=== PATIENT | male | born 1980 | race Caucasian/White ===

== ENCOUNTER 2023-06-19 17:06 | Inpatient (IN) | payer OTHER, SELFPAY ==
[2023-06-19 18:03] VITALS: BMI 30.7
[2023-06-19 19:44] VITALS: BP 134/86; PULSE 76; RESP 18; TEMP 36.3; O2SAT 96
[2023-06-19] MEDS: QUEtiapine Fumarate 400 MG TABLET PO (22:24)
[2023-06-19] MEDS: Melatonin 3 MG TABLET 9 MG PO (22:24)
--- NOTE | 2023-06-19 23:57 | PC.ADMIT ---
Pt is a 43 year old male who was admitted to today at 17:15 due to complaints of heightened depression and +SI. Pt stated that he doesn?t have an ?official plan? but was hyper fixated in the past about jumping in front of a train but it ?seemed really scary.? Pt. now mentions interest in taking fentanyl claiming ?it works for people on accident, so it has to work on purpose.? Pt. reports poor sleep due to drinking large amounts of coffee and being homeless. Pt. reported experiencing auditory hallucinations a little bit and a history of visual hallucinations but hasn?t experienced those ?in a while.? He was compliant with the admission process and was oriented to the unit.
[2023-06-20 08:10] VITALS: BP 128/73; PULSE 65; TEMP 36.8; O2SAT 96
[2023-06-20] MEDS: Lithium Carbonate 300 MG TABLET PO (09:01)
--- NOTE | 2023-06-20 09:41 | HO.PSYADMNOT ---
HPI Date of Service: 06/20/23 Chief Complaint: Si, Psychosis Sources of Information: patient interviewed, chart reviewed and crisis/core team assessment reviewed HPI Subjective Notes: Stone Warning and Conditional Voluntary Narrative: Patient is a 43-year-old male with history bipolar disorder, chronic SI, hypertension, recently discharged from [facility], who presents with mixed manic episode in the face of intermittent medication non adherence and recently evicted from his alf. Patient is verbose, walking around the room while talking, speech is a little bit pressured but he is able to have a conversation. He reports that he has been feeling suicidal for the past year and that a year ago he made a decision he was going to commit suicide but has not found the right time or plan. However, having made this plan has relieved some of his anxiety because when anything challenging happens he will just say it does not matter... meaning that he will eventually be so why worry about it. Patient says that he periodically presents to emergency rooms or respite to buy time so that he can figure out how to commit suicide. Patient says that he has been intermittently not adherent with his medication and also that lithium dose was lowered since he developed of lithium-induced hand tremor; reports significant depression over the past months however he currently feels that he is having a hypomanic episode for the past several days, after discharge from [facility] last week having missed some doses of lithium. Says he has been sleeping very little. Denies alcohol or drug use; very rarely does he experience AVH. Is amenable to medication changes though pessimistic. Past Psychiatric History: Long history of psychiatric illness Recently discharged from [facility] Hospitalized for 9 months in [place] between 2018 to 2019 Medication trials: [place] (causes tremor), Seroquel, Lamictal, clonazepam, Depakote (caused waking) Medical Evaluation Reviewed: Hospitalist Nelda Pending [facility] Medical History (Updated 06/20/23 @ 17:50 by Magno Vallejo MD) Bipolar I disorder with mixed features Family History: Reports presence of family psychiatric illness Social History: Estranged from his family, parents Says his mom was too busy to help raise him Patient says he has a daughter somewhere but no contact Completed high school Worked for years as a carpenters Substance History: Denies any current or recent alcohol or drug use; he says maybe a decade ago he used to drink heavily Trauma History: Emotional childhood trauma Diagnostics Vital Signs (24Hr): Vital Signs - 24 hr 06/19/23 19:44 06/20/23 08:10 Temperature 97.4 F 98.2 F Pulse Rate 76 65 Respiratory Rate 18 Blood Pressure 134/86 128/73 Pulse Oximetry 96 96 Oxygen Delivery Method Room Air Room Air BMI result Body Mass Index 30.7 Labs 06/20/23 08:22 Meds/Allergies Allergies Allergies Allergy/AdvReac Type Severity Reaction Status Date / Time No Known Allergies Allergy Verified 06/19/23 18:03 Mental Status Exam Mental Status Exam Narrative: Pt is alert and oriented; behavior is cooperative, verbose, walking around the room all talking; patient is not in distress; dressed in casual attire with unkempt hair, malodorous; mood is described as it does not matter and affect constricted; eye contact appropriate; Speech verbose, mildly pressured; otherwise normal volume and prosody; some psychomotor agitation present; thought process is organized and goal directed but also circumstantial and can be distracted; Thought content is on a hopelessness to feel better, entertaining the idea of suicide tx; otherwise pertinent to relevant topics and without any delusional content, paranoid ideations or grandiosity; denies +SI/no HI. There is no evidence of perceptual disturbance and denies AVH Patients insight and judgment impaired Assessment & Plan Assessment & Plan (1) Bipolar I disorder with mixed features: Status: Acute Code(s): F31.9 - Bipolar disorder, unspecified Plan Patient is a 43-year-old male with history bipolar disorder, chronic SI, hypertension, recently discharged from [facility], who presents with mixed manic episode in the face of intermittent medication non adherence and recently evicted from his alf. Formulation: -patient is hypomanic and depressed; focused on suicide plan he has been unable to bring to fruition for a year. To some degree under-medicated, on lower dose of past prescribed lithium and Seroquel; asks for Seroquel to be increased back to 800 mg which he says is the only dose at ever helped him sleep. That said, other than preventing manic episodes, it is unclear if this regimen has treated his depression or pessimism. -seems likely there is a characterlogical component to patient's symptoms as well; he is estranged from all his family, feels his mother ignored him and recently kicked out of alf for not participating -patient reports history of multiple concussions says he is has a history of TBI though not diagnosed -Patient is pessimistic that any medication changes will help however agrees to start Vraylar or Latuda (reviewed risks/side effects and patient understands, ask questions and agrees to) Plan: CV Q 15 minute checks Increase lithium ER to 900 mg q.h.s.; previous home dose; patient has developed tremors at this dose in the past but agrees to increase Increase Seroquel to 800 mg q.h.s.; patient says he has been on this dose for years and lower doses do not treat insomnia Strongly consider adding other mood stabilizer such as Vraylar or Latuda; patient agrees Patient educated on: diagnosis, medication risk/benefits and therapeutic strategies Informed Consent: understands Reason for continued inpatient stay Substantial Risk for: rapid decompensation Statement Statement: I have reviewed the history and physical and performed a pertinent examination on my patient. No changes have occurred unless specified. If the History and Physical was not performed prior to admission, the Hospitalist's service will be consulted for completing the admission physical. Time Spent With Patient Time: Total time managing care of this patient today ____ minutes.
--- NOTE | 2023-06-20 11:16 | P.CONHOSP_ITS ---
History of Present Illness Data of Consult Service Date: 06/20/23 Primary Care Provider: Unknown Physician HPI Reason for consult: Admission H&P Pt is a 43-year-old male with a PMH significant for?HTN, GERD, and depression who is admitted to [facility] psychiat[facility] unit for increasing depression with vague SI and previous plan to jump in front of a train. Recently made homeless and not sleeping or taking psychiatric medicatioins. Medical consult for admission H&P. ?Pt states he has been experiencing daily headaches for many years, currently with a mild headache. Otherwise no acute medical complaints at this time. Denies chest pain/ pressure, palpitations. No nausea, vomiting, abdominal pain. Denies shortness of breath. Past history of smoking and alcohol use, though denies recent activity. Admits to occasional marijuana use. Labs reviewed, grossly unremarkable. Vital signs stable. Review of Systems Review of Systems: Mild headache Pt otherwise has no acute medical complaints at this time [facility] Social History Household Members: None Housing: Homeless Housing Other:: Pt. was recently evicted per patient from a [facility] half-way in [place]. Do you presently have visiting nurse or other home services: No Unable to assess alcohol history related to: Unknown Patient Tobacco Use Status: Current everyday Tobacco user Tobacco use type: Cigarette Cigarette Packs Per Day: 0 Cigarettes Per Day: 2 e-Cigarette/Vaping Use: Former Use Second Hand Smoke Exposure: No Substance Use Type: Marijuana Meds Allergies Allergy/AdvReac Type Severity Reaction Status Date / Time No Known Allergies Allergy Verified 06/19/23 18:03 Active Medications: Current Medications Acetaminophen (Acetaminophen 325 Mg Tablet) 650 mg PO Q6H PRN PRN Reason: Headache/Pain Mild Scale (1-3) Al Hydroxide/Mg Hydroxide (Magnesium Hydrox/Alum Hydrox 30 Ml Oral.Susp) 30 ml PO Q6H PRN PRN Reason: Heartburn/Nausea Hydroxyzine HCl (Hydroxyzine Hcl 25 Mg Tablet) 25 mg PO Q6H PRN PRN Reason: Anxiety [place] Carbonate ([place] Carbonate 300 Mg Tablet) 300 mg PO BID [facility] Last Admin: 06/20/23 09:01 Dose: 300 mg Magnesium Hydroxide (Milk Of Magnesia 30 Ml Oral.Susp) 30 ml PO DAILY PRN PRN Reason: Constipation Melatonin (Melatonin 3 Mg Tablet) 9 mg PO BEDTIME [facility] Last Admin: 06/19/23 22:24 Dose: 9 mg Quetiapine Fumarate (Quetiapine Fumarate 400 Mg Tablet) 400 mg PO BEDTIME [facility] Last Admin: 06/19/23 22:24 Dose: 400 mg Quetiapine Fumarate (Quetiapine Fumarate 100 Mg Tablet) 100 mg PO BID PRN PRN Reason: PSYCHOSIS Trazodone HCl (Trazodone Hcl 50 Mg Tablet) 50 mg PO BEDTIME MRX1 PRN PRN Reason: Insomnia Physical Exam Vital Signs and Narrative: Vital Signs: Last Vital Signs Temp 98.2 F 06/20/23 08:10 Pulse 65 06/20/23 08:10 Resp 18 06/19/23 19:44 BP 128/73 06/20/23 08:10 Pulse Ox 96 06/20/23 08:10 O2 Del Method Room Air 06/20/23 08:10 BMI result Body Mass Index 30.7 Constitutional: Alert, in no acute distress. Mental Status: Oriented to person, place and time. Eyes: Pupils are equal, round, and reactive to light. Ear, Nose, and Throat: Oropharynx clear, mucous membranes moist. Ears and nose without deformities. Trachea midline. Respiratory: Clear to auscultation bilaterally. No wheezing, rales, or rhonchi. Cardiovascular: S1, S2 regular. No murmurs, rubs, or gallops. Gastrointestinal: Abdomen soft, non-tender, non-distended. Normal bowel sounds. Neurologic: Cranial nerves II-XII are grossly intact bilaterally. No focal izabel rological deficits. Moves all extremities spontaneously. Skin: No rashes or lesions noted. Musculoskeletal: No cyanosis or clubbing. Extremities: No edema. Assessment and Plan (1) Medical clearance for psychiatric admission: Status: Acute Plan Pt is a 43-year-old male with a PMH significant for?HTN, GERD, and depression who is admitted to [facility] psychiatry unit for increasing depression with vague SI and previous plan to jump in front of a train. Recently made homeless and not sleeping or taking psychiatric medicatioins. Medical consult for admission H&P. Mood disorder Plan as per psychiatry Chronic headaches Patient states has been getting daily headaches for many years Naproxen 250mg TID prn, acetaminophen prn HTN Pt reports hx of HTN not currently on home meds BP currently normotensive No indication for antihypertensives at this time GERD Not currently on home meds, no epigastric/substernal complaints at this time Magnesium hydroxide/aluminum hydroxide prn Consider famotidine if symptoms develop/persist Thank you for allowing us to participate in the care of this patient. Signing off at this time. Please let us know if there are any acute complaints or que stions. Time Spent With Patient Time: Total time managing care of this patient today ____ minutes.
[2023-06-20] MEDS: LORazepam 1 MG TABLET PO ×2 (14:39→21:25)
[2023-06-20 14:47] LABS: Alanine Aminotransferase 104 U/L (0-40); Albumin Level 4.1 g/dL (3.5-5.0); Alkaline Phosphatase 80 U/L (39-117); Anion Gap 12 (12-20); Aspartate Amino Transferase 47 U/L (5-37); Bilirubin Total 0.4 mg/dL (0.0-1.0); Blood Urea Nitrogen 11 mg/dL (9-16); Calcium 9.8 mg/dL (8.4-10.2); Carbon Dioxide 22 mmol/L (22-29); Chloride 109 mmol/L (96-108); Cholesterol 205 mg/dL (<200); Estimated Glomerular Filt Rate > 60; Glucose Fasting 97 mg/dL (60-99); HDL Cholesterol 43 mg/dL (>40); LDL Cholesterol Calculated 139 mg/dL (<100); Potassium 4.3 mmol/L (3.3-5.1); Sodium 139 mmol/L (135-145); Total Protein 6.5 g/dL (6.5-8.0); Triglycerides 115 mg/dL (<150)
[2023-06-20 18:00] VITALS: BP 138/89; PULSE 98; RESP 18; TEMP 36.6; O2SAT 98
[2023-06-20] MEDS: Melatonin 3 MG TABLET 12 MG PO (21:25)
[2023-06-20] MEDS: QUEtiapine Fumarate 400 MG TABLET 800 MG PO (22:09)
[2023-06-21 09:11] VITALS: BP 121/67; PULSE 68; RESP 18; TEMP 37.2; O2SAT 93
[2023-06-21] MEDS: LORazepam 1 MG TABLET PO ×2 (11:10→21:59)
--- NOTE | 2023-06-21 19:41 | HO.PSYCHPN ---
Subjective Subjective Date of Service: 06/21/23 Reason For Visit: Si, Psychosis Interim History: 43-year-old male with history bipolar disorder, chronic SI, hypertension, recently discharged from [facility], who presents with mixed manic episode in the face of intermittent medication non adherence and recently evicted from his assisted. Pt reports he is still feeling suicidal ideation and still think she will kill himself if he was not in the hospital. Medication Compliance: Yes Side effects from medications: No Attending Groups: No Review of Systems Acute medical concerns: No Medical Review of Systems: unchanged Review of Systems Review of Systems Mild headache Pt otherwise has no acute medical complaints at this time Mental Status Exam Mental Status Exam Narrative: Pt is alert and oriented; behavior is cooperative, verbose, walking around the room all talking; patient is not in distress; dressed in casual attire with unkempt hair, malodorous; mood is described as it does not matter and affect constricted; eye contact appropriate; Speech verbose, mildly pressured; otherwise normal volume and prosody; some psychomotor agitation present; thought process is organized and goal directed but also circumstantial and can be distracted; Thought content is on a hopelessness to feel better, entertaining the idea of suicide tx; otherwise pertinent to relevant topics and without any delusional content, paranoid ideations or grandiosity; denies +SI/no HI. There is no evidence of perceptual disturbance and denies AVH Patients insight and judgment impaired Diagnostics Vital Signs (24Hr): Vital Signs - 24 hr 06/21/23 09:11 Temperature 98.9 F Pulse Rate 68 Respiratory Rate 18 Blood Pressure 121/67 Pulse Oximetry 93 Oxygen Delivery Method Room Air BMI result Body Mass Index 30.7 Labs 06/20/23 08:22 Labs: Laboratory Results - last 48 hr 06/20/23 08:22 Sodium 139 Potassium 4.3 Chloride 109 H Carbon Dioxide 22 Anion Gap 12 BUN 11 Creatinine 0.96 Estim Creat Clear Calc 117.0 Estimated GFR > 60 Fasting Glucose 97 Calcium 9.8 Total Bilirubin 0.4 AST 47 H ALT 104 H Alkaline Phosphatase 80 Total Protein 6.5 Albumin 4.1 Triglycerides 115 Cholesterol 205 H LDL Cholesterol, Calc 139 H HDL Cholesterol 43 Medications Medications Current Medications Acetaminophen (Acetaminophen 325 Mg Tablet) 650 mg PO Q6H PRN PRN Reason: Headache/Pain Mild Scale (1-3) Al Hydroxide/Mg Hydroxide (Magnesium Hydrox/Alum Hydrox 30 Ml Oral.Susp) 30 ml PO Q6H PRN PRN Reason: Heartburn/Nausea Hydroxyzine HCl (Hydroxyzine Hcl 25 Mg Tablet) 25 mg PO Q6H PRN PRN Reason: Anxiety [place] Carbonate ([place] Carbonate Er 450 Mg Tablet.Er) 900 mg PO BEDTIME [facility] Lorazepam (Lorazepam 1 Mg Tablet) 1 mg PO BID [facility] Last Admin: 06/21/23 11:10 Dose: 1 mg Magnesium Hydroxide (Milk Of Magnesia 30 Ml Oral.Susp) 30 ml PO DAILY PRN PRN Reason: Constipation Melatonin (Melatonin 3 Mg Tablet) 12 mg PO BEDTIME [facility] Last Admin: 06/20/23 21:25 Dose: 12 mg Naproxen (Naproxen 250 Mg Tablet) 250 mg PO TID PRN PRN Reason: Headache Quetiapine Fumarate (Quetiapine Fumarate 100 Mg Tablet) 100 mg PO BID PRN PRN Reason: PSYCHOSIS Quetiapine Fumarate (Quetiapine Fumarate 400 Mg Tablet) 800 mg PO BEDTIME [facility] Last Admin: 06/20/23 22:09 Dose: 800 mg Trazodone HCl (Trazodone Hcl 50 Mg Tablet) 50 mg PO BEDTIME MRX1 PRN PRN Reason: Insomnia Allergies Allergies Allergy/AdvReac Type Severity Reaction Status Date / Time No Known Allergies Allergy Verified 06/19/23 18:03 Assessment & Plan Assessment & Plan (1) Bipolar I disorder with mixed features: Status: Acute Code(s): F31.9 - Bipolar disorder, unspecified Plan Patient is a 43-year-old male with history bipolar disorder, chronic SI, hypertension, recently discharged from [facility], who presents with mixed manic episode in the face of intermittent medication non adherence and recently evicted from his assisted. Formulation: -patient is hypomanic and depressed; focused on suicide plan he has been unable to bring to fruition for a year. To some degree under-medicated, on lower dose of past prescribed lithium and Seroquel; asks for Seroquel to be increased back to 800 mg which he says is the only dose at ever helped him sleep. That said, other than preventing manic episodes, it is unclear if this regimen has treated his depression or pessimism. -seems likely there is a characterlogical component to patient's symptoms as well; he is estranged from all his family, feels his mother ignored him and recently kicked out of assisted for not participating -patient reports history of multiple concussions says he is has a history of TBI though not diagnosed -Patient is pessimistic that any medication changes will help however agrees to start Vraylar or Latuda (reviewed risks/side effects and patient understands, ask questions and agrees to) Plan: CV Q 15 minute checks Increase lithium ER to 900 mg q.h.s.; previous home dose; patient has developed tremors at this dose in the past but agrees to increase Increase Seroquel to 800 mg q.h.s.; patient says he has been on this dose for years and lower doses do not treat insomnia Strongly consider adding other mood stabilizer such as Vraylar or Latuda; patient agrees 06/21/23 continue treatmetn plan Patient educated on: diagnosis, medication risk/benefits and therapeutic strategies Informed Consent: further education needed Reason for continued inpatient stay Substantial Risk for: harm to self, inability to function and rapid decompensation Time Spent With Patient Time: Total time managing care of this patient today ____ minutes.
[2023-06-21] MEDS: Melatonin 3 MG TABLET 12 MG PO (21:58)
[2023-06-21] MEDS: QUEtiapine Fumarate 400 MG TABLET 800 MG PO (21:59)
[2023-06-21] MEDS: Lithium Carbonate ER 450 MG TABLET.ER 900 MG PO (21:59)
[2023-06-22 07:55] VITALS: BP 114/69; PULSE 73; RESP 18; TEMP 36; O2SAT 95
[2023-06-22] MEDS: LORazepam 1 MG TABLET PO ×2 (09:17→21:17)
--- NOTE | 2023-06-22 10:42 | P.PNPSI_ITS ---
Subjective Subjective Date of Service: 06/22/23 Reason For Visit: Si, Psychosis Interim History: 43-year-old male with history bipolar disorder, chronic SI, hypertension, recently discharged from [facility], who presents with mixed manic episode in the face of intermittent medication non adherence and recently evicted from his alf. Pt reports he is still feeling suicidal ideation and still think he will kill himself if he was not in the hospital. Pt irritable, paranoid. pacing at times. Medication Compliance: Yes Side effects from medications: No Attending Groups: No Review of Systems Acute medical concerns: No Medical Review of Systems: unchanged Review of Systems Review of Systems Mild headache Pt otherwise has no acute medical complaints at this time Mental Status Exam Mental Status Exam Narrative: Pt is alert and oriented; behavior is cooperative, verbose, walking around the room all talking; patient is not in distress; dressed in casual attire with unkempt hair, malodorous; mood is described as it does not matter and affect constricted; eye contact appropriate; Speech verbose, mildly pressured; otherwise normal volume and prosody; some psychomotor agitation present; thought process is organized and goal directed but also circumstantial and can be distracted; Thought content is on a hopelessness to feel better, entertaining the idea of suicide tx; otherwise pertinent to relevant topics and without any delusional content, paranoid ideations or grandiosity; denies +SI/no HI. There is no evidence of perceptual disturbance and denies AVH. Patients insight and judgment impaired Diagnostics Vital Signs (24Hr): Vital Signs - 24 hr 06/22/23 07:55 Temperature 96.8 F Pulse Rate 73 Respiratory Rate 18 Blood Pressure 114/69 Pulse Oximetry 95 Oxygen Delivery Method Room Air BMI result Body Mass Index 30.7 Labs 06/20/23 08:22 Labs: Laboratory Results - last 48 hr 06/20/23 08:22 Sodium 139 Potassium 4.3 Chloride 109 H Carbon Dioxide 22 Anion Gap 12 BUN 11 Creatinine 0.96 Estim Creat Clear Calc 117.0 Estimated GFR > 60 Fasting Glucose 97 Calcium 9.8 Total Bilirubin 0.4 AST 47 H ALT 104 H Alkaline Phosphatase 80 Total Protein 6.5 Albumin 4.1 Triglycerides 115 Cholesterol 205 H LDL Cholesterol, Calc 139 H HDL Cholesterol 43 Medications Medications Current Medications Acetaminophen (Acetaminophen 325 Mg Tablet) 650 mg PO Q6H PRN PRN Reason: Headache/Pain Mild Scale (1-3) Al Hydroxide/Mg Hydroxide (Magnesium Hydrox/Alum Hydrox 30 Ml Oral.Susp) 30 ml PO Q6H PRN PRN Reason: Heartburn/Nausea Hydroxyzine HCl (Hydroxyzine Hcl 25 Mg Tablet) 25 mg PO Q6H PRN PRN Reason: Anxiety [place] Carbonate ([place] Carbonate Er 450 Mg Tablet.Er) 900 mg PO BEDTIME [facility] Last Admin: 06/21/23 21:59 Dose: 900 mg Lorazepam (Lorazepam 1 Mg Tablet) 1 mg PO BID [facility] Last Admin: 06/22/23 09:17 Dose: 1 mg Magnesium Hydroxide (Milk Of Magnesia 30 Ml Oral.Susp) 30 ml PO DAILY PRN PRN Reason: Constipation Melatonin (Melatonin 3 Mg Tablet) 12 mg PO BEDTIME [facility] Last Admin: 06/21/23 21:58 Dose: 12 mg Naproxen (Naproxen 250 Mg Tablet) 250 mg PO TID PRN PRN Reason: Headache Quetiapine Fumarate (Quetiapine Fumarate 100 Mg Tablet) 100 mg PO BID PRN PRN Reason: PSYCHOSIS Quetiapine Fumarate (Quetiapine Fumarate 400 Mg Tablet) 800 mg PO BEDTIME [facility] Last Admin: 06/21/23 21:59 Dose: 800 mg Trazodone HCl (Trazodone Hcl 50 Mg Tablet) 50 mg PO BEDTIME MRX1 PRN PRN Reason: Insomnia Allergies Allergies Allergy/AdvReac Type Severity Reaction Status Date / Time No Known Allergies Allergy Verified 06/19/23 18:03 Assessment & Plan Assessment & Plan (1) Bipolar I disorder with mixed features: Status: Acute Code(s): F31.9 - Bipolar disorder, unspecified Plan Patient is a 43-year-old male with history bipolar disorder, chronic SI, hypertension, recently discharged from [facility], who presents with mixed manic episode in the face of intermittent medication non adherence and recently evicted from his alf. Formulation: -patient is hypomanic and depressed; focused on suicide plan he has been unable to bring to fruition for a year. To some degree under-medicated, on lower dose of past prescribed lithium and Seroquel; asks for Seroquel to be increased back to 800 mg which he says is the only dose at ever helped him sleep. That said, other than preventing manic episodes, it is unclear if this regimen has treated his depression or pessimism. -seems likely there is a characterlogical component to patient's symptoms as well; he is estranged from all his family, feels his mother ignored him and recently kicked out of alf for not participating -patient reports history of multiple concussions says he is has a history of TBI though not diagnosed -Patient is pessimistic that any medication changes will help however agrees to start Vraylar or Latuda (reviewed risks/side effects and patient understands, ask questions and agrees to) Plan: CV Q 15 minute checks Increase lithium ER to 900 mg q.h.s.; previous home dose; patient has developed tremors at this dose in the past but agrees to increase Increase Seroquel to 800 mg q.h.s.; patient says he has been on this dose for years and lower doses do not treat insomnia Strongly consider adding other mood stabilizer such as Vraylar or Latuda; patient agrees 06/21/23 continue treatment plan 06/22/23 continue treatment plan Patient educated on: medication risk/benefits and therapeutic strategies Informed Consent: further education needed Reason for continued inpatient stay Substantial Risk for: harm to self, inability to function and rapid decompensation Time Spent With Patient Time: Total time managing care of this patient today ____ minutes.
[2023-06-22 19:47] VITALS: BP 133/77; PULSE 92; TEMP 36.6
[2023-06-22] MEDS: Lithium Carbonate ER 450 MG TABLET.ER 900 MG PO (21:17)
[2023-06-22] MEDS: Melatonin 3 MG TABLET 12 MG PO (21:17)
[2023-06-22] MEDS: QUEtiapine Fumarate 400 MG TABLET 800 MG PO (21:52)
[2023-06-23 08:30] VITALS: BP 109/69; PULSE 71; RESP 18; TEMP 36.3; O2SAT 96
[2023-06-23] MEDS: LORazepam 1 MG TABLET PO ×2 (08:58→21:17)
--- NOTE | 2023-06-23 09:32 | HO.PSYCHPN ---
Subjective Subjective Date of Service: 06/23/23 Reason For Visit: Si, Psychosis Subjective Notes: Conditional Voluntary Interim History: Reviewed in team and . Pt presents guarded and brief during 1:1. He reports suicidal ideation with no plan. Pt stated, I'm waiting to see if the increase in lithium works . Medication Compliance: Yes Side effects from medications: No Review of Systems Constitutional: Reports as per HPI Eyes: Reports as per HPI Reports as per HPI Cardiovascular: Reports as per HPI Respiratory: Reports as per HPI Gastrointestinal: Reports as per HPI Genitourinary: Reports as per HPI Musculoskeletal: Reports as per HPI Skin/Breast: Reports as per HPI Reports as per HPI Psychiatric: Reports as per HPI Endocrine: Reports as per HPI Hematologic/Lymphatic: Reports as per HPI Allergic/Immunologic: Reports as per HPI Mental Status Exam Mental Status Exam Narrative: Pt is alert and oriented; behavior is guarded and calm; dressed in casual attire; mood is described as depressed ; eye contact appropriate; Speech is normal rate, volume and prosody and not pressured; no psychomotor agitation/retardation present; thought process is organized and goal directed; Thought content is on tx; otherwise pertinent to relevant topics and without any delusional content, paranoid ideations or grandiosity; denies HI. he reports suicidal ideation with no plan. There is no evidence of perceptual disturbance. Patients insight and judgment are poor. Diagnostics Vital Signs (24Hr): Vital Signs - 24 hr 06/22/23 19:47 Temperature 97.8 F Pulse Rate 92 Blood Pressure 133/77 BMI result Body Mass Index 30.7 Labs 06/20/23 08:22 Medications Medications Current Medications Acetaminophen (Acetaminophen 325 Mg Tablet) 650 mg PO Q6H PRN PRN Reason: Headache/Pain Mild Scale (1-3) Al Hydroxide/Mg Hydroxide (Magnesium Hydrox/Alum Hydrox 30 Ml Oral.Susp) 30 ml PO Q6H PRN PRN Reason: Heartburn/Nausea Hydroxyzine HCl (Hydroxyzine Hcl 25 Mg Tablet) 25 mg PO Q6H PRN PRN Reason: Anxiety [place] Carbonate ([place] Carbonate Er 450 Mg Tablet.Er) 900 mg PO BEDTIME [facility] Last Admin: 06/22/23 21:17 Dose: 900 mg Lorazepam (Lorazepam 1 Mg Tablet) 1 mg PO BID [facility] Last Admin: 06/23/23 08:58 Dose: 1 mg Magnesium Hydroxide (Milk Of Magnesia 30 Ml Oral.Susp) 30 ml PO DAILY PRN PRN Reason: Constipation Melatonin (Melatonin 3 Mg Tablet) 12 mg PO BEDTIME [facility] Last Admin: 06/22/23 21:17 Dose: 12 mg Naproxen (Naproxen 250 Mg Tablet) 250 mg PO TID PRN PRN Reason: Headache Quetiapine Fumarate (Quetiapine Fumarate 100 Mg Tablet) 100 mg PO BID PRN PRN Reason: PSYCHOSIS Quetiapine Fumarate (Quetiapine Fumarate 400 Mg Tablet) 800 mg PO BEDTIME [facility] Last Admin: 06/22/23 21:52 Dose: 800 mg Trazodone HCl (Trazodone Hcl 50 Mg Tablet) 50 mg PO BEDTIME MRX1 PRN PRN Reason: Insomnia Allergies Allergies Allergy/AdvReac Type Severity Reaction Status Date / Time No Known Allergies Allergy Verified 06/19/23 18:03 Assessment & Plan Assessment & Plan (1) Bipolar I disorder with mixed features: Status: Acute Code(s): F31.9 - Bipolar disorder, unspecified Plan Patient is a 43-year-old male with history bipolar disorder, chronic SI, hypertension, recently discharged from [facility], who presents with mixed manic episode in the face of intermittent medication non adherence and recently evicted from his nursing home. Formulation: -patient is hypomanic and depressed; focused on suicide plan he has been unable to bring to fruition for a year. To some degree under-medicated, on lower dose of past prescribed lithium and Seroquel; asks for Seroquel to be increased back to 800 mg which he says is the only dose at ever helped him sleep. That said, other than preventing manic episodes, it is unclear if this regimen has treated his depression or pessimism. -seems likely there is a characterlogical component to patient's symptoms as well; he is estranged from all his family, feels his mother ignored him and recently kicked out of nursing home for not participating -patient reports history of multiple concussions says he is has a history of TBI though not diagnosed -Patient is pessimistic that any medication changes will help however agrees to start Vraylar or Latuda (reviewed risks/side effects and patient understands, ask questions and agrees to) Plan: CV Q 15 minute checks Increase lithium ER to 900 mg q.h.s.; previous home dose; patient has developed tremors at this dose in the past but agrees to increase Increase Seroquel to 800 mg q.h.s.; patient says he has been on this dose for years and lower doses do not treat insomnia Strongly consider adding other mood stabilizer such as Vraylar or Latuda; patient agrees 06/21/23 continue treatmetn plan 06/23: start vraylar 1.5mg PO daily Patient educated on: diagnosis, medication risk/benefits and therapeutic strategies Informed Consent: understands and further education needed Reason for continued inpatient stay Substantial Risk for: med/psych decompensation Time Spent With Patient Time: Total time managing care of this patient today 30____ minutes.
[2023-06-23 18:00] VITALS: BP 136/76; PULSE 92; RESP 16; TEMP 36.1; O2SAT 96
[2023-06-23] MEDS: Lithium Carbonate ER 450 MG TABLET.ER 900 MG PO (21:17)
[2023-06-23] MEDS: Melatonin 3 MG TABLET 12 MG PO (21:17)
[2023-06-23] MEDS: QUEtiapine Fumarate 400 MG TABLET 800 MG PO (21:47)
[2023-06-24 08:00] VITALS: BP 112/63; PULSE 64; TEMP 36.2; O2SAT 93
[2023-06-24] MEDS: LORazepam 1 MG TABLET PO ×2 (09:08→21:22)
[2023-06-24] MEDS: Cariprazine HCl 1.5 MG CAPSULE PO (09:08)
[2023-06-24] MEDS: Omeprazole 40 MG CAPSULE.DR PO (15:37)
--- NOTE | 2023-06-24 16:34 | HO.PSYCHPN ---
Subjective Subjective Date of Service: 06/24/23 Reason For Visit: Si, Psychosis Interim History: Pt seen, discussed with team Plan of care reviewed Isolative Team reports pt asked to leave his skilled nursing, he has dropped services, refused follow up. Today asks for Prilosec for GERD. Given 40 mg today with 20 bid to begin 06/25. Compliant with regime, refusing to engage in out patien services. Medication Compliance: Yes Side effects from medications: No Attending Groups: No Review of Systems Acute medical concerns: No Medical Review of Systems: unchanged Mental Status Exam Mental Status Exam Patient Appearance: Disheveled Patient Orientation: Person, Place, Time and Situation Level of Consciousness: Alert Patient Behavior: Guarded, Resistive to Care and Distractible Mood Description: Hostile Affect Description: Flat Patient Cognition Impaired: No Ability to Follow Directions: Fair Speech Pattern: Spontaneous Speech Memory Description: Episodic Impaired Hallucinations: None Delusions: Paranoid Ideation Thought Process: Distracted Thought Content: positive for Circumstantial, positive for Suicidal Ideation (denies) and positive for Homicidal Ideation (denies) Depressive Symptoms: Increased Irritability and Thoughts of /Suicide (denies) Judgement: Good Diagnostics Vital Signs (24Hr): Vital Signs - 24 hr 06/23/23 18:00 06/24/23 08:00 Temperature 96.9 F 97.2 F Pulse Rate 92 64 Respiratory Rate 16 Blood Pressure 136/76 112/63 Pulse Oximetry 96 93 Oxygen Delivery Method Room Air Room Air BMI result Body Mass Index 30.7 Labs 06/20/23 08:22 Medications Medications Current Medications Acetaminophen (Acetaminophen 325 Mg Tablet) 650 mg PO Q6H PRN PRN Reason: Headache/Pain Mild Scale (1-3) Al Hydroxide/Mg Hydroxide (Magnesium Hydrox/Alum Hydrox 30 Ml Oral.Susp) 30 ml PO Q6H PRN PRN Reason: Heartburn/Nausea Cariprazine (Cariprazine Hcl 1.5 Mg Capsule) 1.5 mg PO DAILY [facility] Last Admin: 06/24/23 09:08 Dose: 1.5 mg Hydroxyzine HCl (Hydroxyzine Hcl 25 Mg Tablet) 25 mg PO Q6H PRN PRN Reason: Anxiety [place] Carbonate ([place] Carbonate Er 450 Mg Tablet.Er) 900 mg PO BEDTIME [facility] Last Admin: 06/23/23 21:17 Dose: 900 mg Lorazepam (Lorazepam 1 Mg Tablet) 1 mg PO BID [facility] Last Admin: 06/24/23 09:08 Dose: 1 mg Magnesium Hydroxide (Milk Of Magnesia 30 Ml Oral.Susp) 30 ml PO DAILY PRN PRN Reason: Constipation Melatonin (Melatonin 3 Mg Tablet) 12 mg PO BEDTIME [facility] Last Admin: 06/23/23 21:17 Dose: 12 mg Naproxen (Naproxen 250 Mg Tablet) 250 mg PO TID PRN PRN Reason: Headache Omeprazole (Omeprazole 20 Mg Capsule.Dr) 20 mg PO BID [facility] Quetiapine Fumarate (Quetiapine Fumarate 100 Mg Tablet) 100 mg PO BID PRN PRN Reason: PSYCHOSIS Quetiapine Fumarate (Quetiapine Fumarate 400 Mg Tablet) 800 mg PO BEDTIME [facility] Last Admin: 06/23/23 21:47 Dose: 800 mg Trazodone HCl (Trazodone Hcl 50 Mg Tablet) 50 mg PO BEDTIME MRX1 PRN PRN Reason: Insomnia Allergies Allergies Allergy/AdvReac Type Severity Reaction Status Date / Time No Known Allergies Allergy Verified 06/19/23 18:03 Assessment & Plan Assessment & Plan (1) Bipolar I disorder with mixed features: Status: Acute Code(s): F31.9 - Bipolar disorder, unspecified Plan Patient is a 43-year-old male with history bipolar disorder, chronic SI, hypertension, recently discharged from [facility], who presents with mixed manic episode in the face of intermittent medication non adherence and recently evicted from his skilled nursing. Formulation: -patient is hypomanic and depressed; focused on suicide plan he has been unable to bring to fruition for a year. To some degree under-medicated, on lower dose of past prescribed lithium and Seroquel; asks for Seroquel to be increased back to 800 mg which he says is the only dose at ever helped him sleep. That said, other than preventing manic episodes, it is unclear if this regimen has treated his depression or pessimism. -seems likely there is a characterlogical component to patient's symptoms as well; he is estranged from all his family, feels his mother ignored him and recently kicked out of skilled nursing for not participating -patient reports history of multiple concussions says he is has a history of TBI though not diagnosed -Patient is pessimistic that any medication changes will help however agrees to start Vraylar or Latuda (reviewed risks/side effects and patient understands, ask questions and agrees to) Plan: CV Q 15 minute checks Increase lithium ER to 900 mg q.h.s.; previous home dose; patient has developed tremors at this dose in the past but agrees to increase Increase Seroquel to 800 mg q.h.s.; patient says he has been on this dose for years and lower doses do not treat insomnia Strongly consider adding other mood stabilizer such as Vraylar or Latuda; patient agrees 06/21/23 continue treatmetn plan 06/23: start vraylar 1.5mg PO daily 06/24: continue current regime and plan Prilosec 20 mg bid Continue to attempt to engage pt in a treatment plan/aftercare Patient educated on: therapeutic strategies Informed Consent: further education needed Reason for continued inpatient stay Substantial Risk for: rapid decompensation Time Spent With Patient Time: Total time managing care of this patient today ____ minutes.
[2023-06-24 18:00] VITALS: BP 133/80; PULSE 114; RESP 16; TEMP 36; O2SAT 98
[2023-06-24] MEDS: Melatonin 3 MG TABLET 12 MG PO (21:22)
[2023-06-24] MEDS: Omeprazole 20 MG CAPSULE.DR PO (21:23)
[2023-06-24] MEDS: Lithium Carbonate ER 450 MG TABLET.ER 900 MG PO (21:23)
[2023-06-24] MEDS: QUEtiapine Fumarate 400 MG TABLET 800 MG PO (21:51)
[2023-06-25] MEDS: Omeprazole 20 MG CAPSULE.DR PO ×2 (08:01→21:37)
[2023-06-25] MEDS: Cariprazine HCl 1.5 MG CAPSULE PO (08:01)
[2023-06-25] MEDS: LORazepam 1 MG TABLET PO ×2 (08:01→21:37)
[2023-06-25 08:35] VITALS: BP 112/72; PULSE 98; RESP 16; TEMP 36.2; O2SAT 96
[2023-06-25 09:09] LABS: Lithium 0.62 mmol/L (0.60-1.20)
--- NOTE | 2023-06-25 17:00 | HO.PSYCHPN ---
Subjective Subjective Date of Service: 06/25/23 Reason For Visit: Si, Psychosis Interim History: Pt seen, discussed with team. Pt had declined all referral offers Accepting of medications. Pt can return to [facility] care t, however [facility] will not be an option. He was evicted in April. Team reports increase in sx when housing is threatened Will plan to discharge 06/26 to a alf as pt is refusing of referrals. Encouraged pt to reconsider services offered for out pt support. Medication Compliance: Yes Side effects from medications: No Attending Groups: No Review of Systems Acute medical concerns: No Medical Review of Systems: unchanged Mental Status Exam Mental Status Exam Patient Appearance: Disheveled Patient Orientation: Person, Place, Time and Situation Level of Consciousness: Alert Patient Behavior: Guarded, Resistive to Care and Distractible Mood Description: Hostile Affect Description: Flat Patient Cognition Impaired: No Ability to Follow Directions: Fair Speech Pattern: Spontaneous Speech Memory Description: Episodic Impaired Hallucinations: None Delusions: Paranoid Ideation Thought Process: Distracted Thought Content: positive for Circumstantial, positive for Suicidal Ideation (denies) and positive for Homicidal Ideation (denies) Depressive Symptoms: Increased Irritability and Thoughts of /Suicide (denies) Judgement: Good Diagnostics Vital Signs (24Hr): Vital Signs - 24 hr 06/24/23 18:00 06/25/23 08:35 Temperature 96.8 F 97.1 F Pulse Rate 114 H 98 Respiratory Rate 16 16 Blood Pressure 133/80 112/72 Pulse Oximetry 98 96 Oxygen Delivery Method Room Air Room Air BMI result Body Mass Index 30.7 Labs 06/20/23 08:22 Labs: Laboratory Results - last 48 hr 06/25/23 08:04 [place] 0.62 Medications Medications Current Medications Acetaminophen (Acetaminophen 325 Mg Tablet) 650 mg PO Q6H PRN PRN Reason: Headache/Pain Mild Scale (1-3) Al Hydroxide/Mg Hydroxide (Magnesium Hydrox/Alum Hydrox 30 Ml Oral.Susp) 30 ml PO Q6H PRN PRN Reason: Heartburn/Nausea Cariprazine (Cariprazine Hcl 1.5 Mg Capsule) 1.5 mg PO DAILY [facility] Last Admin: 06/25/23 08:01 Dose: 1.5 mg Hydroxyzine HCl (Hydroxyzine Hcl 25 Mg Tablet) 25 mg PO Q6H PRN PRN Reason: Anxiety [place] Carbonate ([place] Carbonate Er 450 Mg Tablet.Er) 900 mg PO BEDTIME [facility] Last Admin: 06/24/23 21:23 Dose: 900 mg Lorazepam (Lorazepam 1 Mg Tablet) 1 mg PO BID [facility] Last Admin: 06/25/23 08:01 Dose: 1 mg Magnesium Hydroxide (Milk Of Magnesia 30 Ml Oral.Susp) 30 ml PO DAILY PRN PRN Reason: Constipation Melatonin (Melatonin 3 Mg Tablet) 12 mg PO BEDTIME [facility] Last Admin: 06/24/23 21:22 Dose: 12 mg Naproxen (Naproxen 250 Mg Tablet) 250 mg PO TID PRN PRN Reason: Headache Omeprazole (Omeprazole 20 Mg Capsule.Dr) 20 mg PO BID [facility] Last Admin: 06/25/23 08:01 Dose: 20 mg Quetiapine Fumarate (Quetiapine Fumarate 100 Mg Tablet) 100 mg PO BID PRN PRN Reason: PSYCHOSIS Quetiapine Fumarate (Quetiapine Fumarate 400 Mg Tablet) 800 mg PO BEDTIME [facility] Last Admin: 06/24/23 21:51 Dose: 800 mg Trazodone HCl (Trazodone Hcl 50 Mg Tablet) 50 mg PO BEDTIME MRX1 PRN PRN Reason: Insomnia Allergies Allergies Allergy/AdvReac Type Severity Reaction Status Date / Time No Known Allergies Allergy Verified 06/19/23 18:03 Assessment & Plan Assessment & Plan (1) Bipolar I disorder with mixed features: Status: Acute Code(s): F31.9 - Bipolar disorder, unspecified Plan Patient is a 43-year-old male with history bipolar disorder, chronic SI, hypertension, recently discharged from [facility], who presents with mixed manic episode in the face of intermittent medication non adherence and recently evicted from his skilled nursing. Formulation: -patient is hypomanic and depressed; focused on suicide plan he has been unable to bring to fruition for a year. To some degree under-medicated, on lower dose of past prescribed lithium and Seroquel; asks for Seroquel to be increased back to 800 mg which he says is the only dose at ever helped him sleep. That said, other than preventing manic episodes, it is unclear if this regimen has treated his depression or pessimism. -seems likely there is a characterlogical component to patient's symptoms as well; he is estranged from all his family, feels his mother ignored him and recently kicked out of skilled nursing for not participating -patient reports history of multiple concussions says he is has a history of TBI though not diagnosed -Patient is pessimistic that any medication changes will help however agrees to start Vraylar or Latuda (reviewed risks/side effects and patient understands, ask questions and agrees to) Plan: CV Q 15 minute checks Increase lithium ER to 900 mg q.h.s.; previous home dose; patient has developed tremors at this dose in the past but agrees to increase Increase Seroquel to 800 mg q.h.s.; patient says he has been on this dose for years and lower doses do not treat insomnia Strongly consider adding other mood stabilizer such as Vraylar or Latuda; patient agrees 06/21/23 continue treatmetn plan 06/23: start vraylar 1.5mg PO daily 06/25/23 continue current regime, discharge planning, encourage pt to accept community supports. Patient educated on: therapeutic strategies Informed Consent: understands Reason for continued inpatient stay Substantial Risk for: rapid decompensation Time Spent With Patient Time: Total time managing care of this patient today ____ minutes.
[2023-06-25 18:00] VITALS: BP 140/94; PULSE 101; TEMP 36.2; O2SAT 95
[2023-06-25] MEDS: Lithium Carbonate ER 450 MG TABLET.ER 900 MG PO (21:37)
[2023-06-25] MEDS: Melatonin 3 MG TABLET 12 MG PO (21:37)
[2023-06-25] MEDS: QUEtiapine Fumarate 400 MG TABLET 800 MG PO (21:37)
[2023-06-26] MEDS: Cariprazine HCl 1.5 MG CAPSULE PO (08:46)
[2023-06-26] MEDS: Omeprazole 20 MG CAPSULE.DR PO (08:46)
[2023-06-26 09:48] VITALS: BP 129/74; PULSE 95; RESP 16; TEMP 36.6; O2SAT 97
--- NOTE | 2023-06-26 17:55 | PM.PSYDC ---
DS: Providers Provider Date of Service: 06/26/23 Date of admission: 06/19/23 17:06 Date of discharge: 06/26/23 Primary care physician: Unknown Physician Admitting clinician: Magno Vallejo Attending physician on admission: Magno Vallejo Consults: 06/19/23 18:30 Consult to Hospitalist Routine Comment: Consulting Provider: Hospitalist Reason For Exam: direct admission from [facility] Attending physician on discharge: Claudio Fitch Discharging clinician: Diane García DS: Diagnosis Discharge Diagnosis (1) Bipolar I disorder with mixed features: Status: Acute DS: Medications Discharge Medications Home Medications: Previous Rx's Medication Instructions Recorded cariprazine 1.5 mg capsule 1.5 mg PO DAILY #0 caps 06/26/23 (Vraylar) lithium carbonate 450 mg 900 mg (2 x 450 mg) PO BEDTIME #0 06/26/23 tablet,extended release tabs melatonin 3 mg tablet 12 mg (4 x 3 mg) PO BEDTIME #0 tabs 06/26/23 omeprazole 20 mg capsule,delayed 20 mg PO BID #0 caps 06/26/23 release quetiapine 400 mg tablet 800 mg (2 x 400 mg) PO BEDTIME #0 06/26/23 tabs Mental Status Exam Mental Status Exam Patient Appearance: Disheveled Patient Orientation: Person, Place, Time and Situation Level of Consciousness: Alert Patient Behavior: Guarded, Resistive to Care and Distractible Mood Description: Hostile Affect Description: Flat Patient Cognition Impaired: No Ability to Follow Directions: Fair Speech Pattern: Spontaneous Speech Memory Description: Episodic Impaired Hallucinations: None Delusions: Paranoid Ideation Thought Process: Distracted Thought Content: positive for Circumstantial, positive for Suicidal Ideation (denies) and positive for Homicidal Ideation (denies) Depressive Symptoms: Increased Irritability and Thoughts of /Suicide (denies) Judgement: Good Data Data Completed and Pending Completed studies during hospitalization [Text1]: 06/20/23 06/25/23 08:22 08:04 Sodium 139 Potassium 4.3 Chloride 109 H Carbon Dioxide 22 Anion Gap 12 BUN 11 Creatinine 0.96 Estim Creat Clear Calc 117.0 Estimated GFR > 60 Fasting Glucose 97 Calcium 9.8 Total Bilirubin 0.4 AST 47 H ALT 104 H Alkaline Phosphatase 80 Total Protein 6.5 Albumin 4.1 Triglycerides 115 Cholesterol 205 H LDL Cholesterol, Calc 139 H HDL Cholesterol 43 [place] 0.62 DS: Summary Hospital Course Hospital Course: Admission to adult psychiatry for exacerbation of bipolar disorder. He was stabilized, accepted meds while in hospital, howerver, pt, while on the unit, refused all treatment interventions, including referrals for out patient care, [facility] case management and out patient prescriptions. He also declined referrals to local shelters. He expressed anger that the team was not able to provide the housing option he wanted prior to discharge. Time spent discussing smoking cessation with patient: 3 to 10 minutes Status at Discharge Functional status at discharge: independent ambulation Overall status at discharge: patient is back to baseline Time Spent with Patient Time attestation: Total time managing care of this patient today ____ minutes. Time spent: Greater than 30 minutes Discharge Plan Discharge Anticipated Discharge Date/Time: 06/26/23 12:11 Patient Disposition: Xfer Other Discharge Diagnosis: Bipolar Disorder Type 1, with mixed features Referrals: [facility] [Other] (Walk in if needed ) Discharge Medications: New Vraylar 1.5 mg Capsule 1.5 mg PO DAILY Qty: 0 0RF melatonin 3 mg Tablet 12 mg PO BEDTIME Qty: 0 0RF lithium carbonate 450 mg Tablet Extended Release 900 mg PO BEDTIME Qty: 0 0RF omeprazole 20 mg Capsule,Delayed Release(Dr/Ec) 20 mg PO BID Qty: 0 0RF quetiapine 400 mg Tablet 800 mg PO BEDTIME Qty: 0 0RF Discharge Orders: Discharge Order (Routine); Ordered 06/26/23 Ordered By: Diane García Diet: Advance to usual diet Activity on Discharge: As tolerated Stand Alone Forms: Patient Portal Discharge page, Community Support Care Plan Goals: Mood and Behavioral Stabilization Health Concerns: Mood and Behavioral Stabilization Plan of Treatment: [facility] has refused all services, referrals and prescriptions. We encourage him to reconsider this choice Crisis Numbers [phone], [phone] Call and or return if needed Assessment: [facility] has refused all services, referrals and prescriptions. We have encouraged him to reconsider this choice. He has taken medicine while in hospital. [place] level is 0.62 on 06/25/23. There have been no overt side effects of medicines. [facility] has met with pt while on the unit. He has refused their offer of assistance in the community. He has refused a referral to a fci, refused prescriptions and refused to have out patient services scheduled to continue treatment. The above list of medications is reflective of what he was receiving in hospital. He reports depressive symptoms without psychosis, SI, HI. He is struggling with not having the housing options he wants vs what is currently available for access. Discharge Date/Time: 06/26/23 11:38
== END 2023-06-26 11:38 | disposition other institution (70) | DRG 885 ==
PROVIDERS: Psychiatry & Neurology Psychiatry; Admitting Provider Psychiatry & Neurology Psychiatry; Visit Provider Clinical Nurse Specialist Psychiatric/Mental Health, Adult
DX: F31.60 Bipolar disorder, current episode mixed, unspecified (principal); R45.851 Suicidal ideations; K21.9 Gastro-esophageal reflux disease without esophagitis; R51.9 Headache, unspecified; I10 Essential (primary) hypertension; F17.210 Nicotine dependence, cigarettes, uncomplicated; Z71.6 Tobacco abuse counseling; Z79.899 Other long term (current) drug therapy
CPT/HCPCS: 36415; 80053; 80061; 80178

== ENCOUNTER → 2023-06-19 17:06 | Outpatient (BNV) | payer OTHER, SELFPAY | PROVIDERS: Admitting Provider Psychiatry & Neurology Psychiatry; Visit Provider Student in an Organized Health Care Education/Training Program | DX: Z02.2 Encounter for examination for admission to residential institution (principal) | CPT/HCPCS: 99429 ==

== ENCOUNTER → 2023-06-19 17:06 | Outpatient (BNV) | payer OTHER, SELFPAY | PROVIDERS: Admitting Provider Psychiatry & Neurology Psychiatry; Visit Provider Psychiatry & Neurology Psychiatry | DX: F31.63 Bipolar disorder, current episode mixed, severe, without psychotic features (principal) | CPT/HCPCS: 99232 ==

== ENCOUNTER → 2023-06-19 17:06 | Outpatient (BNV) | payer OTHER, SELFPAY | PROVIDERS: Admitting Provider Psychiatry & Neurology Psychiatry; Visit Provider Psychiatry & Neurology Psychiatry | DX: F31.63 Bipolar disorder, current episode mixed, severe, without psychotic features (principal) | CPT/HCPCS: 90792; 99231; 99239 ==

== ENCOUNTER 2023-06-26 23:54 | Emergency (ER) | payer OTHER, SELFPAY ==
[2023-06-26 23:57] VITALS: BP 146/94; PULSE 116; RESP 18; TEMP 36.4; O2SAT 96; BMI 35.9
--- NOTE | 2023-06-27 00:17 | PC.NURSE ---
Patient self presented to ED for suicidal and homicidal ideation, patient was discharged from [facility] on 06/26/23, med rec completed/pending provider's approval, care consult ordered/pending evaluation, behavior non concerning, compliant with changeover process, will continue to monitor.
[2023-06-27 00:44] LABS: MANUAL DIFF FLAG NO
[2023-06-27 00:46] LABS: Basophils Absolute Auto 0.1 X10*3/uL (0.0-0.2); Basophils Percent Auto 0.8 % (0-2); Eosinophils Absolute Auto 0.1 X10*3/uL (0.0-0.4); Eosinophils Percent Auto 0.8 % (0-4); Hematocrit 41.6 % (42.0-52.0); Hemoglobin 14.6 g/dl (14.0-18.0); Imm Gran Abs Auto 0.05 X10*3/uL (0.00-0.03); Imm Gran Pct Auto 0.4 % (0.0-0.4); Lymphocytes Absolute Auto 3.1 X10*3/uL (1.2-4.9); Mean Corpuscular HGB Conc 35.1 g/dl (31.0-36.0); Mean Corpuscular Hemoglobin 30.5 pg (27.0-33.0); Mean Platelet Volume 8.7 fL (9.4-12.4); Monocytes Absolute Auto 0.8 X10*3/uL (0.1-1.2); Neutrophils Absolute Auto 7.2 x10*3/uL (2.0-8.3); Platelet Count 313 X10*3/uL (160-400); Red Blood Count 4.78 X10*6/uL (4.60-5.80); Red Cell Distribution Width 13.3 % (11.0-16.0); White Blood Count 11.3 X10*3/uL (4.8-10.8)
--- NOTE | 2023-06-27 00:51 | ED_ITS ---
HPI - General Adult General Chief complaint: Psychiatric Symptoms Stated complaint: Crisis Time Seen by Provider: 06/27/23 00:07 Source: patient, RN notes reviewed and old records reviewed Mode of arrival: ambulatory Limitations: language barrier History of Present Illness HPI narrative: 43-year-old male with past medical history significant for bipolar 1 with mixed features presents for evaluation of I need help. Patient was admitted 06/20/2023 to 06/26/2023, discharged yesterday for bipolar disorder ultimately the time of his discharge he declined all of his prescriptions, outpatient referrals and help with housing at the care home. Patient returns stating that he is suicidal and I just want to I just do not know how. He reports that prior to leaving he fell a little better because the social science instructor made me feel like maybe there was a point to living, but I do not think that is true anymore. He complains of some mild chronic back pain but no other somatic complaints Related Data Previous Rx's Medication Instructions Recorded cariprazine 1.5 mg capsule 1.5 mg PO DAILY #0 caps 06/26/23 (Vraylar) lithium carbonate 450 mg 900 mg (2 x 450 mg) PO BEDTIME #0 06/26/23 tablet,extended release tabs melatonin 3 mg tablet 12 mg (4 x 3 mg) PO BEDTIME #0 tabs 06/26/23 omeprazole 20 mg capsule,delayed 20 mg PO BID #0 caps 06/26/23 release quetiapine 400 mg tablet 800 mg (2 x 400 mg) PO BEDTIME #0 06/26/23 tabs Allergies Allergy/AdvReac Type Severity Reaction Status Date / Time No Known Allergies Allergy Verified 06/19/23 18:03 Review of Systems 2 Constitutional: Constitutional: Denies chills, Denies fever(s) and Reports headache(s) Eyes: Eyes: Denies blurry vision ENT: Reports headache(s) Cardiovascular: Cardiovascular: Denies chest pain and Denies dyspnea Respiratory: Respiratory: Denies cough and Denies dyspnea Gastrointestinal: Gastrointestinal: Denies abdominal pain, Denies nausea and Denies vomiting Musculoskeletal: Musculoskeletal: Reports back pain Neurologic: Reports headache(s) Psychiatric: Psychiatric: Reports depression and Reports suicidal ideation [facility] Past Medical History Medical History (Updated 06/27/23 @ 00:58 by Sebastian Irizarry) Bipolar I disorder with mixed features Social History Social History Household Members: None Housing: Homeless Housing Other:: Pt. was recently evicted per patient from a [facility] retirement in [place]. Do you presently have visiting nurse or other home services: No Unable to assess alcohol history related to: Unknown Patient Tobacco Use Status: Current everyday Tobacco user Tobacco use type: Cigarette Cigarette Packs Per Day: 0 Cigarettes Per Day: 2 e-Cigarette/Vaping Use: Former Use Second Hand Smoke Exposure: No Substance Use Type: Marijuana service: No Sexual orientation: Straight/Heterosexual Physical Exam ED Vital Signs: Vital Signs - 24 hr 06/26/23 23:57 Temperature 97.6 F Pulse Rate 116 H Respiratory Rate 18 Blood Pressure 146/94 H Pulse Oximetry 96 Oxygen Delivery Method Room Air BMI result Body Mass Index 35.9 Const General: healthy appearing, comfortable, no acute distress, alert and awake Nutritional Appearance: well nourished Orientation/consciousness: patient oriented x3 HENMT Head: Yes normocephalic and Yes atraumatic Eyes Eyelids: Yes eyelids normal Conjunctivae: conjunctivae normal Sclerae: sclerae normal Corneas: corneas normal Pupils: Equal, round and reactive pupils present EOM: EOMs intact bilaterally Neck Neck: Yes full ROM Resp Effort & Inspection: normal respiratory effort, able to speak in complete sentences and not labored GI Inspection: No distended Palpation (GI): Soft to palpation, not firm, nontender, no guarding and not rigid Skin General skin exam: elasticity normal Neuro General: patient oriented x3 Cranial nerves: Yes Equal, round and reactive pupils present and Yes Bilaterally intact EOM present Cognition (Neuro): normal cognition Extrem Other: Moving all extremities well without any obvious deformities Medical Decision Making Medical Decision Making MDM Narrative: 43-year-old male presents for evaluation of passive suicidal ideation. He was discharged from inpatient yesterday. He will be referred to the care team Differential Diagnosis Differential Diagnoses: The differential diagnosis associated with the presentation includes bipolar disorder Depression Suicidal ideation Medication noncompliance Lab Data 06/27/23 00:39 06/27/23 00:39 Labs: Lab Results 06/27/23 Range/Units 00:39 WBC 11.3 H (4.8-10.8) X10*3/uL RBC 4.78 (4.60-5.80) X10*6/uL Hgb 14.6 (14.0-18.0) g/dl Hct 41.6 L (42.0-52.0) % MCV 87.0 (80.0-98.0) fL MCH 30.5 (27.0-33.0) pg MCHC 35.1 (31.0-36.0) g/dl RDW 13.3 (11.0-16.0) % Plt Count 313 (160-400) X10*3/uL MPV 8.7 L (9.4-12.4) fL Immature Gran % (Auto) 0.4 (0.0-0.4) % Neut % (Auto) 64.0 (45-73) % Lymph % (Auto) 27.0 (20-40) % Douglas % (Auto) 7.0 (2-11) % Eos % (Auto) 0.8 (0-4) % Baso % (Auto) 0.8 (0-2) % Lymph # (Auto) 3.1 (1.2-4.9) X10*3/uL Douglas # (Auto) 0.8 (0.1-1.2) X10*3/uL Eos # (Auto) 0.1 (0.0-0.4) X10*3/uL Baso # (Auto) 0.1 (0.0-0.2) X10*3/uL Abs Immat Gran (auto) 0.05 H (0.00-0.03) X10*3/uL Absolute Neuts (auto) 7.2 (2.0-8.3) x10*3/uL Absolute Nucleated RBC 0.000 (0.0-0.012) X10*3/uL Nucleated RBC % (auto) 0.0 (0.0-0.2) /100WBC Discharge Plan Discharge Clinical Impression: Bipolar I disorder with mixed features, Suicidal ideation Prescriptions: No Action Vraylar 1.5 mg Capsule 1.5 mg PO DAILY Qty: 0 0RF melatonin 3 mg Tablet 12 mg PO BEDTIME Qty: 0 0RF lithium carbonate 450 mg Tablet Extended Release 900 mg PO BEDTIME Qty: 0 0RF omeprazole 20 mg Capsule,Delayed Release(Dr/Ec) 20 mg PO BID Qty: 0 0RF quetiapine 400 mg Tablet 800 mg PO BEDTIME Qty: 0 0RF Interventions: [place]-Suicide Risk Severity Scale Last Done: 06/27/23 00:20
[2023-06-27 00:57] LABS: Lithium 0.32 mmol/L (0.60-1.20)
[2023-06-27 01:00] LABS: COVID-19 Test Negative (Negative); IDNOW Serial# 6674DD1D
[2023-06-27 01:03] LABS: Alanine Aminotransferase 84 U/L (0-40); Albumin Level 4.6 g/dL (3.5-5.0); Alkaline Phosphatase 80 U/L (39-117); Anion Gap 16 (12-20); Aspartate Amino Transferase 34 U/L (5-37); Bilirubin Total 0.4 mg/dL (0.0-1.0); Blood Urea Nitrogen 12 mg/dL (9-16); Calcium 10.4 mg/dL (8.4-10.2); Carbon Dioxide 19 mmol/L (22-29); Chloride 106 mmol/L (96-108); Creatinine Clr Calc Pharmacy 115.5; Estimated Glomerular Filt Rate > 60; Ethanol < 10 mg/dL; Glucose Random 124 mg/dL (60-115); Potassium 3.7 mmol/L (3.3-5.1); Sodium 137 mmol/L (135-145); Total Protein 7.4 g/dL (6.5-8.0)
[2023-06-27 02:39] LABS: Appearance Urine Clear; Color Urine Yellow; Glucose Urine UA Negative (Negative); Leukocyte Esterase Urine Negative (Negative); Nitrite Urine Negative (Negative); PH 5.5 (5.0-9.0); Urine Blood Negative (Negative); Urine Ketones Negative (Negative); Urine Protein Negative (Neg-Trace)
[2023-06-27 02:47] LABS: Amphetamine Screen Urine Not Detected (Not Detect); Barbiturates, Urine Not Detected (Not Detect); Benzodiazepines Screen Urine Not Detected (Not Detect); Cannabinoid Screen Urine POSITIVE (Not Detect); Cocaine Screen Urine Not Detected (Not Detect); Fentanyl, urine Not Detected (Not Detect); Opiate Screen Urine Not Detected (Not Detect); Phencyclidine Screen Urine Not Detected (Not Detect)
--- NOTE | 2023-06-27 03:58 | PC.NURSE ---
Patient is currently in bed appears sleeping, no distress observed/reported, engaged well with care team, disposition is Respite Bed Search, med rec completed/approved, VSS, behavior non concerning, will continue to monitor.
[2023-06-27] MEDS: Omeprazole 20 MG CAPSULE.DR PO (08:31)
[2023-06-27] MEDS: Cariprazine HCl 1.5 MG CAPSULE PO (08:32)
--- NOTE | 2023-06-27 10:08 | MHC.CARE ---
patient in review with [facility] for [facility] LOC
--- NOTE | 2023-06-27 12:01 | MHC.CARE ---
patient declined from [facility] due to declining referrals offered, not participating. Lashanda ricks [facility] reports that he was there for a month. They will not consider himself a time.
--- NOTE | 2023-06-27 14:52 | MHC.CARE ---
Patient has been accepted to [facility] for 4pm. Patient is aware of this.
== END 2023-06-27 15:33 | disposition other institution (70) ==
PROVIDERS: Emergency Provider Internal Medicine
DX: F31.9 Bipolar disorder, unspecified (principal); R45.851 Suicidal ideations; G89.29 Other chronic pain; R51.9 Headache, unspecified; F17.210 Nicotine dependence, cigarettes, uncomplicated; F12.90 Cannabis use, unspecified, uncomplicated; Z79.899 Other long term (current) drug therapy; Z11.52 Encounter for screening for COVID-19
CPT/HCPCS: 36415; 80053; 80178; 80307; 81003; 85025; 87635; 99284; S9485

== ENCOUNTER 2024-07-29 18:47 | Inpatient (IN) | payer OTHER, SELFPAY ==
--- NOTE | 2024-07-29 19:13 | PC.NURSE ---
Pt arrived at 10
[2024-07-29 19:14] VITALS: BP 137/85; PULSE 93; RESP 18; TEMP 36.7; O2SAT 97
--- NOTE | 2024-07-29 19:15 | PC.NURSE ---
Pt arrived via EMT's at 1905 from [facility] to the unit on a CV. Pts VSS, pt is calm and cooperative. Pt enrique for safety and says he will seek out staff if that changes.
[2024-07-29] MEDS: QUEtiapine Fumarate 400 MG TABLET 800 MG PO (23:00)
[2024-07-29] MEDS: Lithium Carbonate 300 MG CAPSULE 600 MG PO (23:00)
[2024-07-29] MEDS: Lurasidone HCl 40 MG TABLET PO (23:00)
[2024-07-29 23:27] VITALS: BMI 38.3
--- NOTE | 2024-07-30 01:07 | PC.ADMIT ---
Pt is a 44 yo male admitted to unit via interhospital transfer [place] [facility]. Pt arrive on unit at 1905 on 07/29/2024. Legal status is CV. Pt medical issues are GERD, HTN, hyperlipidemia and obesity as well as enviromental allergies. Pt reports smoking 5 cigarettes a day for 20 years, not interested in quitting. Pt also refuses NRT and flu vaccine. Pt denies substance or alcohol use. States that he uses marijuana infrequently. Pt reports HI but not with anyone here . Precipitant to admission is having increasing thoughts of taking his own life d/t increasing depression. Pt denies having any family or close contacts. Pt states that he is homeless. According to crisis eval, pt plan is to walk into traffic with intent to kill self, reports apathy about whether he lives or dies. No outpatient providers and inconsistency taking his medications. Stated I am tired of being sad and depressed all the time. Pt presents as disheveled, sad, poor eye contact at times and dressed in hospital johnnies. Provider java application engineer EL was notified on admission and med rec done, orders obtained. Pt placed on 15 minute safety checks. Reports feeling safe in hospital.
[2024-07-30] MEDS: Omeprazole 20 MG CAPSULE.DR PO (06:25)
[2024-07-30 08:00] VITALS: BP 116/58; PULSE 78; TEMP 37.4; O2SAT 99
[2024-07-30 08:59] VITALS: BP 116/58; PULSE 78
[2024-07-30] MEDS: Metoprolol Succinate ER 25 MG TAB.ER.24H PO (08:59)
[2024-07-30] MEDS: Lithium Carbonate 300 MG CAPSULE 600 MG PO ×2 (09:00→21:20)
[2024-07-30] MEDS: Loratadine 10 MG TABLET PO (09:00)
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
--- NOTE | 2024-07-30 10:21 | P.CONHOSP_ITS ---
History of Present Illness Data of Consult Service Date: 07/30/24 Requesting physician: Rodrigue Edwards Primary Care Provider: None Physician HPI Reason for consult: medical consult Patient is a 44-year-old male with a past medical history significant for HTN, HLD, obesity and GERD, admitted to adult Psychiatry for mood disorder and homicidal ideation ( no one here ). He has no medical concerns today including chest pain, shortness of breath, numbness, tingling, or abdominal pain. Review of Systems 2 Constitutional: Constitutional: Denies chills, Denies fatigue, Denies fever(s) and Denies headache(s) Eyes: Eyes: Denies change in vision ENT: Denies headache(s), Denies nasal congestion, Denies nasal obstruction, Denies post nasal drip and Denies sore throat Cardiovascular: Cardiovascular: Denies chest pain, Denies rapid heart rate, Denies leg edema, Denies lightheadedness and Denies dyspnea Respiratory: Respiratory: Denies chest congestion, Denies cough, Denies dyspnea and Denies wheezing Gastrointestinal: Gastrointestinal: Denies constipation, Denies diarrhea, Denies nausea and Denies vomiting Genitourinary: Genitourinary: Denies dysuria and Denies urinary urgency Musculoskeletal: Musculoskeletal: Denies arthralgias and Denies muscle cramps Integumentary/Breasts: Skin/Breast: Denies rash Neurologic: Denies confusion and Denies headache(s) Psychiatric: Psychiatric: Reports as per HPI and Denies confusion Endocrine: Endocrine: Denies fatigue Hematologic/Lymphatic: Hematologic/Lymphatic: Denies easy bleeding and Denies easy bruising Allergic/Immunologic: Allergic/Immunologic: Denies wheezing [facility] Medical History (Updated 07/30/24 @ 10:33 by Qiana Gutierrez PA-C) Bipolar I disorder with mixed features Functional capacity: independent ambulation Social History Household Members: None Housing: Homeless Housing Other:: Pt. was recently evicted per patient from a [facility] custodial in [place]. Do you presently have visiting nurse or other home services: No Unable to assess alcohol history related to: Unknown Patient Tobacco Use Status: Current everyday Tobacco user Tobacco use type: Cigarette Cigarette Packs Per Day: 0 Cigarettes Per Day: 5 Years Smoked: 20 Smoked in Last 30 Days: Yes e-Cigarette/Vaping Use: Former Use Patient Interested in Nicotine Replacement: No Patient Given Instructions on How to Stop Smoking: No (not interested) Second Hand Smoke Exposure: No Use of substances other than those prescribed or required for medical reasons: No Substance Use Type: Marijuana Currently Displaying Signs/Symptoms of Drug Intoxication Withdrawal: No Any prior treatment program specific to substance use: No Have you been hit, kicked, punched, or otherwise hurt by someone within the past year? If so, by whom?: No Advance Directives: No Advance Directives Information Provided: No Do you have a plan to hurt others: No Plan Recently lost weight without trying: No How much weight loss: Not applicable Eating poorly because of decreased appetite: No Nutrition screen score: 0 Nutrition Risks: No Nutritional Risk service: No Sexual orientation: Straight/Heterosexual Meds Allergies Allergy/AdvReac Type Severity Reaction Status Date / Time No Known Allergies Allergy Verified 06/19/23 18:03 Active Medications: Current Medications Acetaminophen (Acetaminophen 325 Mg Tablet) 650 mg PO Q6H PRN PRN Reason: Headache/Pain Mild Scale (1-3) Al Hydroxide/Mg Hydroxide (Magnesium Hydrox/Alum Hydrox 30 Ml Oral.Susp) 30 ml PO Q6H PRN PRN Reason: Heartburn/Nausea Hydroxyzine HCl (Hydroxyzine Hcl 25 Mg Tablet) 25 mg PO Q6H PRN PRN Reason: Anxiety Edmonson Carbonate (Edmonson Carbonate 300 Mg Capsule) 600 mg PO BID [facility] Last Admin: 07/30/24 09:00 Dose: 600 mg Loratadine (Loratadine 10 Mg Tablet) 10 mg PO DAILY [facility] Last Admin: 07/30/24 09:00 Dose: 10 mg Lurasidone HCl (Lurasidone Hcl 40 Mg Tablet) 40 mg PO BEDTIME [facility] Last Admin: 07/29/24 23:00 Dose: 40 mg Magnesium Hydroxide (Milk Of Magnesia 30 Ml Oral.Susp) 30 ml PO DAILY PRN PRN Reason: Constipation Melatonin (Melatonin 3 Mg Tablet) 9 mg PO BEDTIME [facility] Last Admin: 07/30/24 01:35 Dose: Not Given Metoprolol Succinate (Metoprolol Succinate Er 25 Mg Tab.Er.24h) 25 mg PO DAILY [facility]; Protocol Last Admin: 07/30/24 08:59 Dose: 25 mg Nicotine (Nicotine 21 Mg Patch.Td24) 21 mg TRANSDERMA DAILY PRN PRN Reason: smoking cessation Nicotine Polacrilex (Nicotine Polacrilex 2 Mg Gum) 4 mg BUCCAL Q2H PRN PRN Reason: Nicotine Cravings Olanzapine (Olanzapine 5 Mg Tablet) 5 mg PO TID PRN PRN Reason: agitation Omeprazole (Omeprazole 20 Mg Capsule.Dr) 20 mg PO DAILY@0630 [facility] Last Admin: 07/30/24 06:25 Dose: 20 mg Quetiapine Fumarate (Quetiapine Fumarate 400 Mg Tablet) 800 mg PO BEDTIME [facility] Last Admin: 07/29/24 23:00 Dose: 800 mg Trazodone HCl (Trazodone Hcl 50 Mg Tablet) 50 mg PO BEDTIME MRX1 PRN PRN Reason: Insomnia Home Medications ?Medication ?Instructions ?Recorded ?Confirmed ?Last Taken ?Type lithium carbonate 600 mg capsule 600 mg PO BID 07/29/24 07/29/24 07/29/24 11:00 History loratadine 10 mg tablet 10 mg PO DAILY 07/29/24 07/29/24 Unknown History lurasidone 40 mg tablet 40 mg PO BEDTIME 07/29/24 07/29/24 07/27/24 History metoprolol succinate 25 mg 25 mg PO DAILY 07/29/24 07/29/24 07/29/24 11:00 History tablet,extended release 24 hr pantoprazole 20 mg tablet,delayed 20 mg PO BID 07/29/24 07/29/24 07/29/24 11:00 History release Physical Exam 2 Vital Signs and Narrative: Vital Signs: Last Vital Signs Temp 99.3 F 07/30/24 08:00 Pulse 78 07/30/24 08:59 Resp 18 07/29/24 19:14 BP 116/58 L 07/30/24 08:59 Pulse Ox 99 07/30/24 08:00 O2 Del Method Room Air 07/30/24 08:00 BMI result Body Mass Index 38.3 General: AOx3, no acute distress Resp: CTA bilaterally CVS: S1, S2, RRR GI: +BS, NT, no distention Skin: Warm, dry Neuro: Cranial nerves II-XII grossly intact bilaterally. Motor grossly intact bilaterally. 5/5 strength bilateral upper and lower extremities. normal gait. Extremities: No edema Psych: Appropriate affect Const: General: No confusion Orientation/consciousness: No confusion Neuro: General: No confusion Results Labs 07/30/24 09:16 Assessment and Plan (1) Medical clearance for psychiatric admission: Status: Acute Plan Patient is a 44-year-old male with a past medical history significant for HTN, HLD, obesity and GERD, admitted to adult Psychiatry for mood disorder and homicidal ideation ( no one here ). No medical concerns today. mood disorder - plan per psych HTN -- good control - continue metoprolol HLD - no meds obesity - encourage healthy diet and frequent walking on the unit GERD - continue omeprazole Thank you for allowing me to participate in the pt's care. Signing off for now. Please contact the medical team if any questions or concerns.
[2024-07-30 10:37] LABS: Alanine Aminotransferase 81 U/L (0-40); Albumin Level 3.9 g/dL (3.5-5.0); Alkaline Phosphatase 59 U/L (39-117); Anion Gap 11 (12-20); Aspartate Amino Transferase 38 U/L (5-37); Bilirubin Total 0.4 mg/dL (0.0-1.0); Blood Urea Nitrogen 13 mg/dL (9-16); Calcium 9.8 mg/dL (8.4-10.2); Carbon Dioxide 25 mmol/L (22-29); Chloride 107 mmol/L (96-108); Cholesterol 192 mg/dL (<200); Creatinine Clr Calc Pharmacy 147.5; Estimated Glomerular Filt Rate > 60; Glucose Fasting 102 mg/dL (60-99); HDL Cholesterol 34 mg/dL (>40); LDL Cholesterol Calculated 126 mg/dL (<100); Sodium 139 mmol/L (135-145); Total Protein 6.2 g/dL (6.5-8.0); Triglycerides 160 mg/dL (<150)
[2024-07-30 10:38] LABS: Estimated Average Glucose 108 mg/dL; Hemoglobin A1C 126.6987 umol/L; Hemoglobin A1c % 5.4 % (<6.0); Total Hemoglobin (HGBA1C) 3605.3206 umol/L
[2024-07-30 10:54] LABS: TSH reflex Free T4 0.16 uIU/mL (0.32-4.0)
[2024-07-30 11:31] LABS: Free T4 (Free Thyroxine) 1.01 ng/dL (0.71-1.85)
[2024-07-30 20:00] VITALS: BP 136/87; PULSE 81; RESP 16; TEMP 36.6; O2SAT 96
[2024-07-30] MEDS: Lurasidone HCl 40 MG TABLET PO (21:20)
[2024-07-30] MEDS: QUEtiapine Fumarate 400 MG TABLET 800 MG PO (21:21)
[2024-07-30] MEDS: Melatonin 3 MG TABLET 12 MG PO (21:21)
[2024-07-30] MEDS: Acetaminophen 325 MG TABLET 650 MG PO (21:29)
[2024-07-31] MEDS: Loratadine 10 MG TABLET PO (08:52)
[2024-07-31] MEDS: Omeprazole 20 MG CAPSULE.DR PO (08:52)
[2024-07-31 09:50] VITALS: BP 123/59; PULSE 86; RESP 18; TEMP 36.8; O2SAT 97
[2024-07-31 09:53] VITALS: BP 123/59; PULSE 86
[2024-07-31] MEDS: Metoprolol Succinate ER 25 MG TAB.ER.24H PO (09:53)
[2024-07-31] MEDS: Lithium Carbonate 300 MG CAPSULE 600 MG PO ×2 (09:54→21:58)
[2024-07-31 19:51] VITALS: BP 115/80; PULSE 106; RESP 16; TEMP 36.7; O2SAT 96
--- NOTE | 2024-07-31 20:13 | HO.PSYCHPN ---
Subjective Subjective Date of Service: 07/31/24 Reason For Visit: unspecified bipolar disorder Interim History: feeling depressed. discuss adding wellbutrin to regimen. r/b discussed, pt agrees. per staff, not attending groups. passive SI. slept 8 hours. taking meds. Mental Status Exam Mental Status Exam Narrative: adequately dressed and groomed, cooperative, somewhat slow and hang-dog. mild PMR. no PMA. speech flattened prosody, nml amount, mildly slowed, decr loudness. thoughts linear and logical. affect blunted. mood depressed. no SI/HI/AVH expressed. Diagnostics Vital Signs (24Hr): Vital Signs - 24 hr 07/31/24 09:50 07/31/24 09:53 Temperature 98.2 F Pulse Rate 86 86 Respiratory Rate 18 Blood Pressure 123/59 L 123/59 L Pulse Oximetry 97 Oxygen Delivery Method Room Air BMI result Body Mass Index 38.3 Labs 07/30/24 09:16 Labs: Laboratory Results - last 48 hr 07/30/24 09:16 Sodium 139 Potassium 4.0 Chloride 107 Carbon Dioxide 25 Anion Gap 11 L BUN 13 Creatinine 0.89 Estim Creat Clear Calc 147.5 Estimated GFR > 60 Fasting Glucose 102 H Estimat Average Glucose 108 Hemoglobin A1c % 5.4 Calcium 9.8 Total Bilirubin 0.4 AST 38 H ALT 81 H Alkaline Phosphatase 59 Total Protein 6.2 L Albumin 3.9 Triglycerides 160 H Cholesterol 192 LDL Cholesterol, Calc 126 H HDL Cholesterol 34 L TSH 0.16 L Free T4 1.01 Medications Medications Current Medications Acetaminophen (Acetaminophen 325 Mg Tablet) 650 mg PO Q6H PRN PRN Reason: Headache/Pain Mild Scale (1-3) Last Admin: 07/30/24 21:29 Dose: 650 mg Al Hydroxide/Mg Hydroxide (Magnesium Hydrox/Alum Hydrox 30 Ml Oral.Susp) 30 ml PO Q6H PRN PRN Reason: Heartburn/Nausea Bupropion HCl (Bupropion Hcl Xl 150 Mg Tab.Er.24h) 150 mg PO DAILY [facility] Hydroxyzine HCl (Hydroxyzine Hcl 25 Mg Tablet) 25 mg PO Q6H PRN PRN Reason: Anxiety [place] Carbonate ([place] Carbonate 300 Mg Capsule) 600 mg PO BID [facility] Last Admin: 07/31/24 09:54 Dose: 600 mg Loratadine (Loratadine 10 Mg Tablet) 10 mg PO DAILY [facility] Last Admin: 07/31/24 08:52 Dose: 10 mg Lurasidone HCl (Lurasidone Hcl 40 Mg Tablet) 40 mg PO BEDTIME [facility] Last Admin: 07/30/24 21:20 Dose: 40 mg Magnesium Hydroxide (Milk Of Magnesia 30 Ml Oral.Susp) 30 ml PO DAILY PRN PRN Reason: Constipation Melatonin (Melatonin 3 Mg Tablet) 12 mg PO BEDTIME [facility] Last Admin: 07/30/24 21:21 Dose: 12 mg Metoprolol Succinate (Metoprolol Succinate Er 25 Mg Tab.Er.24h) 25 mg PO DAILY [facility]; Protocol Last Admin: 07/31/24 09:53 Dose: 25 mg Nicotine Polacrilex (Nicotine Polacrilex 2 Mg Gum) 4 mg BUCCAL Q2H PRN PRN Reason: Nicotine Cravings Olanzapine (Olanzapine 5 Mg Tablet) 5 mg PO TID PRN PRN Reason: agitation Omeprazole (Omeprazole 20 Mg Capsule.Dr) 20 mg PO DAILY@0630 [facility] Last Admin: 07/31/24 08:52 Dose: 20 mg Quetiapine Fumarate (Quetiapine Fumarate 400 Mg Tablet) 800 mg PO BEDTIME [facility] Last Admin: 07/30/24 21:21 Dose: 800 mg Trazodone HCl (Trazodone Hcl 50 Mg Tablet) 50 mg PO BEDTIME MRX1 PRN PRN Reason: Insomnia Allergies Allergies Allergy/AdvReac Type Severity Reaction Status Date / Time No Known Allergies Allergy Verified 06/19/23 18:03 Assessment & Plan Assessment & Plan (1) Unspecified mood [affective] disorder: Status: Acute Code(s): F39 - Unspecified mood [affective] disorder Plan 07/30: restart/continue outpt meds. T/C adding wellbutrin. 07/31: depressed. add wellbutrin 150 daily. Reason for continued inpatient stay Substantial Risk for: harm to self and inability to function Time Spent With Patient Time: Total time managing care of this patient today ____ minutes.
[2024-07-31] MEDS: Lurasidone HCl 40 MG TABLET PO (21:58)
[2024-07-31] MEDS: QUEtiapine Fumarate 400 MG TABLET 800 MG PO (21:58)
[2024-07-31] MEDS: Melatonin 3 MG TABLET 12 MG PO (21:58)
[2024-08-01 09:00] VITALS: BP 118/72; PULSE 76; RESP 18; TEMP 37; O2SAT 95
[2024-08-01] MEDS: Loratadine 10 MG TABLET PO (09:17)
[2024-08-01] MEDS: Lithium Carbonate 300 MG CAPSULE 600 MG PO ×2 (09:17→22:33)
[2024-08-01] MEDS: Omeprazole 20 MG CAPSULE.DR PO (09:18)
[2024-08-01] MEDS: buPROPion HCl XL 150 MG TAB.ER.24H PO (09:18)
[2024-08-01] MEDS: Metoprolol Succinate ER 25 MG TAB.ER.24H PO (09:21)
--- NOTE | 2024-08-01 17:34 | HO.PSYCHPN ---
Subjective Subjective Date of Service: 08/01/24 Reason For Visit: unspecified bipolar disorder Interim History: reading. no issues presently. started wellbutrin this morning. may have something to do with feeling he could focus to read today. per staff, vague, guarded. +SI. no plan or intent. pacing the kennedy with headphones. Mental Status Exam Mental Status Exam Narrative: adequately dressed and groomed, cooperative, somewhat slow. less hang-dog. mild PMR. no PMA. speech flattened prosody, nml amount, mildly slowed, nml loudness. thoughts linear and logical. affect blunted. mood depressed. no SI/HI/AVH expressed. Diagnostics Vital Signs (24Hr): Vital Signs - 24 hr 07/31/24 19:51 08/01/24 09:00 Temperature 98.0 F 98.6 F Pulse Rate 106 H 76 Respiratory Rate 16 18 Blood Pressure 115/80 118/72 Pulse Oximetry 96 95 Oxygen Delivery Method Room Air Room Air BMI result Body Mass Index 38.3 Labs 07/30/24 09:16 Medications Medications Current Medications Acetaminophen (Acetaminophen 325 Mg Tablet) 650 mg PO Q6H PRN PRN Reason: Headache/Pain Mild Scale (1-3) Last Admin: 07/30/24 21:29 Dose: 650 mg Al Hydroxide/Mg Hydroxide (Magnesium Hydrox/Alum Hydrox 30 Ml Oral.Susp) 30 ml PO Q6H PRN PRN Reason: Heartburn/Nausea Bupropion HCl (Bupropion Hcl Xl 150 Mg Tab.Er.24h) 150 mg PO DAILY [facility] Last Admin: 08/01/24 09:18 Dose: 150 mg Hydroxyzine HCl (Hydroxyzine Hcl 25 Mg Tablet) 25 mg PO Q6H PRN PRN Reason: Anxiety [place] Carbonate ([place] Carbonate 300 Mg Capsule) 600 mg PO BID [facility] Last Admin: 08/01/24 09:17 Dose: 600 mg Loratadine (Loratadine 10 Mg Tablet) 10 mg PO DAILY [facility] Last Admin: 08/01/24 09:17 Dose: 10 mg Lurasidone HCl (Lurasidone Hcl 40 Mg Tablet) 40 mg PO BEDTIME [facility] Last Admin: 07/31/24 21:58 Dose: 40 mg Magnesium Hydroxide (Milk Of Magnesia 30 Ml Oral.Susp) 30 ml PO DAILY PRN PRN Reason: Constipation Melatonin (Melatonin 3 Mg Tablet) 12 mg PO BEDTIME [facility] Last Admin: 07/31/24 21:58 Dose: 12 mg Metoprolol Succinate (Metoprolol Succinate Er 25 Mg Tab.Er.24h) 25 mg PO DAILY [facility]; Protocol Last Admin: 08/01/24 09:21 Dose: 25 mg Nicotine Polacrilex (Nicotine Polacrilex 2 Mg Gum) 4 mg BUCCAL Q2H PRN PRN Reason: Nicotine Cravings Olanzapine (Olanzapine 5 Mg Tablet) 5 mg PO TID PRN PRN Reason: agitation Omeprazole (Omeprazole 20 Mg Capsule.Dr) 20 mg PO DAILY@0630 [facility] Last Admin: 08/01/24 09:18 Dose: 20 mg Quetiapine Fumarate (Quetiapine Fumarate 400 Mg Tablet) 800 mg PO BEDTIME [facility] Last Admin: 07/31/24 21:58 Dose: 800 mg Trazodone HCl (Trazodone Hcl 50 Mg Tablet) 50 mg PO BEDTIME MRX1 PRN PRN Reason: Insomnia Allergies Allergies Allergy/AdvReac Type Severity Reaction Status Date / Time No Known Allergies Allergy Verified 06/19/23 18:03 Assessment & Plan Assessment & Plan (1) Unspecified mood [affective] disorder: Status: Acute Code(s): F39 - Unspecified mood [affective] disorder Plan 07/30: restart/continue outpt meds. T/C adding wellbutrin. 07/31: depressed. add wellbutrin 150 daily. 08/01: started wellbutrin, reading today, which is new. continue current mgmt. still depressed. Reason for continued inpatient stay Substantial Risk for: harm to self, inability to function and rapid decompensation Time Spent With Patient Time: Total time managing care of this patient today ____ minutes.
[2024-08-01 20:00] VITALS: BP 128/77; PULSE 90; RESP 17; TEMP 37.1; O2SAT 94
[2024-08-01] MEDS: QUEtiapine Fumarate 400 MG TABLET 800 MG PO (22:27)
[2024-08-01] MEDS: Lurasidone HCl 40 MG TABLET PO (22:27)
[2024-08-01] MEDS: Melatonin 3 MG TABLET 12 MG PO (22:27)
--- NOTE | 2024-08-02 06:16 | PC.NURSE ---
prilosec-requested not to be woken up for AM prilosec.
[2024-08-02 08:00] VITALS: BP 106/60; PULSE 73; RESP 18
[2024-08-02] MEDS: Lithium Carbonate 300 MG CAPSULE 600 MG PO ×2 (08:19→21:04)
[2024-08-02] MEDS: buPROPion HCl XL 150 MG TAB.ER.24H PO (08:19)
[2024-08-02] MEDS: Loratadine 10 MG TABLET PO (08:19)
[2024-08-02] MEDS: Omeprazole 20 MG CAPSULE.DR PO (08:19)
[2024-08-02] MEDS: Metoprolol Succinate ER 25 MG TAB.ER.24H PO (08:19)
--- NOTE | 2024-08-02 15:37 | P.PNPSI_ITS ---
Subjective Subjective Date of Service: 08/02/24 Reason For Visit: unspecified bipolar disorder Interim History: cracks a smile saying he got to watch cartoons last night. says he's been watching the simpsons since the 1980s. agreeable to increase wellbutrin on . no complaints or requests currently. per staff, isolative. +SI, no intent or plan expressed. + meds. safe on unit. slept 7 hours. underlying irritability. Mental Status Exam Mental Status Exam Narrative: adequately dressed and groomed, cooperative, somewhat slow. mild PMR. no PMA. speech flattened prosody, nml amount, mildly slowed, nml loudness. thoughts linear and logical. affect flexible. mood not assessed. no SI/HI/AVH expressed. Diagnostics Vital Signs (24Hr): Vital Signs - 24 hr 08/01/24 20:00 08/02/24 08:00 Temperature 98.7 F Pulse Rate 90 73 Respiratory Rate 17 18 Blood Pressure 128/77 106/60 Pulse Oximetry 94 Oxygen Delivery Method Room Air BMI result Body Mass Index 38.3 Labs 07/30/24 09:16 Medications Medications Current Medications Acetaminophen (Acetaminophen 325 Mg Tablet) 650 mg PO Q6H PRN PRN Reason: Headache/Pain Mild Scale (1-3) Last Admin: 07/30/24 21:29 Dose: 650 mg Al Hydroxide/Mg Hydroxide (Magnesium Hydrox/Alum Hydrox 30 Ml Oral.Susp) 30 ml PO Q6H PRN PRN Reason: Heartburn/Nausea Bupropion HCl (Bupropion Hcl Xl 150 Mg Tab.Er.24h) 150 mg PO DAILY [facility] Stop: 08/03/24 09:01 Last Admin: 08/02/24 08:19 Dose: 150 mg Bupropion HCl (Bupropion Hcl Xl 300 Mg Tab.Er.24h) 300 mg PO DAILY [facility] Hydroxyzine HCl (Hydroxyzine Hcl 25 Mg Tablet) 25 mg PO Q6H PRN PRN Reason: Anxiety [place] Carbonate ([place] Carbonate 300 Mg Capsule) 600 mg PO BID [facility] Last Admin: 08/02/24 08:19 Dose: 600 mg Loratadine (Loratadine 10 Mg Tablet) 10 mg PO DAILY [facility] Last Admin: 08/02/24 08:19 Dose: 10 mg Lurasidone HCl (Lurasidone Hcl 40 Mg Tablet) 40 mg PO BEDTIME [facility] Last Admin: 08/01/24 22:27 Dose: 40 mg Magnesium Hydroxide (Milk Of Magnesia 30 Ml Oral.Susp) 30 ml PO DAILY PRN PRN Reason: Constipation Melatonin (Melatonin 3 Mg Tablet) 12 mg PO BEDTIME [facility] Last Admin: 08/01/24 22:27 Dose: 12 mg Metoprolol Succinate (Metoprolol Succinate Er 25 Mg Tab.Er.24h) 25 mg PO DAILY [facility]; Protocol Last Admin: 08/02/24 08:19 Dose: 25 mg Nicotine Polacrilex (Nicotine Polacrilex 2 Mg Gum) 4 mg BUCCAL Q2H PRN PRN Reason: Nicotine Cravings Olanzapine (Olanzapine 5 Mg Tablet) 5 mg PO TID PRN PRN Reason: agitation Omeprazole (Omeprazole 20 Mg Capsule.Dr) 20 mg PO DAILY@0630 [facility] Last Admin: 08/02/24 08:19 Dose: 20 mg Quetiapine Fumarate (Quetiapine Fumarate 400 Mg Tablet) 800 mg PO BEDTIME [facility] Last Admin: 08/01/24 22:27 Dose: 800 mg Trazodone HCl (Trazodone Hcl 50 Mg Tablet) 50 mg PO BEDTIME MRX1 PRN PRN Reason: Insomnia Allergies Allergies Allergy/AdvReac Type Severity Reaction Status Date / Time No Known Allergies Allergy Verified 06/19/23 18:03 Assessment & Plan Assessment & Plan (1) Unspecified mood [affective] disorder: Status: Acute Code(s): F39 - Unspecified mood [affective] disorder Plan 07/30: restart/continue outpt meds. T/C adding wellbutrin. 07/31: depressed. add wellbutrin 150 daily. 08/01: started wellbutrin, reading today, which is new. continue current mgmt. still depressed. 08/02: smiles today talking about cartoons, the simpsons. increase wellbutrin Weds. Reason for continued inpatient stay Substantial Risk for: harm to self, inability to function and rapid decompensation Time Spent With Patient Time: Total time managing care of this patient today _25___ minutes.
[2024-08-02 19:52] VITALS: BP 141/89; PULSE 96; RESP 18; TEMP 36.3; O2SAT 96
[2024-08-02] MEDS: Melatonin 3 MG TABLET 12 MG PO (21:04)
[2024-08-02] MEDS: QUEtiapine Fumarate 400 MG TABLET 800 MG PO (21:04)
[2024-08-02] MEDS: Lurasidone HCl 40 MG TABLET PO (21:05)
[2024-08-03 07:49] VITALS: RESP 18
[2024-08-03 09:07] VITALS: BP 124/74; PULSE 77; RESP 18; TEMP 36.9; O2SAT 96
[2024-08-03] MEDS: Loratadine 10 MG TABLET PO (09:09)
[2024-08-03] MEDS: buPROPion HCl XL 150 MG TAB.ER.24H PO (09:09)
[2024-08-03] MEDS: Omeprazole 20 MG CAPSULE.DR PO (09:09)
[2024-08-03] MEDS: Metoprolol Succinate ER 25 MG TAB.ER.24H PO (09:09)
[2024-08-03] MEDS: Lithium Carbonate 300 MG CAPSULE 600 MG PO ×2 (09:09→21:24)
--- NOTE | 2024-08-03 10:28 | HO.PSYCHPN ---
Subjective Subjective Date of Service: 08/03/24 Reason For Visit: unspecified bipolar disorder Subjective Notes: Conditional Voluntary Interim History: Keeping to self. Guarded. Pt reports he always feels depressed ; but would not go into detail. He reports suicidal and homicidal ideation; pt stated, I'm not telling you who I want to hurt . difficult to engage. denies AH/VH. Per nursing slept 8 hours. Medication Compliance: Yes Side effects from medications: No Attending Groups: No Review of Systems Constitutional: Reports as per HPI Eyes: Reports as per HPI Reports as per HPI Cardiovascular: Reports as per HPI Respiratory: Reports as per HPI Gastrointestinal: Reports as per HPI Genitourinary: Reports as per HPI Musculoskeletal: Reports as per HPI Skin/Breast: Reports as per HPI Reports as per HPI Psychiatric: Reports as per HPI Endocrine: Reports as per HPI Hematologic/Lymphatic: Reports as per HPI Allergic/Immunologic: Reports as per HPI Mental Status Exam Mental Status Exam Narrative: Pt is alert and oriented; behavior is guarded; dressed in casual attire; mood is described as depressed ; eye contact appropriate; Speech is normal rate, volume and not pressured; thought process is organized; difficult to engage; denies AH/VH. He reports suicidal and homicidal ideation but will not disclose details. Diagnostics Vital Signs (24Hr): Vital Signs - 24 hr 08/02/24 19:52 08/03/24 07:49 08/03/24 09:07 Temperature 97.4 F 98.4 F Pulse Rate 96 77 Respiratory Rate 18 18 18 Blood Pressure 141/89 H 124/74 Pulse Oximetry 96 96 Oxygen Delivery Method Room Air Room Air BMI result Body Mass Index 38.3 Labs 07/30/24 09:16 Medications Medications Current Medications Acetaminophen (Acetaminophen 325 Mg Tablet) 650 mg PO Q6H PRN PRN Reason: Headache/Pain Mild Scale (1-3) Last Admin: 07/30/24 21:29 Dose: 650 mg Al Hydroxide/Mg Hydroxide (Magnesium Hydrox/Alum Hydrox 30 Ml Oral.Susp) 30 ml PO Q6H PRN PRN Reason: Heartburn/Nausea Bupropion HCl (Bupropion Hcl Xl 300 Mg Tab.Er.24h) 300 mg PO DAILY [facility] Hydroxyzine HCl (Hydroxyzine Hcl 25 Mg Tablet) 25 mg PO Q6H PRN PRN Reason: Anxiety [place] Carbonate ([place] Carbonate 300 Mg Capsule) 600 mg PO BID [facility] Last Admin: 08/03/24 09:09 Dose: 600 mg Loratadine (Loratadine 10 Mg Tablet) 10 mg PO DAILY [facility] Last Admin: 08/03/24 09:09 Dose: 10 mg Lurasidone HCl (Lurasidone Hcl 40 Mg Tablet) 40 mg PO BEDTIME [facility] Last Admin: 08/02/24 21:05 Dose: 40 mg Magnesium Hydroxide (Milk Of Magnesia 30 Ml Oral.Susp) 30 ml PO DAILY PRN PRN Reason: Constipation Melatonin (Melatonin 3 Mg Tablet) 12 mg PO BEDTIME [facility] Last Admin: 08/02/24 21:04 Dose: 12 mg Metoprolol Succinate (Metoprolol Succinate Er 25 Mg Tab.Er.24h) 25 mg PO DAILY [facility]; Protocol Last Admin: 08/03/24 09:09 Dose: 25 mg Nicotine Polacrilex (Nicotine Polacrilex 2 Mg Gum) 4 mg BUCCAL Q2H PRN PRN Reason: Nicotine Cravings Olanzapine (Olanzapine 5 Mg Tablet) 5 mg PO TID PRN PRN Reason: agitation Omeprazole (Omeprazole 20 Mg Capsule.Dr) 20 mg PO DAILY@0630 [facility] Last Admin: 08/03/24 09:09 Dose: 20 mg Quetiapine Fumarate (Quetiapine Fumarate 400 Mg Tablet) 800 mg PO BEDTIME [facility] Last Admin: 08/02/24 21:04 Dose: 800 mg Trazodone HCl (Trazodone Hcl 50 Mg Tablet) 50 mg PO BEDTIME MRX1 PRN PRN Reason: Insomnia Allergies Allergies Allergy/AdvReac Type Severity Reaction Status Date / Time No Known Allergies Allergy Verified 06/19/23 18:03 Assessment & Plan Assessment & Plan (1) Unspecified mood [affective] disorder: Status: Acute Code(s): F39 - Unspecified mood [affective] disorder Plan 07/30: restart/continue outpt meds. T/C adding wellbutrin. 07/31: depressed. add wellbutrin 150 daily. 08/01: started wellbutrin, reading today, which is new. continue current mgmt. still depressed. 08/02: smiles today talking about cartoons, the simpsons. increase wellbutrin Weds. 08/03: Keeping to self. Guarded. Pt reports he always feels depressed ; but would not go into detail. He reports suicidal and homicidal ideation; pt stated, I'm not telling you who I want to hurt . difficult to engage. denies AH/VH. Per nursing slept 8 hours. Continue current tx plan. Patient educated on: diagnosis and medication risk/benefits Reason for continued inpatient stay Substantial Risk for: harm to self, harm to others and med/psych decompensation Time Spent With Patient Time: Total time managing care of this patient today _20___ minutes.
[2024-08-03] MEDS: Acetaminophen 325 MG TABLET 650 MG PO (19:40)
[2024-08-03 20:00] VITALS: BP 119/79; PULSE 78; RESP 16; TEMP 36.7; O2SAT 96
[2024-08-03] MEDS: Melatonin 3 MG TABLET 12 MG PO (21:24)
[2024-08-03] MEDS: Lurasidone HCl 40 MG TABLET PO (21:25)
[2024-08-03] MEDS: QUEtiapine Fumarate 400 MG TABLET 800 MG PO (21:25)
[2024-08-04 08:00] VITALS: BP 129/71; PULSE 67; RESP 18; TEMP 37.1; O2SAT 96
[2024-08-04] MEDS: buPROPion HCl XL 300 MG TAB.ER.24H PO (09:46)
[2024-08-04] MEDS: Lithium Carbonate 300 MG CAPSULE 600 MG PO ×2 (09:46→21:18)
[2024-08-04] MEDS: Loratadine 10 MG TABLET PO (09:46)
[2024-08-04] MEDS: Omeprazole 20 MG CAPSULE.DR PO (09:46)
[2024-08-04 09:47] VITALS: BP 129/71; PULSE 67
[2024-08-04] MEDS: Metoprolol Succinate ER 25 MG TAB.ER.24H PO (09:47)
--- NOTE | 2024-08-04 14:45 | P.PNPSI_ITS ---
Subjective Subjective Date of Service: 08/04/24 Reason For Visit: unspecified bipolar disorder Subjective Notes: Conditional Voluntary Interim History: Guarded. Not attending groups. Pt reports feeling depressed ; pt stated, my mind is going places it shouldn't . He reports suicidal ideation; pt stated, the thoughts come and go. They come when I'm not busy . Continues to report homicidal ideation but will not give any information; pt stated, I know you guys are mandated reporters so I'm not saying anything . difficult to engage. denies AH/VH. Medication Compliance: Yes Side effects from medications: No Attending Groups: No Review of Systems Constitutional: Reports as per HPI Eyes: Reports as per HPI Reports as per HPI Cardiovascular: Reports as per HPI Respiratory: Reports as per HPI Gastrointestinal: Reports as per HPI Genitourinary: Reports as per HPI Musculoskeletal: Reports as per HPI Skin/Breast: Reports as per HPI Reports as per HPI Psychiatric: Reports as per HPI Endocrine: Reports as per HPI Hematologic/Lymphatic: Reports as per HPI Allergic/Immunologic: Reports as per HPI Mental Status Exam Mental Status Exam Narrative: Pt is alert and oriented; behavior is guarded; dressed in casual attire; mood is described as depressed ; eye contact appropriate; Speech is normal rate, volume and not pressured; thought process is organized; difficult to engage; denies AH/VH. He reports suicidal and homicidal ideation but will not disclose details. Diagnostics Vital Signs (24Hr): Vital Signs - 24 hr 08/03/24 20:00 08/04/24 08:00 08/04/24 09:47 Temperature 98.1 F 98.8 F Pulse Rate 78 67 67 Respiratory Rate 16 18 Blood Pressure 119/79 129/71 129/71 Pulse Oximetry 96 96 Oxygen Delivery Method Room Air Room Air BMI result Body Mass Index 38.3 Labs 07/30/24 09:16 Medications Medications Current Medications Acetaminophen (Acetaminophen 325 Mg Tablet) 650 mg PO Q6H PRN PRN Reason: Headache/Pain Mild Scale (1-3) Last Admin: 08/03/24 19:40 Dose: 650 mg Al Hydroxide/Mg Hydroxide (Magnesium Hydrox/Alum Hydrox 30 Ml Oral.Susp) 30 ml PO Q6H PRN PRN Reason: Heartburn/Nausea Bupropion HCl (Bupropion Hcl Xl 300 Mg Tab.Er.24h) 300 mg PO DAILY [facility] Last Admin: 08/04/24 09:46 Dose: 300 mg Hydroxyzine HCl (Hydroxyzine Hcl 25 Mg Tablet) 25 mg PO Q6H PRN PRN Reason: Anxiety [place] Carbonate ([place] Carbonate 300 Mg Capsule) 600 mg PO BID [facility] Last Admin: 08/04/24 09:46 Dose: 600 mg Loratadine (Loratadine 10 Mg Tablet) 10 mg PO DAILY [facility] Last Admin: 08/04/24 09:46 Dose: 10 mg Lurasidone HCl (Lurasidone Hcl 40 Mg Tablet) 40 mg PO BEDTIME [facility] Last Admin: 08/03/24 21:25 Dose: 40 mg Magnesium Hydroxide (Milk Of Magnesia 30 Ml Oral.Susp) 30 ml PO DAILY PRN PRN Reason: Constipation Melatonin (Melatonin 3 Mg Tablet) 12 mg PO BEDTIME [facility] Last Admin: 08/03/24 21:24 Dose: 12 mg Metoprolol Succinate (Metoprolol Succinate Er 25 Mg Tab.Er.24h) 25 mg PO DAILY [facility]; Protocol Last Admin: 08/04/24 09:47 Dose: 25 mg Nicotine Polacrilex (Nicotine Polacrilex 2 Mg Gum) 4 mg BUCCAL Q2H PRN PRN Reason: Nicotine Cravings Olanzapine (Olanzapine 5 Mg Tablet) 5 mg PO TID PRN PRN Reason: agitation Omeprazole (Omeprazole 20 Mg Capsule.Dr) 20 mg PO DAILY@0630 [facility] Last Admin: 08/04/24 09:46 Dose: 20 mg Quetiapine Fumarate (Quetiapine Fumarate 400 Mg Tablet) 800 mg PO BEDTIME [facility] Last Admin: 08/03/24 21:25 Dose: 800 mg Trazodone HCl (Trazodone Hcl 50 Mg Tablet) 50 mg PO BEDTIME MRX1 PRN PRN Reason: Insomnia Allergies Allergies Allergy/AdvReac Type Severity Reaction Status Date / Time No Known Allergies Allergy Verified 06/19/23 18:03 Assessment & Plan Assessment & Plan (1) Unspecified mood [affective] disorder: Status: Acute Code(s): F39 - Unspecified mood [affective] disorder Plan 07/30: restart/continue outpt meds. T/C adding wellbutrin. 07/31: depressed. add wellbutrin 150 daily. 08/01: started wellbutrin, reading today, which is new. continue current mgmt. still depressed. 08/02: smiles today talking about cartoons, the simpsons. increase wellbutrin Weds. 08/03: Keeping to self. Guarded. Pt reports he always feels depressed ; but would not go into detail. He reports suicidal and homicidal ideation; pt stated, I'm not telling you who I want to hurt . difficult to engage. denies AH/VH. Per nursing slept 8 hours. Continue current tx plan. 08/04: continue current tx plan. difficult to engage. very guarded. +SI/HI Patient educated on: medication risk/benefits Reason for continued inpatient stay Substantial Risk for: med/psych decompensation Time Spent With Patient Time: Total time managing care of this patient today _20___ minutes.
[2024-08-04 20:00] VITALS: BP 147/88; PULSE 79; RESP 16; TEMP 37; O2SAT 96
[2024-08-04] MEDS: QUEtiapine Fumarate 400 MG TABLET 800 MG PO (21:18)
[2024-08-04] MEDS: Lurasidone HCl 40 MG TABLET PO (21:19)
[2024-08-04] MEDS: Melatonin 3 MG TABLET 12 MG PO (21:19)
[2024-08-05 07:00] VITALS: BMI 38.4
--- NOTE | 2024-08-05 08:03 | P.PNPSI_ITS ---
Subjective Subjective Date of Service: 08/05/24 Reason For Visit: unspecified bipolar disorder Subjective Notes: Conditional Voluntary Interim History: Guarded. difficult to engage. Sleeping most of morning. When asked how he is feeling today; pt stated, I'm not feeling anything . denies any issues at this time. Medication Compliance: Yes Attending Groups: No Review of Systems Constitutional: Reports as per HPI Eyes: Reports as per HPI Reports as per HPI Cardiovascular: Reports as per HPI Respiratory: Reports as per HPI Gastrointestinal: Reports as per HPI Genitourinary: Reports as per HPI Musculoskeletal: Reports as per HPI Skin/Breast: Reports as per HPI Reports as per HPI Psychiatric: Reports as per HPI Endocrine: Reports as per HPI Hematologic/Lymphatic: Reports as per HPI Allergic/Immunologic: Reports as per HPI Mental Status Exam Mental Status Exam Narrative: Pt is alert and oriented; behavior is guarded; dressed in casual attire; eye contact appropriate; Speech is normal rate, volume and not pressured; thought process is organized; difficult to engage. Diagnostics Vital Signs (24Hr): Vital Signs - 24 hr 08/04/24 09:47 08/04/24 20:00 Temperature 98.6 F Pulse Rate 67 79 Respiratory Rate 16 Blood Pressure 129/71 147/88 H Pulse Oximetry 96 Oxygen Delivery Method Room Air BMI result Body Mass Index 38.3 Labs 07/30/24 09:16 Medications Medications Current Medications Acetaminophen (Acetaminophen 325 Mg Tablet) 650 mg PO Q6H PRN PRN Reason: Headache/Pain Mild Scale (1-3) Last Admin: 08/03/24 19:40 Dose: 650 mg Al Hydroxide/Mg Hydroxide (Magnesium Hydrox/Alum Hydrox 30 Ml Oral.Susp) 30 ml PO Q6H PRN PRN Reason: Heartburn/Nausea Bupropion HCl (Bupropion Hcl Xl 300 Mg Tab.Er.24h) 300 mg PO DAILY [facility] Last Admin: 08/04/24 09:46 Dose: 300 mg Hydroxyzine HCl (Hydroxyzine Hcl 25 Mg Tablet) 25 mg PO Q6H PRN PRN Reason: Anxiety [place] Carbonate ([place] Carbonate 300 Mg Capsule) 600 mg PO BID [facility] Last Admin: 08/04/24 21:18 Dose: 600 mg Loratadine (Loratadine 10 Mg Tablet) 10 mg PO DAILY [facility] Last Admin: 08/04/24 09:46 Dose: 10 mg Lurasidone HCl (Lurasidone Hcl 40 Mg Tablet) 40 mg PO BEDTIME [facility] Last Admin: 08/04/24 21:19 Dose: 40 mg Magnesium Hydroxide (Milk Of Magnesia 30 Ml Oral.Susp) 30 ml PO DAILY PRN PRN Reason: Constipation Melatonin (Melatonin 3 Mg Tablet) 12 mg PO BEDTIME [facility] Last Admin: 08/04/24 21:19 Dose: 12 mg Metoprolol Succinate (Metoprolol Succinate Er 25 Mg Tab.Er.24h) 25 mg PO DAILY [facility]; Protocol Last Admin: 08/04/24 09:47 Dose: 25 mg Nicotine Polacrilex (Nicotine Polacrilex 2 Mg Gum) 4 mg BUCCAL Q2H PRN PRN Reason: Nicotine Cravings Olanzapine (Olanzapine 5 Mg Tablet) 5 mg PO TID PRN PRN Reason: agitation Omeprazole (Omeprazole 20 Mg Capsule.Dr) 20 mg PO DAILY@0630 [facility] Last Admin: 08/04/24 09:46 Dose: 20 mg Quetiapine Fumarate (Quetiapine Fumarate 400 Mg Tablet) 800 mg PO BEDTIME [facility] Last Admin: 08/04/24 21:18 Dose: 800 mg Trazodone HCl (Trazodone Hcl 50 Mg Tablet) 50 mg PO BEDTIME MRX1 PRN PRN Reason: Insomnia Allergies Allergies Allergy/AdvReac Type Severity Reaction Status Date / Time No Known Allergies Allergy Verified 06/19/23 18:03 Assessment & Plan Assessment & Plan (1) Unspecified mood [affective] disorder: Status: Acute Code(s): F39 - Unspecified mood [affective] disorder Plan 07/30: restart/continue outpt meds. T/C adding wellbutrin. 07/31: depressed. add wellbutrin 150 daily. 08/01: started wellbutrin, reading today, which is new. continue current mgmt. still depressed. 08/02: smiles today talking about cartoons, the simpsons. increase wellbutrin Weds. 08/03: Keeping to self. Guarded. Pt reports he always feels depressed ; but would not go into detail. He reports suicidal and homicidal ideation; pt stated, I'm not telling you who I want to hurt . difficult to engage. denies AH/VH. Per nursing slept 8 hours. Continue current tx plan. 08/04: continue current tx plan. difficult to engage. very guarded. +SI/HI 08/05: continue current tx plan. continues guarded. Reason for continued inpatient stay Substantial Risk for: harm to self, harm to others and med/psych decompensation Time Spent With Patient Time: Total time managing care of this patient today _10___ minutes.
[2024-08-05 08:34] VITALS: BP 108/55; PULSE 71; RESP 16; TEMP 37.4; O2SAT 94
[2024-08-05] MEDS: Loratadine 10 MG TABLET PO (08:36)
[2024-08-05] MEDS: Metoprolol Succinate ER 25 MG TAB.ER.24H PO (08:36)
[2024-08-05] MEDS: Lithium Carbonate 300 MG CAPSULE 600 MG PO ×2 (08:36→20:36)
[2024-08-05] MEDS: buPROPion HCl XL 300 MG TAB.ER.24H PO (08:37)
[2024-08-05] MEDS: Omeprazole 20 MG CAPSULE.DR PO (08:37)
[2024-08-05] MEDS: Acetaminophen 325 MG TABLET 650 MG PO (19:14)
[2024-08-05 20:00] VITALS: BP 122/84; PULSE 78; RESP 18; TEMP 36.8; O2SAT 97
[2024-08-05] MEDS: Lurasidone HCl 40 MG TABLET PO (20:36)
[2024-08-05] MEDS: Melatonin 3 MG TABLET 12 MG PO (20:36)
[2024-08-05] MEDS: QUEtiapine Fumarate 400 MG TABLET 800 MG PO (20:36)
[2024-08-06 09:32] VITALS: BP 124/84
[2024-08-06] MEDS: buPROPion HCl XL 300 MG TAB.ER.24H PO (09:32)
[2024-08-06] MEDS: Metoprolol Succinate ER 25 MG TAB.ER.24H PO (09:32)
[2024-08-06] MEDS: Omeprazole 20 MG CAPSULE.DR PO (09:32)
[2024-08-06] MEDS: Lithium Carbonate 300 MG CAPSULE 600 MG PO ×2 (09:32→21:12)
[2024-08-06] MEDS: Loratadine 10 MG TABLET PO (09:33)
--- NOTE | 2024-08-06 11:48 | P.PNPSI_ITS ---
Subjective Subjective Date of Service: 08/06/24 Reason For Visit: unspecified bipolar disorder Subjective Notes: Conditional Voluntary Interim History: The patient has been flat depressed hopeless helpless seem motivational has been cooperative with treatment. A few months ago he had had ECT at [facility] with unclear benefit. Appeared to have responded initially to unilateral and had confusion with bilateral treatment. The patient has been started on Latuda and lithium. He has had [facility] in the past Mental Status Exam Mental Status Exam Narrative: Mental Status Exam Narrative: Appearance: Patient casually dressed somewhat disheveled sad looking Behavior: Cooperative good eye contact psychomotor: Within normal limits Speech: Normal volume and prosody Thought proccess logical goal-directed Thought content: Patient hopeless helpless a motivational thoughts he would be better off Mood: Described as depressed Affect: Constricted SI: Denies in this setting HI:denies VH/AH:none Delusions: Insight/judgment: Memory/cog: Diagnostics Vital Signs (24Hr): Vital Signs - 24 hr 08/05/24 20:00 08/06/24 09:32 Temperature 98.3 F Pulse Rate 78 Respiratory Rate 18 Blood Pressure 122/84 124/84 Pulse Oximetry 97 Oxygen Delivery Method Room Air BMI result Body Mass Index 38.4 Labs 07/30/24 09:16 Medications Medications Current Medications Acetaminophen (Acetaminophen 325 Mg Tablet) 650 mg PO Q6H PRN PRN Reason: Headache/Pain Mild Scale (1-3) Last Admin: 08/05/24 19:14 Dose: 650 mg Al Hydroxide/Mg Hydroxide (Magnesium Hydrox/Alum Hydrox 30 Ml Oral.Susp) 30 ml PO Q6H PRN PRN Reason: Heartburn/Nausea Bupropion HCl (Bupropion Hcl Xl 300 Mg Tab.Er.24h) 300 mg PO DAILY [facility] Last Admin: 08/06/24 09:32 Dose: 300 mg Hydroxyzine HCl (Hydroxyzine Hcl 25 Mg Tablet) 25 mg PO Q6H PRN PRN Reason: Anxiety [place] Carbonate ([place] Carbonate 300 Mg Capsule) 600 mg PO BID [facility] Last Admin: 08/06/24 09:32 Dose: 600 mg Loratadine (Loratadine 10 Mg Tablet) 10 mg PO DAILY [facility] Last Admin: 08/06/24 09:33 Dose: 10 mg Lurasidone HCl (Lurasidone Hcl 40 Mg Tablet) 40 mg PO BEDTIME [facility] Last Admin: 08/05/24 20:36 Dose: 40 mg Magnesium Hydroxide (Milk Of Magnesia 30 Ml Oral.Susp) 30 ml PO DAILY PRN PRN Reason: Constipation Melatonin (Melatonin 3 Mg Tablet) 12 mg PO BEDTIME [facility] Last Admin: 08/05/24 20:36 Dose: 12 mg Metoprolol Succinate (Metoprolol Succinate Er 25 Mg Tab.Er.24h) 25 mg PO DAILY [facility]; Protocol Last Admin: 08/06/24 09:32 Dose: 25 mg Nicotine Polacrilex (Nicotine Polacrilex 2 Mg Gum) 4 mg BUCCAL Q2H PRN PRN Reason: Nicotine Cravings Olanzapine (Olanzapine 5 Mg Tablet) 5 mg PO TID PRN PRN Reason: agitation Omeprazole (Omeprazole 20 Mg Capsule.Dr) 20 mg PO DAILY@0630 [facility] Last Admin: 08/06/24 09:32 Dose: 20 mg Quetiapine Fumarate (Quetiapine Fumarate 400 Mg Tablet) 800 mg PO BEDTIME [facility] Last Admin: 08/05/24 20:36 Dose: 800 mg Trazodone HCl (Trazodone Hcl 50 Mg Tablet) 50 mg PO BEDTIME MRX1 PRN PRN Reason: Insomnia Allergies Allergies Allergy/AdvReac Type Severity Reaction Status Date / Time No Known Allergies Allergy Verified 06/19/23 18:03 Assessment & Plan Assessment & Plan (1) Unspecified mood [affective] disorder: Status: Acute Code(s): F39 - Unspecified mood [affective] disorder Plan 07/30: restart/continue outpt meds. T/C adding wellbutrin. 07/31: depressed. add wellbutrin 150 daily. 08/01: started wellbutrin, reading today, which is new. continue current mgmt. still depressed. 08/02: smiles today talking about cartoons, the simpsons. increase wellbutrin Weds. 08/03: Keeping to self. Guarded. Pt reports he always feels depressed ; but would not go into detail. He reports suicidal and homicidal ideation; pt stated, I'm not telling you who I want to hurt . difficult to engage. denies AH/VH. Per nursing slept 8 hours. Continue current tx plan. 08/04: continue current tx plan. difficult to engage. very guarded. +SI/HI 08/05: continue current tx plan. continues guarded. 08/06/2024 Increase Latuda 60 mg consider Vraylar consider ECT try and get discharge summary from [facility]. Patient has been part of [facility] in the past. Patient will discuss with social work. Patient limited support system hopeless helpless a motivational remains risk of self-harm Patient educated on: diagnosis, medication risk/benefits and ECT Informed Consent: further education needed Reason for continued inpatient stay Substantial Risk for: harm to self and rapid decompensation Time Spent With Patient Time: Total time managing care of this patient today ____ minutes.
[2024-08-06] MEDS: Lurasidone HCl 20 MG TABLET 60 MG PO (13:49)
[2024-08-06 20:00] VITALS: BP 135/79; PULSE 81; RESP 18; TEMP 36.6; O2SAT 96
[2024-08-06] MEDS: QUEtiapine Fumarate 400 MG TABLET 800 MG PO (21:15)
[2024-08-06] MEDS: Melatonin 3 MG TABLET 12 MG PO (21:15)
--- NOTE | 2024-08-07 09:00 | P.PNPSI_ITS ---
Subjective Subjective Date of Service: 08/07/24 Reason For Visit: unspecified bipolar disorder Subjective Notes: Conditional Voluntary Interim History: Keeping to self, pacing unit hallway. guarded. reports feeling depressed not anxious ; pt stated, I don't want to talk about it. I just go to bed wishing I wouldn't wake up . medication compliant. Medication Compliance: Yes Side effects from medications: No Attending Groups: No Review of Systems Constitutional: Reports as per HPI Eyes: Reports as per HPI Reports as per HPI Cardiovascular: Reports as per HPI Respiratory: Reports as per HPI Gastrointestinal: Reports as per HPI Genitourinary: Reports as per HPI Musculoskeletal: Reports as per HPI Skin/Breast: Reports as per HPI Reports as per HPI Psychiatric: Reports as per HPI Endocrine: Reports as per HPI Hematologic/Lymphatic: Reports as per HPI Allergic/Immunologic: Reports as per HPI Mental Status Exam Mental Status Exam Patient Appearance: Appropriate Patient Orientation: Person, Place, Time and Situation Level of Consciousness: Awake and Alert Patient Behavior: Guarded and Good Eye Contact Mood Description: Depressed Affect Description: Blunted Ability to Follow Directions: Good Speech Pattern: Clear Memory Description: Intact Hallucinations: None Delusions: Not Present Thought Process: Intact Thought Content: positive for Intact Diagnostics Vital Signs (24Hr): Vital Signs - 24 hr 08/06/24 09:32 08/06/24 20:00 Temperature 97.9 F Pulse Rate 81 Respiratory Rate 18 Blood Pressure 124/84 135/79 Pulse Oximetry 96 Oxygen Delivery Method Room Air BMI result Body Mass Index 38.4 Labs 07/30/24 09:16 Medications Medications Current Medications Acetaminophen (Acetaminophen 325 Mg Tablet) 650 mg PO Q6H PRN PRN Reason: Headache/Pain Mild Scale (1-3) Last Admin: 08/05/24 19:14 Dose: 650 mg Al Hydroxide/Mg Hydroxide (Magnesium Hydrox/Alum Hydrox 30 Ml Oral.Susp) 30 ml PO Q6H PRN PRN Reason: Heartburn/Nausea Bupropion HCl (Bupropion Hcl Xl 300 Mg Tab.Er.24h) 300 mg PO DAILY [facility] Last Admin: 08/06/24 09:32 Dose: 300 mg Hydroxyzine HCl (Hydroxyzine Hcl 25 Mg Tablet) 25 mg PO Q6H PRN PRN Reason: Anxiety [place] Carbonate ([place] Carbonate 300 Mg Capsule) 600 mg PO BID [facility] Last Admin: 08/06/24 21:12 Dose: 600 mg Loratadine (Loratadine 10 Mg Tablet) 10 mg PO DAILY [facility] Last Admin: 08/06/24 09:33 Dose: 10 mg Lurasidone HCl (Lurasidone Hcl 20 Mg Tablet) 60 mg PO DAILY@1230 [facility] Last Admin: 08/06/24 13:49 Dose: 60 mg Magnesium Hydroxide (Milk Of Magnesia 30 Ml Oral.Susp) 30 ml PO DAILY PRN PRN Reason: Constipation Melatonin (Melatonin 3 Mg Tablet) 12 mg PO BEDTIME [facility] Last Admin: 08/06/24 21:15 Dose: 12 mg Metoprolol Succinate (Metoprolol Succinate Er 25 Mg Tab.Er.24h) 25 mg PO DAILY [facility]; Protocol Last Admin: 08/06/24 09:32 Dose: 25 mg Nicotine Polacrilex (Nicotine Polacrilex 2 Mg Gum) 4 mg BUCCAL Q2H PRN PRN Reason: Nicotine Cravings Olanzapine (Olanzapine 5 Mg Tablet) 5 mg PO TID PRN PRN Reason: agitation Omeprazole (Omeprazole 20 Mg Capsule.Dr) 20 mg PO DAILY@0630 [facility] Last Admin: 08/06/24 09:32 Dose: 20 mg Quetiapine Fumarate (Quetiapine Fumarate 400 Mg Tablet) 800 mg PO BEDTIME [facility] Last Admin: 08/06/24 21:15 Dose: 800 mg Trazodone HCl (Trazodone Hcl 50 Mg Tablet) 50 mg PO BEDTIME MRX1 PRN PRN Reason: Insomnia Allergies Allergies Allergy/AdvReac Type Severity Reaction Status Date / Time No Known Allergies Allergy Verified 06/19/23 18:03 Assessment & Plan Assessment & Plan (1) Unspecified mood [affective] disorder: Status: Acute Code(s): F39 - Unspecified mood [affective] disorder Plan 07/30: restart/continue outpt meds. T/C adding wellbutrin. 07/31: depressed. add wellbutrin 150 daily. 08/01: started wellbutrin, reading today, which is new. continue current mgmt. still depressed. 08/02: smiles today talking about cartoons, the simpsons. increase wellbutrin Weds. 08/03: Keeping to self. Guarded. Pt reports he always feels depressed ; but would not go into detail. He reports suicidal and homicidal ideation; pt stated, I'm not telling you who I want to hurt . difficult to engage. denies AH/VH. Per nursing slept 8 hours. Continue current tx plan. 08/04: continue current tx plan. difficult to engage. very guarded. +SI/HI 08/05: continue current tx plan. continues guarded. 08/06/2024 Increase Latuda 60 mg consider Vraylar consider ECT try and get discharge summary from [facility]. Patient has been part of [facility] in the past. Patient will discuss with social work. Patient limited support system hopeless helpless a motivational remains risk of self-harm 08/07: continue tx plan. Patient educated on: medication risk/benefits Reason for continued inpatient stay Substantial Risk for: harm to self, harm to others and med/psych decompensation Time Spent With Patient Time: Total time managing care of this patient today _20___ minutes.
[2024-08-07] MEDS: buPROPion HCl XL 300 MG TAB.ER.24H PO (09:02)
[2024-08-07] MEDS: Omeprazole 20 MG CAPSULE.DR PO (09:02)
[2024-08-07] MEDS: Lithium Carbonate 300 MG CAPSULE 600 MG PO ×2 (09:02→20:45)
[2024-08-07] MEDS: Loratadine 10 MG TABLET PO (09:03)
[2024-08-07 09:16] VITALS: BP 118/66; PULSE 69
[2024-08-07] MEDS: Metoprolol Succinate ER 25 MG TAB.ER.24H PO (09:16)
[2024-08-07] MEDS: Lurasidone HCl 20 MG TABLET 60 MG PO (12:37)
[2024-08-07] MEDS: Acetaminophen 325 MG TABLET 650 MG PO (13:43)
[2024-08-07 20:00] VITALS: BP 128/84; PULSE 80; RESP 18; TEMP 36.9; O2SAT 96
[2024-08-07] MEDS: QUEtiapine Fumarate 400 MG TABLET 800 MG PO (20:43)
[2024-08-07] MEDS: Melatonin 3 MG TABLET 12 MG PO (20:44)
[2024-08-08 07:50] VITALS: BP 121/61; PULSE 73; RESP 14; TEMP 37.9; O2SAT 95
[2024-08-08] MEDS: Omeprazole 20 MG CAPSULE.DR PO (08:40)
[2024-08-08] MEDS: Lithium Carbonate 300 MG CAPSULE 600 MG PO ×2 (08:40→21:22)
[2024-08-08 08:41] VITALS: BP 113/64; PULSE 68
[2024-08-08] MEDS: buPROPion HCl XL 300 MG TAB.ER.24H PO (08:41)
[2024-08-08] MEDS: Metoprolol Succinate ER 25 MG TAB.ER.24H PO (08:41)
[2024-08-08] MEDS: Loratadine 10 MG TABLET PO (08:41)
[2024-08-08 08:54] LABS: Lithium 0.52 mmol/L (0.60-1.20)
[2024-08-08 09:01] LABS: Alanine Aminotransferase 93 U/L (0-40); Albumin Level 3.9 g/dL (3.5-5.0); Alkaline Phosphatase 62 U/L (39-117); Aspartate Amino Transferase 43 U/L (5-37); Bilirubin Direct 0.1 mg/dL (0.0-0.5); Bilirubin Total 0.3 mg/dL (0.0-1.0); Total Protein 6.1 g/dL (6.5-8.0)
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
[2024-08-08] MEDS: Acetaminophen 325 MG TABLET 650 MG PO (13:08)
[2024-08-08] MEDS: Lurasidone HCl 20 MG TABLET 60 MG PO (13:26)
[2024-08-08] MEDS: QUEtiapine Fumarate 400 MG TABLET 800 MG PO (21:23)
[2024-08-08] MEDS: Melatonin 3 MG TABLET 12 MG PO (21:23)
[2024-08-09 04:03] LABS: HBc Num1 0.11 S/CO (0.00-0.79); HBsAGNum1 1.57 S/CO (0.00-0.99); Hepatitis A Antibody IgM 0.27 Index (0-0.79); Hepatitis B Core Antibody Nonreactive (Nonreactive); ~HepC Num1 0.12 S/CO (0.00-0.79); ~Hepatitis A Antibody IgM Nonreactive (Nonreactive); ~Hepatitis B Surface Antibody NONREACTIVE (Nonreactive); ~Hepatitis C Antibody Nonreactive (Nonreactive)
[2024-08-09 05:28] LABS: HBsAGNum2 Nonreactive; HBsAGNum3 Nonreactive; Hepatitis B Surface Antigen NEGATIVE (Negative)
[2024-08-09 08:00] VITALS: BP 109/61; PULSE 75; TEMP 37.3; O2SAT 95
[2024-08-09 08:58] VITALS: BP 109/61; PULSE 75
[2024-08-09] MEDS: Omeprazole 20 MG CAPSULE.DR PO (08:58)
[2024-08-09] MEDS: Metoprolol Succinate ER 25 MG TAB.ER.24H PO (08:58)
[2024-08-09] MEDS: Loratadine 10 MG TABLET PO (08:59)
[2024-08-09] MEDS: Lithium Carbonate 300 MG CAPSULE 600 MG PO ×2 (08:59→21:24)
[2024-08-09] MEDS: buPROPion HCl XL 300 MG TAB.ER.24H PO (08:59)
[2024-08-09] MEDS: Lurasidone HCl 20 MG TABLET 60 MG PO (12:50)
--- NOTE | 2024-08-09 16:36 | P.PNPSI_ITS ---
Subjective Subjective Date of Service: 08/09/24 Reason For Visit: unspecified bipolar disorder Interim History: expressing some MNA. agrees to decrease wellbutrin and see if it makes a difference. otherwise feeling improved. discuss stuart discharge plan. depression 7 now instead of an 8. staying busy, fewer negative thoughts. sleeping 4-5 hours. per staff, depression. +SI. +meds. more engaging with improved affect. intermittent SI, no intent or plan while here. Mental Status Exam Mental Status Exam Narrative: adequately dressed and groomed, cooperative, somewhat slow. mild PMR. no PMA. speech flattened prosody, nml amount, mildly slowed, nml loudness. thoughts linear and logical. affect flexible. improved mood. no SI/HI/AVH expressed. Diagnostics Vital Signs (24Hr): Vital Signs - 24 hr 08/09/24 08:00 08/09/24 08:58 Temperature 99.1 F Pulse Rate 75 75 Blood Pressure 109/61 109/61 Pulse Oximetry 95 Oxygen Delivery Method Room Air BMI result Body Mass Index 38.4 Labs 07/30/24 09:16 Labs: Laboratory Results - last 48 hr 08/08/24 08:35 Total Bilirubin 0.3 Direct Bilirubin 0.1 AST 43 H ALT 93 H Alkaline Phosphatase 62 Total Protein 6.1 L Albumin 3.9 [place] 0.52 L Hepatitis A IgM Ab Nonreactive Hep Bs Antigen Not Reportable Hep Bs Antigen (2) NEGATIVE Hep Bs Antibody NONREACTIVE Hep B Core Total Ab Nonreactive Hepatitis C Ab (EIA) Nonreactive Medications Medications Current Medications Acetaminophen (Acetaminophen 325 Mg Tablet) 650 mg PO Q6H PRN PRN Reason: Headache/Pain Mild Scale (1-3) Last Admin: 08/08/24 13:08 Dose: 650 mg Al Hydroxide/Mg Hydroxide (Magnesium Hydrox/Alum Hydrox 30 Ml Oral.Susp) 30 ml PO Q6H PRN PRN Reason: Heartburn/Nausea Bupropion HCl (Bupropion Hcl Xl 150 Mg Tab.Er.24h) 150 mg PO DAILY [facility] Hydroxyzine HCl (Hydroxyzine Hcl 25 Mg Tablet) 25 mg PO Q6H PRN PRN Reason: Anxiety [place] Carbonate ([place] Carbonate 300 Mg Capsule) 600 mg PO BID [facility] Last Admin: 08/09/24 08:59 Dose: 600 mg Loratadine (Loratadine 10 Mg Tablet) 10 mg PO DAILY [facility] Last Admin: 08/09/24 08:59 Dose: 10 mg Lurasidone HCl (Lurasidone Hcl 20 Mg Tablet) 60 mg PO DAILY@1230 [facility] Last Admin: 08/09/24 12:50 Dose: 60 mg Magnesium Hydroxide (Milk Of Magnesia 30 Ml Oral.Susp) 30 ml PO DAILY PRN PRN Reason: Constipation Melatonin (Melatonin 3 Mg Tablet) 12 mg PO BEDTIME [facility] Last Admin: 08/08/24 21:23 Dose: 12 mg Metoprolol Succinate (Metoprolol Succinate Er 25 Mg Tab.Er.24h) 25 mg PO DAILY [facility]; Protocol Last Admin: 08/09/24 08:58 Dose: 25 mg Nicotine Polacrilex (Nicotine Polacrilex 2 Mg Gum) 4 mg BUCCAL Q2H PRN PRN Reason: Nicotine Cravings Olanzapine (Olanzapine 5 Mg Tablet) 5 mg PO TID PRN PRN Reason: agitation Omeprazole (Omeprazole 20 Mg Capsule.Dr) 20 mg PO DAILY@0630 [facility] Last Admin: 08/09/24 08:58 Dose: 20 mg Quetiapine Fumarate (Quetiapine Fumarate 400 Mg Tablet) 800 mg PO BEDTIME [facility] Last Admin: 08/08/24 21:23 Dose: 800 mg Trazodone HCl (Trazodone Hcl 50 Mg Tablet) 50 mg PO BEDTIME MRX1 PRN PRN Reason: Insomnia Allergies Allergies Allergy/AdvReac Type Severity Reaction Status Date / Time No Known Allergies Allergy Verified 06/19/23 18:03 Assessment & Plan Assessment & Plan (1) Unspecified mood [affective] disorder: Status: Acute Code(s): F39 - Unspecified mood [affective] disorder Plan 07/30: restart/continue outpt meds. T/C adding wellbutrin. 07/31: depressed. add wellbutrin 150 daily. 08/01: started wellbutrin, reading today, which is new. continue current mgmt. still depressed. 08/02: smiles today talking about cartoons, the simpsons. increase wellbutrin Weds. 08/03: Keeping to self. Guarded. Pt reports he always feels depressed ; but would not go into detail. He reports suicidal and homicidal ideation; pt stated, I'm not telling you who I want to hurt . difficult to engage. denies AH/VH. Per nursing slept 8 hours. Continue current tx plan. 08/04: continue current tx plan. difficult to engage. very guarded. +SI/HI 08/05: continue current tx plan. continues guarded. 08/06/2024 Increase Latuda 60 mg consider Vraylar consider ECT try and get discharge summary from [facility]. Patient has been part of [facility] in the past. Patient will discuss with social work. Patient limited support system hopeless helpless a motivational remains risk of self-harm 08/07: continue tx plan. 08/08: continue current tx plan. 08/09: decrease wellbutrin back to 150 mg daily due to uptick in insomnia. planning for discharge. depression improved from an 8 to a 7. fewer negative thoughts. Reason for continued inpatient stay Substantial Risk for: harm to self and inability to function Time Spent With Patient Time: Total time managing care of this patient today __25__ minutes.
[2024-08-09 19:45] VITALS: BP 133/92; PULSE 75; TEMP 36.8; O2SAT 95
[2024-08-09] MEDS: Melatonin 3 MG TABLET 12 MG PO (21:24)
[2024-08-09] MEDS: QUEtiapine Fumarate 400 MG TABLET 800 MG PO (21:24)
[2024-08-10 09:30] VITALS: BP 125/83; PULSE 70; RESP 14
[2024-08-10] MEDS: Omeprazole 20 MG CAPSULE.DR PO (09:32)
[2024-08-10] MEDS: Metoprolol Succinate ER 25 MG TAB.ER.24H PO (09:32)
[2024-08-10] MEDS: Loratadine 10 MG TABLET PO (09:32)
[2024-08-10] MEDS: buPROPion HCl XL 150 MG TAB.ER.24H PO (09:33)
[2024-08-10] MEDS: Lithium Carbonate 300 MG CAPSULE 600 MG PO ×2 (09:33→21:33)
[2024-08-10] MEDS: Lurasidone HCl 20 MG TABLET 60 MG PO (13:11)
--- NOTE | 2024-08-10 18:13 | P.PNPSI_ITS ---
Subjective Subjective Date of Service: 08/10/24 Reason For Visit: unspecified bipolar disorder Interim History: even as a kid i didn't have any goals. reading in sensory room. no change in presentation. per staff, withdrawn. taking meds. irritable. c/o poor sleep. dep 7, no anx. +SI, safe on unit. slept 8 hours. Mental Status Exam Mental Status Exam Narrative: adequately dressed and groomed, cooperative, somewhat slow. mild PMR. no PMA. speech flattened prosody, nml amount, mildly slowed, nml loudness. thoughts linear and logical. affect flexible. improved mood. no SI/HI/AVH expressed. Diagnostics Vital Signs (24Hr): Vital Signs - 24 hr 08/09/24 19:45 08/10/24 09:30 Temperature 98.3 F Pulse Rate 75 70 Respiratory Rate 14 Blood Pressure 133/92 H 125/83 Pulse Oximetry 95 Oxygen Delivery Method Room Air BMI result Body Mass Index 38.4 Labs 07/30/24 09:16 Labs: Laboratory Results - last 48 hr 08/08/24 08:35 Total Bilirubin 0.3 Direct Bilirubin 0.1 AST 43 H ALT 93 H Alkaline Phosphatase 62 Total Protein 6.1 L Albumin 3.9 Hepatitis A IgM Ab Nonreactive Hep Bs Antigen Not Reportable Hep Bs Antigen (2) NEGATIVE Hep Bs Antibody NONREACTIVE Hep B Core Total Ab Nonreactive Hepatitis C Ab (EIA) Nonreactive Medications Medications Current Medications Acetaminophen (Acetaminophen 325 Mg Tablet) 650 mg PO Q6H PRN PRN Reason: Headache/Pain Mild Scale (1-3) Last Admin: 08/08/24 13:08 Dose: 650 mg Al Hydroxide/Mg Hydroxide (Magnesium Hydrox/Alum Hydrox 30 Ml Oral.Susp) 30 ml PO Q6H PRN PRN Reason: Heartburn/Nausea Bupropion HCl (Bupropion Hcl Xl 150 Mg Tab.Er.24h) 150 mg PO DAILY [facility] Last Admin: 08/10/24 09:33 Dose: 150 mg Hydroxyzine HCl (Hydroxyzine Hcl 25 Mg Tablet) 25 mg PO Q6H PRN PRN Reason: Anxiety [place] Carbonate ([place] Carbonate 300 Mg Capsule) 600 mg PO BID [facility] Last Admin: 08/10/24 09:33 Dose: 600 mg Loratadine (Loratadine 10 Mg Tablet) 10 mg PO DAILY [facility] Last Admin: 08/10/24 09:32 Dose: 10 mg Lurasidone HCl (Lurasidone Hcl 20 Mg Tablet) 60 mg PO DAILY@1230 [facility] Last Admin: 08/10/24 13:11 Dose: 60 mg Magnesium Hydroxide (Milk Of Magnesia 30 Ml Oral.Susp) 30 ml PO DAILY PRN PRN Reason: Constipation Melatonin (Melatonin 3 Mg Tablet) 12 mg PO BEDTIME [facility] Last Admin: 08/09/24 21:24 Dose: 12 mg Metoprolol Succinate (Metoprolol Succinate Er 25 Mg Tab.Er.24h) 25 mg PO DAILY [facility]; Protocol Last Admin: 08/10/24 09:32 Dose: 25 mg Nicotine Polacrilex (Nicotine Polacrilex 2 Mg Gum) 4 mg BUCCAL Q2H PRN PRN Reason: Nicotine Cravings Olanzapine (Olanzapine 5 Mg Tablet) 5 mg PO TID PRN PRN Reason: agitation Omeprazole (Omeprazole 20 Mg Capsule.Dr) 20 mg PO DAILY@0630 [facility] Last Admin: 08/10/24 09:32 Dose: 20 mg Quetiapine Fumarate (Quetiapine Fumarate 400 Mg Tablet) 800 mg PO BEDTIME [facility] Last Admin: 08/09/24 21:24 Dose: 800 mg Trazodone HCl (Trazodone Hcl 50 Mg Tablet) 50 mg PO BEDTIME MRX1 PRN PRN Reason: Insomnia Allergies Allergies Allergy/AdvReac Type Severity Reaction Status Date / Time No Known Allergies Allergy Verified 06/19/23 18:03 Assessment & Plan Assessment & Plan (1) Unspecified mood [affective] disorder: Status: Acute Code(s): F39 - Unspecified mood [affective] disorder Plan 07/30: restart/continue outpt meds. T/C adding wellbutrin. 07/31: depressed. add wellbutrin 150 daily. 08/01: started wellbutrin, reading today, which is new. continue current mgmt. still depressed. 08/02: smiles today talking about cartoons, the simpsons. increase wellbutrin Weds. 08/03: Keeping to self. Guarded. Pt reports he always feels depressed ; but would not go into detail. He reports suicidal and homicidal ideation; pt stated, I'm not telling you who I want to hurt . difficult to engage. denies AH/VH. Per nursing slept 8 hours. Continue current tx plan. 11/27: continue current tx plan. difficult to engage. very guarded. +SI/HI 08/05: continue current tx plan. continues guarded. 08/06/2024 Increase Latuda 60 mg consider Vraylar consider ECT try and get discharge summary from [facility]. Patient has been part of DM in the past. Patient will discuss with social work. Patient limited support system hopeless helpless a motivational remains risk of self-harm 08/07: continue tx plan. 08/08: continue current tx plan. 08/09: decrease wellbutrin back to 150 mg daily due to uptick in insomnia. planning for discharge. depression improved from an 8 to a 7. fewer negative thoughts. 08/10: c/o poor sleep. continue current mgmt. make final decision re wellbutrin dosing tomorrow, prepare for DC. Reason for continued inpatient stay Substantial Risk for: inability to function and rapid decompensation Time Spent With Patient Time: Total time managing care of this patient today _25___ minutes.
[2024-08-10 20:00] VITALS: BP 133/90; PULSE 78; RESP 16; TEMP 37.3; O2SAT 96
[2024-08-10] MEDS: Melatonin 3 MG TABLET 12 MG PO (21:32)
[2024-08-10] MEDS: QUEtiapine Fumarate 400 MG TABLET 800 MG PO (21:34)
[2024-08-11 10:01] VITALS: BP 123/88; PULSE 78; RESP 16; TEMP 36.4; O2SAT 95
[2024-08-11] MEDS: Omeprazole 20 MG CAPSULE.DR PO (10:03)
[2024-08-11] MEDS: Loratadine 10 MG TABLET PO (10:04)
[2024-08-11] MEDS: Lithium Carbonate 300 MG CAPSULE 600 MG PO ×2 (10:04→20:57)
[2024-08-11] MEDS: buPROPion HCl XL 150 MG TAB.ER.24H PO (10:04)
[2024-08-11] MEDS: Metoprolol Succinate ER 25 MG TAB.ER.24H PO (10:04)
[2024-08-11] MEDS: Acetaminophen 325 MG TABLET 650 MG PO (13:28)
[2024-08-11] MEDS: Lurasidone HCl 20 MG TABLET 60 MG PO (13:28)
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
[2024-08-11 20:00] VITALS: BP 144/79; PULSE 76; RESP 17; TEMP 36.6; O2SAT 94
[2024-08-11] MEDS: Melatonin 3 MG TABLET 12 MG PO (20:56)
[2024-08-11] MEDS: QUEtiapine Fumarate 400 MG TABLET 800 MG PO (20:57)
[2024-08-12 09:58] VITALS: BP 131/85; PULSE 81; RESP 18; TEMP 36.8; O2SAT 95
[2024-08-12] MEDS: Loratadine 10 MG TABLET PO (10:07)
[2024-08-12] MEDS: Omeprazole 20 MG CAPSULE.DR PO (10:07)
[2024-08-12] MEDS: buPROPion HCl XL 150 MG TAB.ER.24H PO (10:07)
[2024-08-12] MEDS: Lithium Carbonate 300 MG CAPSULE 600 MG PO (10:07)
[2024-08-12] MEDS: Metoprolol Succinate ER 25 MG TAB.ER.24H PO (10:08)
== END 2024-08-12 11:10 | disposition home or self-care (01) | DRG 885 ==
PROVIDERS: Psychiatry & Neurology Psychiatry; Admitting Provider Psychiatry & Neurology Psychiatry; Visit Provider Psychiatry & Neurology Psychiatry
DX: F39 Unspecified mood [affective] disorder (principal); R45.851 Suicidal ideations; E66.9 Obesity, unspecified; I10 Essential (primary) hypertension; E78.5 Hyperlipidemia, unspecified; K21.9 Gastro-esophageal reflux disease without esophagitis; F17.210 Nicotine dependence, cigarettes, uncomplicated; Z71.6 Tobacco abuse counseling; Z79.899 Other long term (current) drug therapy
CPT/HCPCS: 36415; 80053; 80061; 80076; 80178; 83036; 84439; 84443; 86704; 86706; 86709; 86803; 87340

== ENCOUNTER → 2024-07-29 18:47 | Outpatient (BNV) | payer OTHER, SELFPAY | PROVIDERS: Admitting Provider Psychiatry & Neurology Psychiatry; Visit Provider Psychiatry & Neurology Psychiatry | DX: F39 Unspecified mood [affective] disorder (principal) | CPT/HCPCS: 90792; 99231; 99232; 99239 ==

== ENCOUNTER → 2024-07-29 18:47 | Outpatient (BNV) | payer OTHER, SELFPAY | PROVIDERS: Admitting Provider Psychiatry & Neurology Psychiatry; Visit Provider Physician Assistant | DX: Z02.2 Encounter for examination for admission to residential institution (principal) | CPT/HCPCS: 99429 ==

== ENCOUNTER → 2024-07-29 18:47 | Outpatient (BNV) | payer OTHER, SELFPAY | PROVIDERS: Admitting Provider Psychiatry & Neurology Psychiatry; Visit Provider Psychiatry & Neurology Psychiatry | DX: F39 Unspecified mood [affective] disorder (principal) | CPT/HCPCS: 99232 ==

== ENCOUNTER 2025-01-07 16:36 | Outpatient (BNV) | payer OTHER, SELFPAY | END 2025-01-09 10:07 | PROVIDERS: Admitting Provider Psychiatry & Neurology Psychiatry; Visit Provider Internal Medicine | DX: R94.31 Abnormal electrocardiogram [ECG] [EKG] (principal); Z13.6 Encounter for screening for cardiovascular disorders | CPT/HCPCS: 93010 ==

== ENCOUNTER 2025-01-07 16:36 | Inpatient (IN) | payer OTHER, SELFPAY ==
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
[2025-01-07 17:31] VITALS: BP 124/78; PULSE 87; RESP 16; TEMP 36.6; O2SAT 94; BMI 38.2
[2025-01-07 20:00] VITALS: BP 131/78; PULSE 92; RESP 16; TEMP 36.8; O2SAT 95
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
[2025-01-07] MEDS: QUEtiapine Fumarate 400 MG TABLET 800 MG PO (20:43)
[2025-01-07] MEDS: Lithium Carbonate 300 MG CAPSULE 600 MG PO (20:43)
[2025-01-07] MEDS: Famotidine 20 MG TABLET PO (20:43)
[2025-01-07] MEDS: Glycopyrrolate 1 MG TABLET PO (21:38)
[2025-01-08] MEDS: Pantoprazole Sodium 20 MG TABLET.DR PO ×2 (06:57→17:16)
[2025-01-08] MEDS: Loratadine 10 MG TABLET PO (08:33)
[2025-01-08] MEDS: Glycopyrrolate 1 MG TABLET PO (08:33)
[2025-01-08] MEDS: Famotidine 20 MG TABLET PO ×2 (08:33→21:10)
[2025-01-08 08:35] VITALS: BP 138/86; PULSE 83; TEMP 36.9; O2SAT 95
[2025-01-08 08:37] VITALS: BP 138/86; PULSE 83
[2025-01-08] MEDS: Metoprolol Succinate ER 25 MG TAB.ER.24H PO (08:37)
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
[2025-01-08] MEDS: carBAMazepine 100 MG TAB.CHEW 50 MG PO ×2 (12:44→21:10)
[2025-01-08 13:23] LABS: Appearance Urine Clear; Color Urine Yellow; Glucose Urine UA Negative (Negative); Leukocyte Esterase Urine Negative (Negative); Nitrite Urine Negative (Negative); PH 7.5 (5.0-9.0); Specific Gravity - Urine 1.015 (1.005-1.025); Urine Blood Negative (Negative); Urine Ketones Negative (Negative); Urine Protein Negative (Neg-Trace)
[2025-01-08 20:00] VITALS: BP 126/78; PULSE 96; RESP 18; TEMP 36.9; O2SAT 97
[2025-01-08] MEDS: QUEtiapine Fumarate 400 MG TABLET 800 MG PO (21:09)
[2025-01-08] MEDS: Melatonin 3 MG TABLET 9 MG PO (21:10)
[2025-01-08] MEDS: fluvoxaMINE Maleate 50 MG TABLET 100 MG PO (21:10)
--- NOTE | 2025-01-09 | ECG_ITS ---
Test Reason : DrAlexander Ordered Blood Pressure : */* mmHG Vent. Rate : 71 BPM Atrial Rate : 71 BPM P-R Int : 158 ms QRS Dur : 112 ms QT Int : 392 ms P-R-T Axes : 48 72 68 degrees QTcB Int : 425 ms Normal sinus rhythm Normal ECG No previous ECGs available Referred By: Rodrigue Edwards Electronically Signed By: TIAN NICHOLS
[2025-01-09 09:40] VITALS: BP 106/64; PULSE 77; RESP 18; TEMP 36.9; O2SAT 97
[2025-01-09 09:43] VITALS: BP 106/64; PULSE 77
[2025-01-09] MEDS: Loratadine 10 MG TABLET PO (09:43)
[2025-01-09] MEDS: carBAMazepine 100 MG TAB.CHEW 50 MG PO ×2 (09:43→20:53)
[2025-01-09] MEDS: Pantoprazole Sodium 20 MG TABLET.DR PO ×2 (09:43→16:13)
[2025-01-09] MEDS: Famotidine 20 MG TABLET PO ×2 (09:43→20:53)
[2025-01-09] MEDS: Metoprolol Succinate ER 50 MG TAB.ER.24H PO (09:43)
--- NOTE | 2025-01-09 10:48 | ECG_ITS ---
Test Reason : Ordered Blood Pressure : */* mmHG Vent. Rate : 73 BPM Atrial Rate : 73 BPM P-R Int : 176 ms QRS Dur : 82 ms QT Int : 404 ms P-R-T Axes : 33 5 116 degrees QTcB Int : 445 ms Normal sinus rhythm Minimal voltage criteria for LVH, may be normal variant ( R in aVL ) ST & T wave abnormality, consider lateral ischemia Abnormal ECG When compared with ECG of 09-Jan-2025 10:07, QRS duration has decreased Nonspecific T wave abnormality now evident in Inferior leads T wave inversion now evident in Lateral leads Referred By: Rodrigue Edwards Electronically Signed By: TIAN NICHOLS
--- NOTE | 2025-01-09 15:59 | P.PNPSI_ITS ---
Subjective Subjective Date of Service: 01/09/25 Reason For Visit: F32.9 Unspecified depressive d/o Interim History: poorly engaged. reports trials of prozac, zoloft, celexa, paxil, vraylar, lurasidone, clozaril, seroquel, pristiq, effexor, wellbutrin, buspar, and remeron. would like ECT as he has had some success with it in the past. mood tired, i guess. per staff, slept 8 hours. +SI, no plan. blunted, withdrawn. not attending groups. slept well. Mental Status Exam Mental Status Exam Narrative: adequately dressed and groomed, cooperative, somewhat slow. mild PMR. no PMA. speech flattened prosody, nml amount, mildly slowed, nml loudness. thoughts linear and logical. affect flexible. mood tired, i guess. no SI/HI/AVH expressed. staff reporting pt expresses SI. Diagnostics Vital Signs (24Hr): Vital Signs - 24 hr 01/08/25 20:00 01/09/25 09:40 01/09/25 09:43 Temperature 98.5 F 98.5 F Pulse Rate 96 77 77 Respiratory Rate 18 18 Blood Pressure 126/78 106/64 106/64 Pulse Oximetry 97 97 Oxygen Delivery Method Room Air Room Air BMI result Body Mass Index 38.2 Labs Labs: Laboratory Results - last 48 hr 01/08/25 12:25 Urine Color Yellow Urine Appearance Clear Urine pH 7.5 Ur Specific Amelia 1.015 Urine Protein Negative Urine Glucose (UA) Negative Urine Ketones Negative Urine Blood Negative Urine Nitrite Negative Ur Leukocyte Esterase Negative Medications Medications Current Medications Acetaminophen (Acetaminophen 325 Mg Tablet) 650 mg PO Q6H PRN PRN Reason: Headache/Pain, Scale 1-10 Al Hydroxide/Mg Hydroxide (Magnesium Hydrox/Alum Hydrox 30 Ml Oral.Susp) 30 ml PO Q6H PRN PRN Reason: Heartburn/Nausea Carbamazepine (Carbamazepine 100 Mg Tab.Chew) 50 mg PO BID [facility] Last Admin: 01/09/25 09:43 Dose: 50 mg Famotidine (Famotidine 20 Mg Tablet) 20 mg PO BID [facility] Stop: 02/04/25 20:59 Last Admin: 01/09/25 09:43 Dose: 20 mg Fluvoxamine Maleate (Fluvoxamine Maleate 50 Mg Tablet) 100 mg PO BEDTIME [facility] Last Admin: 01/08/25 21:10 Dose: 100 mg Hydroxyzine HCl (Hydroxyzine Hcl 50 Mg Tablet) 50 mg PO 6XD PRN PRN Reason: mod to severe anxiety Ibuprofen (Ibuprofen 400 Mg Tablet) 400 mg PO Q6H PRN PRN Reason: Headache Loratadine (Loratadine 10 Mg Tablet) 10 mg PO DAILY [facility] Last Admin: 01/09/25 09:43 Dose: 10 mg Magnesium Hydroxide (Milk Of Magnesia 30 Ml Oral.Susp) 30 ml PO DAILY PRN PRN Reason: Constipation Melatonin (Melatonin 3 Mg Tablet) 9 mg PO BEDTIME [facility] Last Admin: 01/08/25 21:10 Dose: 9 mg Metoprolol Succinate (Metoprolol Succinate Er 50 Mg Tab.Er.24h) 50 mg PO DAILY [facility]; Protocol Last Admin: 01/09/25 09:43 Dose: 50 mg Nicotine Polacrilex (Nicotine Polacrilex 2 Mg Gum) 4 mg BUCCAL Q2H PRN PRN Reason: Nicotine Cravings Pantoprazole Sodium (Pantoprazole Sodium 20 Mg Tablet.Dr) 20 mg PO BID@0630,1630 [facility] Last Admin: 01/09/25 09:43 Dose: 20 mg Polyethylene Glycol (Polyethylene Glycol 3350 17 Gm Powd.Pack) 17 gm PO DAILY PRN PRN Reason: Constipation Quetiapine Fumarate (Quetiapine Fumarate 400 Mg Tablet) 800 mg PO BEDTIME [facility] Last Admin: 01/08/25 21:09 Dose: 800 mg Trazodone HCl (Trazodone Hcl 50 Mg Tablet) 50 mg PO BEDTIME MRX1 PRN PRN Reason: Insomnia Allergies Allergies Allergy/AdvReac Type Severity Reaction Status Date / Time No Known Allergies Allergy Verified 06/19/23 18:03 Assessment & Plan Assessment & Plan (1) Unspecified mood [affective] disorder: Status: Acute Code(s): F39 - Unspecified mood [affective] disorder Plan 01/08: DC clozapine and asenapine as not indicated. continue seroquel for sleep. taper and D/C tegretol. continue luvox. ECT clearance. 01/09: EKG WNL. awaiting hospitalist consult. DC tegretol after tomorrow morning. otherwise continue current mgmt. Reason for continued inpatient stay Substantial Risk for: harm to self and inability to function Time Spent With Patient Time: Total time managing care of this patient today ____ minutes.
[2025-01-09 19:55] VITALS: BP 129/78; PULSE 84; RESP 16; TEMP 36.4; O2SAT 96
[2025-01-09] MEDS: Acetaminophen 325 MG TABLET 650 MG PO (20:30)
[2025-01-09] MEDS: Melatonin 3 MG TABLET 9 MG PO (20:53)
[2025-01-09] MEDS: fluvoxaMINE Maleate 50 MG TABLET 100 MG PO (20:53)
[2025-01-09] MEDS: QUEtiapine Fumarate 400 MG TABLET 800 MG PO (20:54)
--- NOTE | 2025-01-09 22:05 | PM.EVENT ---
Event Note Date of Service: 01/09/25 Event Note: attempted to see pt for ECT risk stratification consult. he declined consult at this time. he states that he is sleepy and does not want to talk. he is aware of the reasoning for the consult. Time Spent With Patient Time: Total time managing care of this patient today ____ minutes.
[2025-01-10 07:33] VITALS: BP 124/74; PULSE 71; RESP 16; TEMP 37.1; O2SAT 98
[2025-01-10 08:39] VITALS: BP 124/74; PULSE 71
[2025-01-10] MEDS: Metoprolol Succinate ER 50 MG TAB.ER.24H PO (08:39)
[2025-01-10] MEDS: Famotidine 20 MG TABLET PO ×2 (08:40→21:14)
[2025-01-10] MEDS: carBAMazepine 100 MG TAB.CHEW 50 MG PO (08:40)
[2025-01-10] MEDS: Loratadine 10 MG TABLET PO (08:40)
[2025-01-10] MEDS: Pantoprazole Sodium 20 MG TABLET.DR PO ×2 (08:40→16:07)
--- NOTE | 2025-01-10 12:38 | HO.PSYCHPN ---
Subjective Subjective Date of Service: 01/10/25 Reason For Visit: F32.9 Unspecified depressive d/o Interim History: in bed, somnolent. said he didn't sleep particularly well last night, which is not infrequent. decision is made to leave meds alone for now. awaiting medical risk strat eval for ECT. per staff, +dep, +meds. pacing. isolative. no plan or intent despite SI. reading. slept 7 hours. Mental Status Exam Mental Status Exam Narrative: adequately dressed and groomed, cooperative, somewhat slow. mild PMR. no PMA. speech flattened prosody, nml amount, mildly slowed, nml loudness. thoughts linear and logical. affect constricted. mood tired. no SI/HI/AVH expressed. Diagnostics Vital Signs (24Hr): Vital Signs - 24 hr 01/09/25 19:55 01/10/25 07:33 01/10/25 08:39 Temperature 97.5 F 98.8 F Pulse Rate 84 71 71 Respiratory Rate 16 16 Blood Pressure 129/78 124/74 124/74 Pulse Oximetry 96 98 Oxygen Delivery Method Room Air Room Air BMI result Body Mass Index 38.2 Labs Labs: Laboratory Results - last 48 hr 01/08/25 12:25 Urine Color Yellow Urine Appearance Clear Urine pH 7.5 Ur Specific [place] 1.015 Urine Protein Negative Urine Glucose (UA) Negative Urine Ketones Negative Urine Blood Negative Urine Nitrite Negative Ur Leukocyte Esterase Negative Medications Medications Current Medications Acetaminophen (Acetaminophen 325 Mg Tablet) 650 mg PO Q6H PRN PRN Reason: Headache/Pain, Scale 1-10 Last Admin: 01/09/25 20:30 Dose: 650 mg Al Hydroxide/Mg Hydroxide (Magnesium Hydrox/Alum Hydrox 30 Ml Oral.Susp) 30 ml PO Q6H PRN PRN Reason: Heartburn/Nausea Famotidine (Famotidine 20 Mg Tablet) 20 mg PO BID [facility] Stop: 02/04/25 20:59 Last Admin: 01/10/25 08:40 Dose: 20 mg Fluvoxamine Maleate (Fluvoxamine Maleate 50 Mg Tablet) 100 mg PO BEDTIME [facility] Last Admin: 01/09/25 20:53 Dose: 100 mg Hydroxyzine HCl (Hydroxyzine Hcl 50 Mg Tablet) 50 mg PO 6XD PRN PRN Reason: mod to severe anxiety Ibuprofen (Ibuprofen 400 Mg Tablet) 400 mg PO Q6H PRN PRN Reason: Headache Loratadine (Loratadine 10 Mg Tablet) 10 mg PO DAILY [facility] Last Admin: 01/10/25 08:40 Dose: 10 mg Magnesium Hydroxide (Milk Of Magnesia 30 Ml Oral.Susp) 30 ml PO DAILY PRN PRN Reason: Constipation Melatonin (Melatonin 3 Mg Tablet) 9 mg PO BEDTIME [facility] Last Admin: 01/09/25 20:53 Dose: 9 mg Metoprolol Succinate (Metoprolol Succinate Er 50 Mg Tab.Er.24h) 50 mg PO DAILY [facility]; Protocol Last Admin: 01/10/25 08:39 Dose: 50 mg Nicotine Polacrilex (Nicotine Polacrilex 2 Mg Gum) 4 mg BUCCAL Q2H PRN PRN Reason: Nicotine Cravings Pantoprazole Sodium (Pantoprazole Sodium 20 Mg Tablet.Dr) 20 mg PO BID@0630,1630 [facility] Last Admin: 01/10/25 08:40 Dose: 20 mg Polyethylene Glycol (Polyethylene Glycol 3350 17 Gm Powd.Pack) 17 gm PO DAILY PRN PRN Reason: Constipation Quetiapine Fumarate (Quetiapine Fumarate 400 Mg Tablet) 800 mg PO BEDTIME [facility] Last Admin: 01/09/25 20:54 Dose: 800 mg Trazodone HCl (Trazodone Hcl 50 Mg Tablet) 50 mg PO BEDTIME MRX1 PRN PRN Reason: Insomnia Allergies Allergies Allergy/AdvReac Type Severity Reaction Status Date / Time No Known Allergies Allergy Verified 06/19/23 18:03 Assessment & Plan Assessment & Plan (1) Unspecified mood [affective] disorder: Status: Acute Code(s): F39 - Unspecified mood [affective] disorder Plan 01/08: DC clozapine and asenapine as not indicated. continue seroquel for sleep. taper and D/C tegretol. continue luvox. ECT clearance. 01/09: EKG WNL. awaiting hospitalist consult. DC tegretol after tomorrow morning. otherwise continue current mgmt. 01/10: pt declined medical eval yesterday evening due to perceived late hour and tiredness; awaiting return of hospitalist. pt appears constricted, hypomotoric, hypersomnolent. planning for ECT weds if hospitalist consult completed by then. otherwise continue current mgmt. Reason for continued inpatient stay Substantial Risk for: harm to self and inability to function Time Spent With Patient Time: Total time managing care of this patient today __25__ minutes.
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
[2025-01-10 19:15] VITALS: BP 133/88; PULSE 86; RESP 16; TEMP 36.6; O2SAT 94
[2025-01-10] MEDS: fluvoxaMINE Maleate 50 MG TABLET 100 MG PO (21:14)
[2025-01-10] MEDS: Melatonin 3 MG TABLET 9 MG PO (21:14)
[2025-01-10] MEDS: QUEtiapine Fumarate 400 MG TABLET 800 MG PO (21:14)
[2025-01-11 08:00] VITALS: BP 115/70; PULSE 79; RESP 18; TEMP 37.1; O2SAT 96
[2025-01-11] MEDS: Loratadine 10 MG TABLET PO (08:41)
[2025-01-11] MEDS: Pantoprazole Sodium 20 MG TABLET.DR PO ×2 (08:41→16:10)
[2025-01-11] MEDS: Famotidine 20 MG TABLET PO ×2 (08:41→21:26)
[2025-01-11] MEDS: Metoprolol Succinate ER 50 MG TAB.ER.24H PO (08:45)
[2025-01-11] MEDS: Acetaminophen 325 MG TABLET 650 MG PO (08:46)
--- NOTE | 2025-01-11 14:38 | P.PNPSI_ITS ---
Subjective Subjective Date of Service: 01/11/25 Reason For Visit: F32.9 Unspecified depressive d/o Interim History: calm, cooperative. informed ECT clearance completed, would schedule for tomorrow. pt in agreement. per staff, no change in presentation. Mental Status Exam Mental Status Exam Narrative: adequately dressed and groomed, cooperative, somewhat slow. mild PMR. no PMA. speech flattened prosody, nml amount, mildly slowed, nml loudness. thoughts linear and logical. affect constricted. mood not assessed. no SI/HI/AVH expressed. Diagnostics Vital Signs (24Hr): Vital Signs - 24 hr 01/10/25 19:15 01/11/25 08:00 Temperature 97.8 F 98.8 F Pulse Rate 86 79 Respiratory Rate 16 18 Blood Pressure 133/88 115/70 Pulse Oximetry 94 96 Oxygen Delivery Method Room Air Room Air BMI result Body Mass Index 38.2 Medications Medications Current Medications Acetaminophen (Acetaminophen 325 Mg Tablet) 650 mg PO Q6H PRN PRN Reason: Headache/Pain, Scale 1-10 Last Admin: 01/11/25 08:46 Dose: 650 mg Al Hydroxide/Mg Hydroxide (Magnesium Hydrox/Alum Hydrox 30 Ml Oral.Susp) 30 ml PO Q6H PRN PRN Reason: Heartburn/Nausea Famotidine (Famotidine 20 Mg Tablet) 20 mg PO BID [facility] Stop: 02/04/25 20:59 Last Admin: 01/11/25 08:41 Dose: 20 mg Fluvoxamine Maleate (Fluvoxamine Maleate 50 Mg Tablet) 100 mg PO BEDTIME [facility] Last Admin: 01/10/25 21:14 Dose: 100 mg Hydroxyzine HCl (Hydroxyzine Hcl 50 Mg Tablet) 50 mg PO 6XD PRN PRN Reason: mod to severe anxiety Ibuprofen (Ibuprofen 400 Mg Tablet) 400 mg PO Q6H PRN PRN Reason: Headache Loratadine (Loratadine 10 Mg Tablet) 10 mg PO DAILY [facility] Last Admin: 01/11/25 08:41 Dose: 10 mg Magnesium Hydroxide (Milk Of Magnesia 30 Ml Oral.Susp) 30 ml PO DAILY PRN PRN Reason: Constipation Melatonin (Melatonin 3 Mg Tablet) 9 mg PO BEDTIME [facility] Last Admin: 01/10/25 21:14 Dose: 9 mg Metoprolol Succinate (Metoprolol Succinate Er 50 Mg Tab.Er.24h) 50 mg PO DAILY [facility]; Protocol Last Admin: 01/11/25 08:45 Dose: 50 mg Nicotine Polacrilex (Nicotine Polacrilex 2 Mg Gum) 4 mg BUCCAL Q2H PRN PRN Reason: Nicotine Cravings Pantoprazole Sodium (Pantoprazole Sodium 20 Mg Tablet.Dr) 20 mg PO BID@0630,1630 [facility] Last Admin: 01/11/25 08:41 Dose: 20 mg Polyethylene Glycol (Polyethylene Glycol 3350 17 Gm Powd.Pack) 17 gm PO DAILY PRN PRN Reason: Constipation Quetiapine Fumarate (Quetiapine Fumarate 400 Mg Tablet) 800 mg PO BEDTIME [facility] Last Admin: 01/10/25 21:14 Dose: 800 mg Trazodone HCl (Trazodone Hcl 50 Mg Tablet) 50 mg PO BEDTIME MRX1 PRN PRN Reason: Insomnia Allergies Allergies Allergy/AdvReac Type Severity Reaction Status Date / Time No Known Allergies Allergy Verified 06/19/23 18:03 Assessment & Plan Assessment & Plan (1) Bipolar I disorder with mixed features: Status: Acute Code(s): F31.9 - Bipolar disorder, unspecified Plan 01/08: DC clozapine and asenapine as not indicated. continue seroquel for sleep. taper and D/C tegretol. continue luvox. ECT clearance. 01/09: EKG WNL. awaiting hospitalist consult. DC tegretol after tomorrow morning. otherwise continue current mgmt. 01/10: pt declined medical eval yesterday evening due to perceived late hour and tiredness; awaiting return of hospitalist. pt appears constricted, hypomotoric, hypersomnolent. planning for ECT weds if hospitalist consult completed by then. otherwise continue current mgmt. 01/11: no medical contraindications for ECT. ECT #1 ordered for tomorrow morning. NPO p MN. pt aware, in agreement. Reason for continued inpatient stay Substantial Risk for: harm to self and inability to function Time Spent With Patient Time: Total time managing care of this patient today __35__ minutes.
[2025-01-11 20:00] VITALS: BP 141/85; PULSE 78; RESP 16; TEMP 36.8; O2SAT 96
[2025-01-11] MEDS: QUEtiapine Fumarate 400 MG TABLET 800 MG PO (21:25)
[2025-01-11] MEDS: fluvoxaMINE Maleate 50 MG TABLET 100 MG PO (21:26)
[2025-01-11] MEDS: Melatonin 3 MG TABLET 9 MG PO (21:26)
[2025-01-12] VITALS (13 sets, daily range): BP systolic 107–131; BP diastolic 65–86; PULSE 70–98; RESP 14–18; TEMP 36.2–36.9; O2SAT 93–98; BMI 38.2
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
[2025-01-12] MEDS: Lactated Ringers 1,000 ML 50 ML IVCONT (06:59)
--- NOTE | 2025-01-12 08:07 | MHC.SHP ---
Pre-Procedural Eval Section A - 24 Hr Update-Section A only Date of Service: 01/12/25 The patient is an INPATIENT: Yes Changes since office visit: Yes Changes in Medication and Yes Patient answered all questions; No Cold of Flu in the past 2 weeks and No New Medical Problems The patient has been examined within 24 hours of the surgical procedure. The History & Physical has been completed within 30 days and I have reviewed it.: Yes Section B - Complete if H&P > 30 days Chief Complaint: F32.9 Unspecified depressive d/o Allergies: Allergies Allergy/AdvReac Type Severity Reaction Status Date / Time No Known Allergies Allergy Verified 06/19/23 18:03 Plan I have reviewed the history and physical and performed a pertinent physical examination on my patient. No changes have occurred unless specified. Time Spent With Patient Time: Total time managing care of this patient today ____ minutes.
--- NOTE | 2025-01-12 08:53 | HO.ECTPROC ---
ECT Procedure Note Diagnosis/Treatment Date of Service: 01/12/25 Time: Total time managing care of this patient today ____ minutes. ECT Settings Device: THYMATRON DGx
--- NOTE | 2025-01-12 08:54 | HO.PSYCHPN ---
Subjective Subjective Reason For Visit: F32.9 Unspecified depressive d/o Diagnostics Vital Signs (24Hr): Vital Signs - 24 hr 01/11/25 20:00 01/12/25 06:47 01/12/25 06:49 Temperature 98.2 F 98.3 F 97.1 F Pulse Rate 78 74 71 Respiratory Rate 16 16 15 Blood Pressure 141/85 H 123/71 114/82 Pulse Oximetry 96 96 95 Oxygen Delivery Method Room Air Room Air BMI result Body Mass Index 38.2 Medications Medications Current Medications Acetaminophen (Acetaminophen 325 Mg Tablet) 650 mg PO Q6H PRN PRN Reason: Headache/Pain, Scale 1-10 Last Admin: 01/11/25 08:46 Dose: 650 mg Al Hydroxide/Mg Hydroxide (Magnesium Hydrox/Alum Hydrox 30 Ml Oral.Susp) 30 ml PO Q6H PRN PRN Reason: Heartburn/Nausea Famotidine (Famotidine 20 Mg Tablet) 20 mg PO BID [facility] Stop: 02/04/25 20:59 Last Admin: 01/11/25 21:26 Dose: 20 mg Fluvoxamine Maleate (Fluvoxamine Maleate 50 Mg Tablet) 100 mg PO BEDTIME [facility] Last Admin: 01/11/25 21:26 Dose: 100 mg Hydroxyzine HCl (Hydroxyzine Hcl 50 Mg Tablet) 50 mg PO 6XD PRN PRN Reason: mod to severe anxiety Lactated Ringer's (Lr) 1,000 mls @ 50 mls/hr IVCONT .Q20H [facility] Last Admin: 01/12/25 06:59 Dose: 50 mls/hr Ibuprofen (Ibuprofen 400 Mg Tablet) 400 mg PO Q6H PRN PRN Reason: Headache Loratadine (Loratadine 10 Mg Tablet) 10 mg PO DAILY [facility] Last Admin: 01/11/25 08:41 Dose: 10 mg Magnesium Hydroxide (Milk Of Magnesia 30 Ml Oral.Susp) 30 ml PO DAILY PRN PRN Reason: Constipation Melatonin (Melatonin 3 Mg Tablet) 9 mg PO BEDTIME [facility] Last Admin: 01/11/25 21:26 Dose: 9 mg Metoprolol Succinate (Metoprolol Succinate Er 50 Mg Tab.Er.24h) 50 mg PO DAILY [facility]; Protocol Last Admin: 01/11/25 08:45 Dose: 50 mg Naloxone HCl (Naloxone Hcl 0.4 Mg/Ml Vial) 0.04 mg IVPUSH Q5M PRN PRN Reason: Excessive sedation or RR < 8 Nicotine Polacrilex (Nicotine Polacrilex 2 Mg Gum) 4 mg BUCCAL Q2H PRN PRN Reason: Nicotine Cravings Pantoprazole Sodium (Pantoprazole Sodium 20 Mg Tablet.Dr) 20 mg PO BID@0630,1630 [facility] Last Admin: 01/11/25 16:10 Dose: 20 mg Polyethylene Glycol (Polyethylene Glycol 3350 17 Gm Powd.Pack) 17 gm PO DAILY PRN PRN Reason: Constipation Quetiapine Fumarate (Quetiapine Fumarate 400 Mg Tablet) 800 mg PO BEDTIME [facility] Last Admin: 01/11/25 21:25 Dose: 800 mg Trazodone HCl (Trazodone Hcl 50 Mg Tablet) 50 mg PO BEDTIME MRX1 PRN PRN Reason: Insomnia Allergies Allergies Allergy/AdvReac Type Severity Reaction Status Date / Time No Known Allergies Allergy Verified 06/19/23 18:03 Assessment & Plan Assessment & Plan (1) Bipolar I disorder with mixed features: Status: Acute Code(s): F31.9 - Bipolar disorder, unspecified Plan 01/08: DC clozapine and asenapine as not indicated. continue seroquel for sleep. taper and D/C tegretol. continue luvox. ECT clearance. 01/09: EKG WNL. awaiting hospitalist consult. DC tegretol after tomorrow morning. otherwise continue current mgmt. 01/10: pt declined medical eval yesterday evening due to perceived late hour and tiredness; awaiting return of hospitalist. pt appears constricted, hypomotoric, hypersomnolent. planning for ECT weds if hospitalist consult completed by then. otherwise continue current mgmt. 01/11: no medical contraindications for ECT. ECT #1 ordered for tomorrow morning. NPO p MN. pt aware, in agreement. Time Spent With Patient Time: Total time managing care of this patient today ____ minutes.
--- NOTE | 2025-01-12 09:06 | HO.ANESEVENT ---
Anesthesia Event Note Date of Service: 01/13/25 Event Note: ANESTHESIA ECT EVENT NOTE: In preparation for the ECT, the patient was given etomidate 14 mg followed by succ 100mg. The dose of succ proved inadequate for musc relaxation and the patient was flailing about. We had propofol immediately available, so before an additional dose of succ (or rocuronium) could be procured from the [facility], we gave a dose of propofol, which adequately relaxed the patient. During this time, Ambu ventilation proved inadequate bec of a combination of his facial habitus and his hi. We also had difficulty obtaining a pulse oximeter signal because of the patient's flailing about. The patient became cyanotic and began to eliza. A #4 LMA was inserted and adequate ventilation w good chest/abd movement was obtained. His HR immed responded and he became tachycardic, possibly SVT. We gave esmolol 30 mg, along w midazolam 2mg, and changed the #4 LMA to a #5 LMA. The rhythm broke to a clear sinus rhythm. A good pulse ox signal was obtained (see anesthesia record). The ECT was cancelled. Ultimately the patient's SV resumed and he coughed the LMA out. Spont ventilation was adequate with with good chest excursion. A good Sat > 90% was obtained on NC oxygen. The suppl oxygen was tapered and the patient awoke. SpO2 on room air was mid 90's. He had no recall. He complained only of muscle aches. The patient was returned to his inpatient room in good condition. . Time Spent With Patient Time: Total time managing care of this patient today ____ minutes.
[2025-01-12] MEDS: Acetaminophen 325 MG TABLET 650 MG PO ×2 (10:08→21:04)
[2025-01-12] MEDS: Metoprolol Succinate ER 50 MG TAB.ER.24H PO (10:42)
[2025-01-12] MEDS: Pantoprazole Sodium 20 MG TABLET.DR PO ×2 (10:42→16:40)
[2025-01-12] MEDS: Loratadine 10 MG TABLET PO (10:42)
[2025-01-12] MEDS: Famotidine 20 MG TABLET PO ×2 (10:42→21:05)
--- NOTE | 2025-01-12 10:55 | PC.NURSE ---
Dr. Edwards authorized late administration of medication.
--- NOTE | 2025-01-12 14:03 | HO.PSYCHPN ---
Subjective Subjective Date of Service: 01/12/25 Reason For Visit: F32.9 Unspecified depressive d/o Interim History: seen in his room, resting in bed, feeling junky. reviewed events of the morning, ie poor reaction to anesthetic and resulting failed ECT attempt. completed ANNETTE for [facility] records re h/o ECT there, request faxed to [facility]. per staff, +SI. no anxiety. pacing afternoon. feeling numb. Mental Status Exam Mental Status Exam Narrative: adequately dressed and groomed, cooperative, somewhat slow. mild PMR. no PMA. speech flattened prosody, nml amount, mildly slowed, nml loudness. thoughts linear and logical. affect constricted. mood not assessed. no SI/HI/AVH expressed. Diagnostics Vital Signs (24Hr): Vital Signs - 24 hr 01/11/25 20:00 01/12/25 06:47 01/12/25 06:49 Temperature 98.2 F 98.3 F 97.1 F Pulse Rate 78 74 71 Respiratory Rate 16 16 15 Blood Pressure 141/85 H 123/71 114/82 Pulse Oximetry 96 96 95 Oxygen Delivery Method Room Air Room Air Oxygen Flow Rate 01/12/25 08:53 01/12/25 08:58 01/12/25 09:03 Temperature 97.6 F Pulse Rate 87 83 83 Respiratory Rate 15 15 14 Blood Pressure 127/85 128/86 118/82 Pulse Oximetry 96 96 96 Oxygen Delivery Method Nasal Cannula with ETCO2 Nasal Cannula with ETCO2 Nasal Cannula with ETCO2 Oxygen Flow Rate 3 3 2 01/12/25 09:08 01/12/25 09:23 01/12/25 09:38 Temperature Pulse Rate 83 84 88 Respiratory Rate 14 14 15 Blood Pressure 130/85 117/86 108/80 Pulse Oximetry 97 93 94 Oxygen Delivery Method Nasal Cannula with ETCO2 Room Air Room Air Oxygen Flow Rate 2 01/12/25 09:53 01/12/25 10:08 01/12/25 10:34 Temperature 97.6 F 97.8 F Pulse Rate 85 98 85 Respiratory Rate 15 16 18 Blood Pressure 119/85 112/85 107/65 Pulse Oximetry 94 95 96 Oxygen Delivery Method Room Air Room Air Room Air Oxygen Flow Rate 01/12/25 10:42 Temperature Pulse Rate 85 Respiratory Rate Blood Pressure 107/65 Pulse Oximetry Oxygen Delivery Method Oxygen Flow Rate BMI result Body Mass Index 38.2 Medications Medications Current Medications Acetaminophen (Acetaminophen 325 Mg Tablet) 650 mg PO Q6H PRN PRN Reason: Headache/Pain, Scale 1-10 Last Admin: 01/12/25 10:08 Dose: 650 mg Al Hydroxide/Mg Hydroxide (Magnesium Hydrox/Alum Hydrox 30 Ml Oral.Susp) 30 ml PO Q6H PRN PRN Reason: Heartburn/Nausea Famotidine (Famotidine 20 Mg Tablet) 20 mg PO BID [facility] Stop: 02/04/25 20:59 Last Admin: 01/12/25 10:42 Dose: 20 mg Fluvoxamine Maleate (Fluvoxamine Maleate 50 Mg Tablet) 100 mg PO BEDTIME [facility] Last Admin: 01/11/25 21:26 Dose: 100 mg Hydroxyzine HCl (Hydroxyzine Hcl 50 Mg Tablet) 50 mg PO 6XD PRN PRN Reason: mod to severe anxiety Lactated Ringer's (Lr) 1,000 mls @ 50 mls/hr IVCONT .Q20H [facility] Last Admin: 01/12/25 06:59 Dose: 50 mls/hr Ibuprofen (Ibuprofen 400 Mg Tablet) 400 mg PO Q6H PRN PRN Reason: Headache Loratadine (Loratadine 10 Mg Tablet) 10 mg PO DAILY [facility] Last Admin: 01/12/25 10:42 Dose: 10 mg Magnesium Hydroxide (Milk Of Magnesia 30 Ml Oral.Susp) 30 ml PO DAILY PRN PRN Reason: Constipation Melatonin (Melatonin 3 Mg Tablet) 9 mg PO BEDTIME [facility] Last Admin: 01/11/25 21:26 Dose: 9 mg Metoprolol Succinate (Metoprolol Succinate Er 50 Mg Tab.Er.24h) 50 mg PO DAILY [facility]; Protocol Last Admin: 01/12/25 10:42 Dose: 50 mg Naloxone HCl (Naloxone Hcl 0.4 Mg/Ml Vial) 0.04 mg IVPUSH Q5M PRN PRN Reason: Excessive sedation or RR < 8 Nicotine Polacrilex (Nicotine Polacrilex 2 Mg Gum) 4 mg BUCCAL Q2H PRN PRN Reason: Nicotine Cravings Pantoprazole Sodium (Pantoprazole Sodium 20 Mg Tablet.Dr) 20 mg PO BID@0630,1630 [facility] Last Admin: 01/12/25 10:42 Dose: 20 mg Polyethylene Glycol (Polyethylene Glycol 3350 17 Gm Powd.Pack) 17 gm PO DAILY PRN PRN Reason: Constipation Quetiapine Fumarate (Quetiapine Fumarate 400 Mg Tablet) 800 mg PO BEDTIME [facility] Last Admin: 01/11/25 21:25 Dose: 800 mg Trazodone HCl (Trazodone Hcl 50 Mg Tablet) 50 mg PO BEDTIME MRX1 PRN PRN Reason: Insomnia Allergies Allergies Allergy/AdvReac Type Severity Reaction Status Date / Time No Known Allergies Allergy Verified 06/19/23 18:03 Assessment & Plan Assessment & Plan (1) Bipolar I disorder with mixed features: Status: Acute Code(s): F31.9 - Bipolar disorder, unspecified Plan 01/08: DC clozapine and asenapine as not indicated. continue seroquel for sleep. taper and D/C tegretol. continue luvox. ECT clearance. 01/09: EKG WNL. awaiting hospitalist consult. DC tegretol after tomorrow morning. otherwise continue current mgmt. 01/10: pt declined medical eval yesterday evening due to perceived late hour and tiredness; awaiting return of hospitalist. pt appears constricted, hypomotoric, hypersomnolent. planning for ECT weds if hospitalist consult completed by then. otherwise continue current mgmt. 01/11: no medical contraindications for ECT. ECT #1 ordered for tomorrow morning. NPO p MN. pt aware, in agreement. 01/12: poor reaction to etomidate. ECT records requested from [facility]. no ECT given today. continue current mgmt. Reason for continued inpatient stay Substantial Risk for: harm to self and inability to function Time Spent With Patient Time: Total time managing care of this patient today __35__ minutes.
[2025-01-12] MEDS: Melatonin 3 MG TABLET 9 MG PO (21:05)
[2025-01-12] MEDS: QUEtiapine Fumarate 400 MG TABLET 800 MG PO (21:11)
[2025-01-12] MEDS: fluvoxaMINE Maleate 50 MG TABLET 100 MG PO (21:14)
[2025-01-13 07:00] VITALS: BMI 38.9
[2025-01-13 08:28] VITALS: BP 114/68; PULSE 68; RESP 18; TEMP 36.4; O2SAT 96
[2025-01-13] MEDS: Pantoprazole Sodium 20 MG TABLET.DR PO ×2 (08:29→17:00)
[2025-01-13] MEDS: Famotidine 20 MG TABLET PO ×2 (08:29→21:12)
[2025-01-13] MEDS: Loratadine 10 MG TABLET PO (08:29)
[2025-01-13] MEDS: Metoprolol Succinate ER 50 MG TAB.ER.24H PO (08:29)
[2025-01-13] MEDS: Acetaminophen 325 MG TABLET 650 MG PO (08:32)
--- NOTE | 2025-01-13 15:58 | HO.PSYCHPN ---
Subjective Subjective Date of Service: 01/13/25 Reason For Visit: F32.9 Unspecified depressive d/o Interim History: no change, would like to go ahead with ECT tomorrow. per staff, walking up and down [place] yesterday afternoon. not attending groups. depressed. taking meds. slept 8 hours. Mental Status Exam Mental Status Exam Narrative: adequately dressed and groomed, cooperative, somewhat slow. mild PMR. no PMA. speech flattened prosody, nml amount, mildly slowed, nml loudness. thoughts linear and logical. affect constricted. mood depressed. no SI/HI/AVH expressed. Diagnostics Vital Signs (24Hr): Vital Signs - 24 hr 01/12/25 20:00 01/13/25 08:28 Temperature 98.4 F 97.6 F Pulse Rate 70 68 Respiratory Rate 16 18 Blood Pressure 131/86 114/68 Pulse Oximetry 98 96 Oxygen Delivery Method Room Air Room Air BMI result Body Mass Index 38.9 Medications Medications Current Medications Acetaminophen (Acetaminophen 325 Mg Tablet) 650 mg PO Q6H PRN PRN Reason: Headache/Pain, Scale 1-10 Last Admin: 01/13/25 08:32 Dose: 650 mg Al Hydroxide/Mg Hydroxide (Magnesium Hydrox/Alum Hydrox 30 Ml Oral.Susp) 30 ml PO Q6H PRN PRN Reason: Heartburn/Nausea Famotidine (Famotidine 20 Mg Tablet) 20 mg PO BID [facility] Stop: 02/04/25 20:59 Last Admin: 01/13/25 08:29 Dose: 20 mg Fluvoxamine Maleate (Fluvoxamine Maleate 50 Mg Tablet) 100 mg PO BEDTIME [facility] Last Admin: 01/12/25 21:14 Dose: 100 mg Hydroxyzine HCl (Hydroxyzine Hcl 50 Mg Tablet) 50 mg PO 6XD PRN PRN Reason: mod to severe anxiety Ibuprofen (Ibuprofen 400 Mg Tablet) 400 mg PO Q6H PRN PRN Reason: Headache Loratadine (Loratadine 10 Mg Tablet) 10 mg PO DAILY [facility] Last Admin: 01/13/25 08:29 Dose: 10 mg Magnesium Hydroxide (Milk Of Magnesia 30 Ml Oral.Susp) 30 ml PO DAILY PRN PRN Reason: Constipation Melatonin (Melatonin 3 Mg Tablet) 9 mg PO BEDTIME [facility] Last Admin: 01/12/25 21:05 Dose: 9 mg Metoprolol Succinate (Metoprolol Succinate Er 50 Mg Tab.Er.24h) 50 mg PO DAILY [facility]; Protocol Last Admin: 01/13/25 08:29 Dose: 50 mg Naloxone HCl (Naloxone Hcl 0.4 Mg/Ml Vial) 0.04 mg IVPUSH Q5M PRN PRN Reason: Excessive sedation or RR < 8 Nicotine Polacrilex (Nicotine Polacrilex 2 Mg Gum) 4 mg BUCCAL Q2H PRN PRN Reason: Nicotine Cravings Pantoprazole Sodium (Pantoprazole Sodium 20 Mg Tablet.Dr) 20 mg PO BID@0630,1630 [facility] Last Admin: 01/13/25 08:29 Dose: 20 mg Polyethylene Glycol (Polyethylene Glycol 3350 17 Gm Powd.Pack) 17 gm PO DAILY PRN PRN Reason: Constipation Quetiapine Fumarate (Quetiapine Fumarate 400 Mg Tablet) 800 mg PO BEDTIME [facility] Last Admin: 01/12/25 21:11 Dose: 800 mg Trazodone HCl (Trazodone Hcl 50 Mg Tablet) 50 mg PO BEDTIME MRX1 PRN PRN Reason: Insomnia Allergies Allergies Allergy/AdvReac Type Severity Reaction Status Date / Time No Known Allergies Allergy Verified 06/19/23 18:03 Assessment & Plan Assessment & Plan (1) Bipolar I disorder with mixed features: Status: Acute Code(s): F31.9 - Bipolar disorder, unspecified Plan 01/08: DC clozapine and asenapine as not indicated. continue seroquel for sleep. taper and D/C tegretol. continue luvox. ECT clearance. 01/09: EKG WNL. awaiting hospitalist consult. DC tegretol after tomorrow morning. otherwise continue current mgmt. 01/10: pt declined medical eval yesterday evening due to perceived late hour and tiredness; awaiting return of hospitalist. pt appears constricted, hypomotoric, hypersomnolent. planning for ECT weds if hospitalist consult completed by then. otherwise continue current mgmt. 01/11: no medical contraindications for ECT. ECT #1 ordered for tomorrow morning. NPO p MN. pt aware, in agreement. 01/12: poor reaction to etomidate. ECT records requested from [facility] [place]. no ECT given today. continue current mgmt. 01/13: no change. case D/W neelam. ECT tomorrow. collateral obtained from [facility] to guide anesthetic and paralytic choices. continue current mgmt. Reason for continued inpatient stay Substantial Risk for: harm to self and inability to function Time Spent With Patient Time: Total time managing care of this patient today _35___ minutes.
[2025-01-13 20:00] VITALS: BP 123/76; PULSE 71; RESP 16; TEMP 36.9; O2SAT 96
[2025-01-13] MEDS: fluvoxaMINE Maleate 50 MG TABLET 100 MG PO (21:12)
[2025-01-13] MEDS: Melatonin 3 MG TABLET 9 MG PO (21:12)
[2025-01-13] MEDS: Ibuprofen 400 MG TABLET PO (21:12)
[2025-01-13] MEDS: QUEtiapine Fumarate 400 MG TABLET 800 MG PO (21:13)
--- NOTE | 2025-01-13 22:11 | PC.NURSE ---
Patient was reminded at 2100 not to eat or drink past 0000 for ECT in the am.
[2025-01-14] VITALS (11 sets, daily range): BP systolic 98–137; BP diastolic 59–82; PULSE 64–99; RESP 14–18; TEMP 36.3–37.2; O2SAT 94–97
[2025-01-14] MEDS: Lactated Ringers 1,000 ML 100 ML IVCONT (06:35)
--- NOTE | 2025-01-14 07:42 | MHC.SHP ---
Pre-Procedural Eval Section A - 24 Hr Update-Section A only Date of Service: 01/14/25 The patient is an INPATIENT: Yes Changes since office visit: No Cold of Flu in the past 2 weeks, No New Medical Problems and No Changes in Medication The patient has been examined within 24 hours of the surgical procedure. The History & Physical has been completed within 30 days and I have reviewed it.: Yes Section B - Complete if H&P > 30 days Chief Complaint: F32.9 Unspecified depressive d/o Allergies: Allergies Allergy/AdvReac Type Severity Reaction Status Date / Time No Known Allergies Allergy Verified 06/19/23 18:03 Plan I have reviewed the history and physical and performed a pertinent physical examination on my patient. No changes have occurred unless specified. Time Spent With Patient Time: Total time managing care of this patient today ____ minutes.
--- NOTE | 2025-01-14 07:45 | HO.ECTPROC ---
ECT Procedure Note Diagnosis/Treatment Date of Service: 01/14/25 Diagnosis: Major Depressive Disorder Current Treatment Number: 1 Interval Clinical Notes: First ect not completed secondary to inadequate anesthesia/ airway. Records reviewed from [facility] given 200 brevital 200 succ labetolol 20 mg just after tx stimulation tor 30 mg zof 4 mg lma Time: Total time managing care of this patient today ____ minutes. ECT Settings Device: THYMATRON DGx Electrode Placement: Right Unilateral Program/Pulse Width: 0.50 Energy Percent: 65 Seizure Duration By EEG (in seconds): 74 Medications Administration General Anesthetic: Methohexital (200) Ancillary Medications Analgesics: Torodol - Pre ECT (30) Anti-emetics: Zofran - Pre ECT (4) Cardiovascular Medications: Labetolol (20) Airway Management Airway Management: LMA Treatment Recommendations Energy Percent: 50 Notes: lma used did well with this Pt Tolerated Procedure w/o Issue: Yes
[2025-01-14] MEDS: Acetaminophen 325 MG TABLET 650 MG PO ×2 (09:40→21:06)
[2025-01-14] MEDS: Famotidine 20 MG TABLET PO ×2 (09:41→21:05)
[2025-01-14] MEDS: Metoprolol Succinate ER 50 MG TAB.ER.24H PO (09:41)
[2025-01-14] MEDS: Loratadine 10 MG TABLET PO (09:41)
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
--- NOTE | 2025-01-14 09:56 | HO.POSTANES ---
Post Anesthesia Evaluation Post Anesthesia Evaluation Date of Service: 01/14/25 Vital Signs: Vital Signs Temp Pulse Resp BP Pulse Ox O2 Del Method O2 Flow Rate 01/14/25 09:38 97.6 F 67 17 107/65 94 Room Air 01/14/25 09:15 98.4 F 74 16 110/76 94 Room Air 01/14/25 09:00 80 16 110/78 94 Room Air 01/14/25 08:45 99 16 122/82 94 Room Air 01/14/25 08:35 99 16 129/76 96 Nasal Cannula with ETCO2 2 01/14/25 08:30 98 16 137/76 96 Nasal Cannula with ETCO2 2 01/14/25 08:25 92 16 117/82 96 Nasal Cannula with ETCO2 2 01/14/25 08:20 98 F 86 16 124/80 96 Nasal Cannula with ETCO2 2 01/14/25 06:25 97.4 F 68 14 98/72 95 Nasal Cannula with ETCO2 2 01/14/25 05:56 98.9 F 64 14 111/59 L 97 Anesthesia: General Mental Status: Awake Pain Control: Satisfactory Nausea/Vomiting: None Hydration: Adequate Anesthesia-Related Issues: No Anes. Related Issues
[2025-01-14 14:23] LABS: MANUAL DIFF FLAG NO
[2025-01-14 14:26] LABS: Basophils Percent Auto 0.7 % (0-2); Eosinophils Absolute Auto 0.2 X10*3/uL (0.0-0.4); Eosinophils Percent Auto 2.8 % (0-4); Hematocrit 38.8 % (42.0-52.0); Hemoglobin 13.5 g/dl (14.0-18.0); Imm Gran Abs Auto 0.09 X10*3/uL (0.00-0.03); Imm Gran Pct Auto 1.6 % (0.0-0.4); Lymphocytes Absolute Auto 2.1 X10*3/uL (1.2-4.9); Lymphocytes Percent Auto 36.1 % (20-40); Mean Corpuscular HGB Conc 34.8 g/dl (31.0-36.0); Mean Corpuscular Hemoglobin 30.1 pg (27.0-33.0); Mean Corpuscular Volume 86.4 fL (80.0-98.0); Monocytes Absolute Auto 0.3 X10*3/uL (0.1-1.2); Monocytes Percent Auto 5.1 % (2-11); Neutrophils Absolute Auto 3.1 x10*3/uL (2.0-8.3); Neutrophils Percent Auto 53.7 % (45-73); Platelet Count 218 X10*3/uL (160-400); Red Blood Count 4.49 X10*6/uL (4.60-5.80); Red Cell Distribution Width 13.7 % (11.0-16.0); White Blood Count 5.7 X10*3/uL (4.8-10.8)
--- NOTE | 2025-01-14 14:29 | P.PNPSI_ITS ---
Subjective Subjective Date of Service: 01/14/25 Reason For Visit: F32.9 Unspecified depressive d/o Interim History: Met with patient; discussed with team; reviewed chart Patient had ECT today; says he sore but otherwise tolerated. Remains depressed. Denies any SI or AVH. Does not want to talk much; not attending to ADLs Mental Status Exam Mental Status Exam Narrative: adequately dressed, unkempt; cooperative, some psychomotor retardation. speech flattened prosody, nml amount, mildly slowed, nml loudness. thoughts linear and logical. affect more blunted. mood depressed. Denies SI/HI/AVH; judgment insight impaired. Diagnostics Vital Signs (24Hr): Vital Signs - 24 hr 01/13/25 20:00 01/14/25 05:56 01/14/25 06:25 Temperature 98.4 F 98.9 F 97.4 F Pulse Rate 71 64 68 Respiratory Rate 16 14 14 Blood Pressure 123/76 111/59 L 98/72 Pulse Oximetry 96 97 95 Oxygen Delivery Method Room Air Nasal Cannula with ETCO2 Oxygen Flow Rate 2 01/14/25 08:20 01/14/25 08:25 01/14/25 08:30 Temperature 98 F Pulse Rate 86 92 98 Respiratory Rate 16 16 16 Blood Pressure 124/80 117/82 137/76 Pulse Oximetry 96 96 96 Oxygen Delivery Method Nasal Cannula with ETCO2 Nasal Cannula with ETCO2 Nasal Cannula with ETCO2 Oxygen Flow Rate 2 2 2 01/14/25 08:35 01/14/25 08:45 01/14/25 09:00 Temperature Pulse Rate 99 99 80 Respiratory Rate 16 16 16 Blood Pressure 129/76 122/82 110/78 Pulse Oximetry 96 94 94 Oxygen Delivery Method Nasal Cannula with ETCO2 Room Air Room Air Oxygen Flow Rate 2 01/14/25 09:15 01/14/25 09:38 Temperature 98.4 F 97.6 F Pulse Rate 74 67 Respiratory Rate 16 17 Blood Pressure 110/76 107/65 Pulse Oximetry 94 94 Oxygen Delivery Method Room Air Room Air Oxygen Flow Rate BMI result Body Mass Index 38.9 Labs 01/14/25 14:17 01/14/25 14:16 Medications Medications Current Medications Acetaminophen (Acetaminophen 325 Mg Tablet) 650 mg PO Q6H PRN PRN Reason: Headache/Pain, Scale 1-10 Last Admin: 01/14/25 09:40 Dose: 650 mg Al Hydroxide/Mg Hydroxide (Magnesium Hydrox/Alum Hydrox 30 Ml Oral.Susp) 30 ml PO Q6H PRN PRN Reason: Heartburn/Nausea Famotidine (Famotidine 20 Mg Tablet) 20 mg PO BID [facility] Stop: 02/04/25 20:59 Last Admin: 01/14/25 09:41 Dose: 20 mg Fluvoxamine Maleate (Fluvoxamine Maleate 50 Mg Tablet) 100 mg PO BEDTIME [facility] [place] Last Admin: 01/13/25 21:12 Dose: 100 mg Hydroxyzine HCl (Hydroxyzine Hcl 50 Mg Tablet) 50 mg PO 6XD PRN PRN Reason: mod to severe anxiety Ibuprofen (Ibuprofen 400 Mg Tablet) 400 mg PO Q6H PRN PRN Reason: Headache Last Admin: 01/13/25 21:12 Dose: 400 mg Loratadine (Loratadine 10 Mg Tablet) 10 mg PO DAILY [facility] Last Admin: 01/14/25 09:41 Dose: 10 mg Magnesium Hydroxide (Milk Of Magnesia 30 Ml Oral.Susp) 30 ml PO DAILY PRN PRN Reason: Constipation Melatonin (Melatonin 3 Mg Tablet) 9 mg PO BEDTIME [facility] [place] Last Admin: 01/13/25 21:12 Dose: 9 mg Metoprolol Succinate (Metoprolol Succinate Er 50 Mg Tab.Er.24h) 50 mg PO DAILY [facility] [place]; Protocol Last Admin: 01/14/25 09:41 Dose: 50 mg Naloxone HCl (Naloxone Hcl 0.4 Mg/Ml Vial) 0.04 mg IVPUSH Q5M PRN PRN Reason: Excessive sedation or RR < 8 Naloxone HCl (Naloxone Hcl 0.4 Mg/Ml Vial) 0.04 mg IVPUSH Q5M PRN PRN Reason: Excessive sedation or RR < 8 Nicotine Polacrilex (Nicotine Polacrilex 2 Mg Gum) 4 mg BUCCAL Q2H PRN PRN Reason: Nicotine Cravings Pantoprazole Sodium (Pantoprazole Sodium 20 Mg Tablet.Dr) 20 mg PO BID@0630,1630 [facility] [place] Last Admin: 01/14/25 09:37 Dose: Not Given Polyethylene Glycol (Polyethylene Glycol 3350 17 Gm Powd.Pack) 17 gm PO DAILY PRN PRN Reason: Constipation Quetiapine Fumarate (Quetiapine Fumarate 400 Mg Tablet) 800 mg PO BEDTIME [facility] [place] Last Admin: 01/13/25 21:13 Dose: 800 mg Trazodone HCl (Trazodone Hcl 50 Mg Tablet) 50 mg PO BEDTIME MRX1 PRN PRN Reason: Insomnia Allergies Allergies Allergy/AdvReac Type Severity Reaction Status Date / Time No Known Allergies Allergy Verified 06/19/23 18:03 Assessment & Plan Assessment & Plan (1) Bipolar I disorder with mixed features: Status: Acute Code(s): F31.9 - Bipolar disorder, unspecified Plan Hospital course: 01/08: DC clozapine and asenapine as not indicated. continue seroquel for sleep. taper and D/C tegretol. continue luvox. ECT clearance. 01/09: EKG WNL. awaiting hospitalist consult. DC tegretol after tomorrow morning. otherwise continue current mgmt. 01/10: pt declined medical eval yesterday evening due to perceived late hour and tiredness; awaiting return of hospitalist. pt appears constricted, hypomotoric, hypersomnolent. planning for ECT weds if hospitalist consult completed by then. otherwise continue current mgmt. 01/11: no medical contraindications for ECT. ECT #1 ordered for tomorrow morning. NPO p MN. pt aware, in agreement. 01/12: poor reaction to etomidate. ECT records requested from [facility] [place]. no ECT given today. continue current mgmt. 01/13: no change. case D/W neelam. ECT tomorrow. collateral obtained from [facility] [place] to guide anesthetic and paralytic choices. continue current mgmt. 01/14 Patient had ECT today; says he sore but otherwise tolerated. Remains depressed. Denies any SI or AVH. Does not want to talk much; not attending to ADLs -says no longer drooling since Clozaril discontinued Patient educated on: diagnosis, medication risk/benefits and ECT Informed Consent: understands Reason for continued inpatient stay Substantial Risk for: inability to function Time Spent With Patient Time: Total time managing care of this patient today ____ minutes.
[2025-01-14 14:40] LABS: Estimated Average Glucose 111 mg/dL; Hemoglobin A1C 130.4362 umol/L; Hemoglobin A1c % 5.5 % (<6.0); Total Hemoglobin (HGBA1C) 3541.9323 umol/L
[2025-01-14 14:47] LABS: Alanine Aminotransferase 71 U/L (0-40); Albumin Level 4.2 g/dL (3.5-5.0); Alkaline Phosphatase 66 U/L (39-117); Anion Gap 9 (12-20); Aspartate Amino Transferase 37 U/L (5-37); Bilirubin Direct < 0.2 mg/dL (0.0-0.5); Bilirubin Total 0.2 mg/dL (0.0-1.0); Blood Urea Nitrogen 19 mg/dL (9-16); Calcium 9.3 mg/dL (8.4-10.2); Carbon Dioxide 25 mmol/L (22-29); Chloride 106 mmol/L (96-108); Cholesterol 262 mg/dL (<200); Estimated Glomerular Filt Rate > 60; Glucose Random 125 mg/dL (60-115); HDL Cholesterol 42 mg/dL (>40); LDL Cholesterol Calculated 179 mg/dL (<100); Potassium 4.2 mmol/L (3.3-5.1); Sodium 136 mmol/L (135-145); Total Protein 6.6 g/dL (6.5-8.0); Triglycerides 207 mg/dL (<150)
[2025-01-14 15:01] LABS: Free T4 (Free Thyroxine) 0.78 ng/dL (0.71-1.85); Thyroid Stimulating Hormone 0.76 uIU/mL (0.32-4.0)
[2025-01-14 15:15] LABS: Folate 8.6 ng/mL (> or = 4.0); Vitamin B12 240 pg/mL (200-900)
[2025-01-14] MEDS: Pantoprazole Sodium 20 MG TABLET.DR PO (16:41)
[2025-01-14] MEDS: Ibuprofen 400 MG TABLET PO (21:05)
[2025-01-14] MEDS: fluvoxaMINE Maleate 50 MG TABLET 100 MG PO (21:05)
[2025-01-14] MEDS: QUEtiapine Fumarate 400 MG TABLET 800 MG PO (21:05)
[2025-01-14] MEDS: Melatonin 3 MG TABLET 9 MG PO (21:05)
[2025-01-15 09:37] VITALS: BP 123/69; PULSE 79; RESP 17; TEMP 36.3; O2SAT 95
[2025-01-15] MEDS: Famotidine 20 MG TABLET PO ×2 (09:38→21:40)
[2025-01-15] MEDS: Pantoprazole Sodium 20 MG TABLET.DR PO ×2 (09:39→16:58)
[2025-01-15] MEDS: Loratadine 10 MG TABLET PO (09:39)
[2025-01-15] MEDS: Metoprolol Succinate ER 50 MG TAB.ER.24H PO (09:39)
--- NOTE | 2025-01-15 12:16 | P.PNPSI_ITS ---
Subjective Subjective Date of Service: 01/15/25 Reason For Visit: F32.9 Unspecified depressive d/o Subjective Notes: Conditional Voluntary Interim History: Patient was seen and discussed in rounds today. Records and plans were reviewed. He continues to be mostly isolative, flat affect and limited interactions. Affect is nevertheless somewhat improved. He received ECT yesterday. No complaints. No SI. No changes were made today Review of Systems Review of Systems Yes all other systems are reviewed and are negative Mental Status Exam Mental Status Exam Narrative: In today's visit he is alert, oriented and pleasant. Normal speech. Good eye contact. Affect is constricted. No acute signs of psychosis. Cognitively does not exhibit any gross abnormalities. No SI. Judgment is intact Diagnostics Vital Signs (24Hr): Vital Signs - 24 hr 01/14/25 19:25 01/15/25 09:37 Temperature 98.4 F 97.3 F Pulse Rate 68 79 Respiratory Rate 18 17 Blood Pressure 111/74 123/69 Pulse Oximetry 97 95 Oxygen Delivery Method Room Air Room Air BMI result Body Mass Index 38.9 Labs 01/14/25 14:17 01/14/25 14:16 Labs: Laboratory Results - last 48 hr 01/14/25 01/14/25 14:16 14:17 WBC 5.7 RBC 4.49 L Hgb 13.5 L Hct 38.8 L MCV 86.4 MCH 30.1 MCHC 34.8 RDW 13.7 Plt Count 218 D MPV 9.0 L Immature Gran % (Auto) 1.6 H Neut % (Auto) 53.7 Lymph % (Auto) 36.1 [place] % (Auto) 5.1 Eos % (Auto) 2.8 Baso % (Auto) 0.7 Lymph # (Auto) 2.1 [place] # (Auto) 0.3 Eos # (Auto) 0.2 Baso # (Auto) 0.0 Abs Immat Gran (auto) 0.09 H Absolute Neuts (auto) 3.1 Absolute Nucleated RBC 0.000 Nucleated RBC % (auto) 0.0 Sodium 136 Potassium 4.2 Chloride 106 Carbon Dioxide 25 Anion Gap 9 L BUN 19 H Creatinine 1.25 Estim Creat Clear Calc 103.0 Estimated GFR > 60 Random Glucose 125 H Estimat Average Glucose 111 Hemoglobin A1c % 5.5 Calcium 9.3 Total Bilirubin 0.2 Direct Bilirubin < 0.2 AST 37 ALT 71 H Alkaline Phosphatase 66 Total Protein 6.6 Albumin 4.2 Triglycerides 207 H Cholesterol 262 H LDL Cholesterol, Calc 179 H HDL Cholesterol 42 Vitamin B12 240 Folate 8.6 TSH 0.76 Free T4 0.78 Medications Medications Current Medications Acetaminophen (Acetaminophen 325 Mg Tablet) 650 mg PO Q6H PRN PRN Reason: Headache/Pain, Scale 1-10 Last Admin: 01/14/25 21:06 Dose: 650 mg Al Hydroxide/Mg Hydroxide (Magnesium Hydrox/Alum Hydrox 30 Ml Oral.Susp) 30 ml PO Q6H PRN PRN Reason: Heartburn/Nausea Famotidine (Famotidine 20 Mg Tablet) 20 mg PO BID [facility] Stop: 02/04/25 20:59 Last Admin: 01/15/25 09:38 Dose: 20 mg Fluvoxamine Maleate (Fluvoxamine Maleate 50 Mg Tablet) 100 mg PO BEDTIME [facility] Last Admin: 01/14/25 21:05 Dose: 100 mg Hydroxyzine HCl (Hydroxyzine Hcl 50 Mg Tablet) 50 mg PO 6XD PRN PRN Reason: mod to severe anxiety Ibuprofen (Ibuprofen 400 Mg Tablet) 400 mg PO Q6H PRN PRN Reason: Headache Last Admin: 01/14/25 21:05 Dose: 400 mg Loratadine (Loratadine 10 Mg Tablet) 10 mg PO DAILY [facility] Last Admin: 01/15/25 09:39 Dose: 10 mg Magnesium Hydroxide (Milk Of Magnesia 30 Ml Oral.Susp) 30 ml PO DAILY PRN PRN Reason: Constipation Melatonin (Melatonin 3 Mg Tablet) 9 mg PO BEDTIME [facility] Last Admin: 01/14/25 21:05 Dose: 9 mg Metoprolol Succinate (Metoprolol Succinate Er 50 Mg Tab.Er.24h) 50 mg PO DAILY [facility]; Protocol Last Admin: 01/15/25 09:39 Dose: 50 mg Naloxone HCl (Naloxone Hcl 0.4 Mg/Ml Vial) 0.04 mg IVPUSH Q5M PRN PRN Reason: Excessive sedation or RR < 8 Naloxone HCl (Naloxone Hcl 0.4 Mg/Ml Vial) 0.04 mg IVPUSH Q5M PRN PRN Reason: Excessive sedation or RR < 8 Nicotine Polacrilex (Nicotine Polacrilex 2 Mg Gum) 4 mg BUCCAL Q2H PRN PRN Reason: Nicotine Cravings Pantoprazole Sodium (Pantoprazole Sodium 20 Mg Tablet.Dr) 20 mg PO BID@0630,1630 [facility] Last Admin: 01/15/25 09:39 Dose: 20 mg Polyethylene Glycol (Polyethylene Glycol 3350 17 Gm Powd.Pack) 17 gm PO DAILY PRN PRN Reason: Constipation Quetiapine Fumarate (Quetiapine Fumarate 400 Mg Tablet) 800 mg PO BEDTIME [facility] Last Admin: 01/14/25 21:05 Dose: 800 mg Trazodone HCl (Trazodone Hcl 50 Mg Tablet) 50 mg PO BEDTIME MRX1 PRN PRN Reason: Insomnia Allergies Allergies Allergy/AdvReac Type Severity Reaction Status Date / Time No Known Allergies Allergy Verified 06/19/23 18:03 Assessment & Plan Assessment & Plan (1) Bipolar I disorder with mixed features: Status: Acute Code(s): F31.9 - Bipolar disorder, unspecified Plan Hospital course: 01/08: DC clozapine and asenapine as not indicated. continue seroquel for sleep. taper and D/C tegretol. continue luvox. ECT clearance. 01/09: EKG WNL. awaiting hospitalist consult. DC tegretol after tomorrow morning. otherwise continue current mgmt. 01/10: pt declined medical eval yesterday evening due to perceived late hour and tiredness; awaiting return of hospitalist. pt appears constricted, hypomotoric, hypersomnolent. planning for ECT weds if hospitalist consult completed by then. otherwise continue current mgmt. 01/11: no medical contraindications for ECT. ECT #1 ordered for tomorrow morning. NPO p MN. pt aware, in agreement. 01/12: poor reaction to etomidate. ECT records requested from [facility] [place]. no ECT given today. continue current mgmt. 01/13: no change. case D/W neelam. ECT tomorrow. collateral obtained from [facility] [place] to guide anesthetic and paralytic choices. continue current mgmt. 01/14 Patient had ECT today; says he sore but otherwise tolerated. Remains depressed. Denies any SI or AVH. Does not want to talk much; not attending to ADLs -says no longer drooling since Clozaril discontinued 01/15: Continue current regimen and plans Reason for continued inpatient stay Substantial Risk for: med/psych decompensation Time Spent With Patient Time: Total time managing care of this patient today ____ minutes.
[2025-01-15 19:45] VITALS: BP 140/86; PULSE 65; RESP 18; TEMP 36.4; O2SAT 98
[2025-01-15] MEDS: QUEtiapine Fumarate 400 MG TABLET 800 MG PO (21:39)
[2025-01-15] MEDS: Melatonin 3 MG TABLET 9 MG PO (21:39)
[2025-01-15] MEDS: fluvoxaMINE Maleate 50 MG TABLET 100 MG PO (21:40)
[2025-01-16 10:00] VITALS: BP 127/72; PULSE 75; RESP 17; TEMP 36.9; O2SAT 96
--- NOTE | 2025-01-16 10:03 | HO.PSYCHPN ---
Subjective Subjective Date of Service: 01/16/25 Reason For Visit: F32.9 Unspecified depressive d/o Subjective Notes: Conditional Voluntary Interim History: Patient was seen and discussed in rounds today. Records and plans were reviewed. He continues to endorse depression. He is more social and visible. Better eye contact and generally brighter affect. No SI. Eating and sleeping adequately. No changes were made today Review of Systems Review of Systems Yes all other systems are reviewed and are negative Mental Status Exam Mental Status Exam Narrative: In today's visit he is alert, oriented and pleasant. Normal speech. Good eye contact. Affect is brighter. No acute signs of psychosis. Cognitively does not exhibit any gross abnormalities. No SI. Judgment is intact Diagnostics Vital Signs (24Hr): Vital Signs - 24 hr 01/15/25 19:45 Temperature 97.6 F Pulse Rate 65 Respiratory Rate 18 Blood Pressure 140/86 H Pulse Oximetry 98 Oxygen Delivery Method Room Air BMI result Body Mass Index 38.9 Labs 01/14/25 14:17 01/14/25 14:16 Labs: Laboratory Results - last 48 hr 01/14/25 01/14/25 14:16 14:17 WBC 5.7 RBC 4.49 L Hgb 13.5 L Hct 38.8 L MCV 86.4 MCH 30.1 MCHC 34.8 RDW 13.7 Plt Count 218 D MPV 9.0 L Immature Gran % (Auto) 1.6 H Neut % (Auto) 53.7 Lymph % (Auto) 36.1 [place] % (Auto) 5.1 Eos % (Auto) 2.8 Baso % (Auto) 0.7 Lymph # (Auto) 2.1 [place] # (Auto) 0.3 Eos # (Auto) 0.2 Baso # (Auto) 0.0 Abs Immat Gran (auto) 0.09 H Absolute Neuts (auto) 3.1 Absolute Nucleated RBC 0.000 Nucleated RBC % (auto) 0.0 Sodium 136 Potassium 4.2 Chloride 106 Carbon Dioxide 25 Anion Gap 9 L BUN 19 H Creatinine 1.25 Estim Creat Clear Calc 103.0 Estimated GFR > 60 Random Glucose 125 H Estimat Average Glucose 111 Hemoglobin A1c % 5.5 Calcium 9.3 Total Bilirubin 0.2 Direct Bilirubin < 0.2 AST 37 ALT 71 H Alkaline Phosphatase 66 Total Protein 6.6 Albumin 4.2 Triglycerides 207 H Cholesterol 262 H LDL Cholesterol, Calc 179 H HDL Cholesterol 42 Vitamin B12 240 Folate 8.6 TSH 0.76 Free T4 0.78 Medications Medications Current Medications Acetaminophen (Acetaminophen 325 Mg Tablet) 650 mg PO Q6H PRN PRN Reason: Headache/Pain, Scale 1-10 Last Admin: 01/14/25 21:06 Dose: 650 mg Al Hydroxide/Mg Hydroxide (Magnesium Hydrox/Alum Hydrox 30 Ml Oral.Susp) 30 ml PO Q6H PRN PRN Reason: Heartburn/Nausea Famotidine (Famotidine 20 Mg Tablet) 20 mg PO BID [facility] Stop: 02/04/25 20:59 Last Admin: 01/15/25 21:40 Dose: 20 mg Fluvoxamine Maleate (Fluvoxamine Maleate 50 Mg Tablet) 100 mg PO BEDTIME [facility] Last Admin: 01/15/25 21:40 Dose: 100 mg Hydroxyzine HCl (Hydroxyzine Hcl 50 Mg Tablet) 50 mg PO 6XD PRN PRN Reason: mod to severe anxiety Ibuprofen (Ibuprofen 400 Mg Tablet) 400 mg PO Q6H PRN PRN Reason: Headache Last Admin: 01/14/25 21:05 Dose: 400 mg Loratadine (Loratadine 10 Mg Tablet) 10 mg PO DAILY [facility] Last Admin: 01/15/25 09:39 Dose: 10 mg Magnesium Hydroxide (Milk Of Magnesia 30 Ml Oral.Susp) 30 ml PO DAILY PRN PRN Reason: Constipation Melatonin (Melatonin 3 Mg Tablet) 9 mg PO BEDTIME [facility] Last Admin: 01/15/25 21:39 Dose: 9 mg Metoprolol Succinate (Metoprolol Succinate Er 50 Mg Tab.Er.24h) 50 mg PO DAILY [facility]; Protocol Last Admin: 01/15/25 09:39 Dose: 50 mg Naloxone HCl (Naloxone Hcl 0.4 Mg/Ml Vial) 0.04 mg IVPUSH Q5M PRN PRN Reason: Excessive sedation or RR < 8 Naloxone HCl (Naloxone Hcl 0.4 Mg/Ml Vial) 0.04 mg IVPUSH Q5M PRN PRN Reason: Excessive sedation or RR < 8 Nicotine Polacrilex (Nicotine Polacrilex 2 Mg Gum) 4 mg BUCCAL Q2H PRN PRN Reason: Nicotine Cravings Pantoprazole Sodium (Pantoprazole Sodium 20 Mg Tablet.Dr) 20 mg PO BID@0630,1630 [facility] Last Admin: 01/15/25 16:58 Dose: 20 mg Polyethylene Glycol (Polyethylene Glycol 3350 17 Gm Powd.Pack) 17 gm PO DAILY PRN PRN Reason: Constipation Quetiapine Fumarate (Quetiapine Fumarate 400 Mg Tablet) 800 mg PO BEDTIME [facility] Last Admin: 01/15/25 21:39 Dose: 800 mg Trazodone HCl (Trazodone Hcl 50 Mg Tablet) 50 mg PO BEDTIME MRX1 PRN PRN Reason: Insomnia Allergies Allergies Allergy/AdvReac Type Severity Reaction Status Date / Time No Known Allergies Allergy Verified 06/19/23 18:03 Assessment & Plan Assessment & Plan (1) Bipolar I disorder with mixed features: Status: Acute Code(s): F31.9 - Bipolar disorder, unspecified Plan Hospital course: 01/08: DC clozapine and asenapine as not indicated. continue seroquel for sleep. taper and D/C tegretol. continue luvox. ECT clearance. 01/09: EKG WNL. awaiting hospitalist consult. DC tegretol after tomorrow morning. otherwise continue current mgmt. 01/10: pt declined medical eval yesterday evening due to perceived late hour and tiredness; awaiting return of hospitalist. pt appears constricted, hypomotoric, hypersomnolent. planning for ECT weds if hospitalist consult completed by then. otherwise continue current mgmt. 01/11: no medical contraindications for ECT. ECT #1 ordered for tomorrow morning. NPO p MN. pt aware, in agreement. 01/12: poor reaction to etomidate. ECT records requested from [facility] [place]. no ECT given today. continue current mgmt. 01/13: no change. case D/W neelam. ECT tomorrow. collateral obtained from [facility] [place] to guide anesthetic and paralytic choices. continue current mgmt. 01/14 Patient had ECT today; says he sore but otherwise tolerated. Remains depressed. Denies any SI or AVH. Does not want to talk much; not attending to ADLs -says no longer drooling since Clozaril discontinued 01/15: Continue current regimen and plans 01/16: Continue current regimen and plans Reason for continued inpatient stay Substantial Risk for: med/psych decompensation Time Spent With Patient Time: Total time managing care of this patient today ____ minutes.
[2025-01-16 10:06] VITALS: BP 127/72; PULSE 75
[2025-01-16] MEDS: Loratadine 10 MG TABLET PO (10:06)
[2025-01-16] MEDS: Metoprolol Succinate ER 50 MG TAB.ER.24H PO (10:06)
[2025-01-16] MEDS: Pantoprazole Sodium 20 MG TABLET.DR PO ×2 (10:07→16:32)
[2025-01-16] MEDS: Famotidine 20 MG TABLET PO ×2 (10:07→20:22)
[2025-01-16 20:00] VITALS: BP 137/79; PULSE 60; RESP 16; TEMP 36.5; O2SAT 98
[2025-01-16] MEDS: Melatonin 3 MG TABLET 9 MG PO (20:21)
[2025-01-16] MEDS: fluvoxaMINE Maleate 50 MG TABLET 100 MG PO (20:22)
[2025-01-16] MEDS: QUEtiapine Fumarate 400 MG TABLET 800 MG PO (20:22)
[2025-01-17] VITALS (9 sets, daily range): BP systolic 104–157; BP diastolic 59–98; PULSE 61–96; RESP 11–18; TEMP 36.1–37.1; O2SAT 94–98
[2025-01-17] MEDS: Lactated Ringers 1,000 ML 100 ML IVCONT (07:17)
--- NOTE | 2025-01-17 08:11 | MHC.SHP ---
Pre-Procedural Eval Section A - 24 Hr Update-Section A only Date of Service: 01/17/25 The patient is an INPATIENT: Yes Changes since office visit: Yes Patient answered all questions; No Cold of Flu in the past 2 weeks, No New Medical Problems and No Changes in Medication The patient has been examined within 24 hours of the surgical procedure. The History & Physical has been completed within 30 days and I have reviewed it.: Yes Section B - Complete if H&P > 30 days Chief Complaint: F32.9 Unspecified depressive d/o Allergies: Allergies Allergy/AdvReac Type Severity Reaction Status Date / Time No Known Allergies Allergy Verified 06/19/23 18:03 Plan I have reviewed the history and physical and performed a pertinent physical examination on my patient. No changes have occurred unless specified. Time Spent With Patient Time: Total time managing care of this patient today ____ minutes.
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
--- NOTE | 2025-01-17 10:20 | HO.ECTPROC ---
ECT Procedure Note Diagnosis/Treatment Date of Service: 01/17/25 Diagnosis: Major Depressive Disorder Previous ECT Date: 01/14/25 Current Treatment Number: 2 Treatment: Series Interval Clinical Notes: no change in presentation, no improvement Time: Total time managing care of this patient today __30__ minutes. ECT Settings Device: THYMATRON DGx Electrode Placement: Right Unilateral Program/Pulse Width: 0.50 Energy Percent: 65 Seizure Duration By EEG (in seconds): 57 Medications Administration General Anesthetic: Methohexital (200) Muscle Relaxant: Succinylcholine (200) Ancillary Medications Analgesics: Torodol - Pre ECT (30) Anti-emetics: Zofran - Pre ECT (4) Cardiovascular Medications: Labetolol (20) Airway Management Airway Management: LMA Treatment Recommendations No Changes Recommended: No change Notes: continue series Pt Tolerated Procedure w/o Issue: Yes
[2025-01-17] MEDS: Pantoprazole Sodium 20 MG TABLET.DR PO ×2 (10:36→17:35)
[2025-01-17] MEDS: Metoprolol Succinate ER 50 MG TAB.ER.24H PO (10:36)
[2025-01-17] MEDS: Loratadine 10 MG TABLET PO (10:37)
[2025-01-17] MEDS: Famotidine 20 MG TABLET PO ×2 (10:37→22:12)
--- NOTE | 2025-01-17 16:08 | HO.PSYCHPN ---
Subjective Subjective Date of Service: 01/17/25 Reason For Visit: F32.9 Unspecified depressive d/o Interim History: tired, in bed after ECT. no changes, no issues. per staff, no issues. Mental Status Exam Mental Status Exam Narrative: adequately dressed and groomed, cooperative, somewhat slow. mild PMR. no PMA. speech flattened prosody, decr amount, mildly slowed, nml loudness. thoughts linear and logical. affect constricted. mood depressed. no SI/HI/AVH expressed. Diagnostics Vital Signs (24Hr): Vital Signs - 24 hr 01/16/25 20:00 01/17/25 07:12 01/17/25 09:10 Temperature 97.7 F 97 F 98 F Pulse Rate 60 72 96 Respiratory Rate 16 16 17 Blood Pressure 137/79 104/70 123/80 Pulse Oximetry 98 96 98 Oxygen Delivery Method Room Air Room Air Nasal Cannula with ETCO2 Oxygen Flow Rate 3 01/17/25 09:15 01/17/25 09:20 01/17/25 09:25 Temperature Pulse Rate 87 81 80 Respiratory Rate 18 14 11 L Blood Pressure 143/81 H 138/80 132/80 Pulse Oximetry 94 95 95 Oxygen Delivery Method Nasal Cannula with ETCO2 Nasal Cannula with ETCO2 Room Air Oxygen Flow Rate 2 2 01/17/25 09:40 01/17/25 09:55 01/17/25 10:20 Temperature 98 F 98.7 F Pulse Rate 67 69 91 Respiratory Rate 13 16 18 Blood Pressure 127/72 121/69 157/98 H Pulse Oximetry 94 95 Oxygen Delivery Method Room Air Room Air Oxygen Flow Rate BMI result Body Mass Index 38.9 Labs 01/14/25 14:17 01/14/25 14:16 Medications Medications Current Medications Acetaminophen (Acetaminophen 325 Mg Tablet) 650 mg PO Q6H PRN PRN Reason: Headache/Pain, Scale 1-10 Last Admin: 01/14/25 21:06 Dose: 650 mg Al Hydroxide/Mg Hydroxide (Magnesium Hydrox/Alum Hydrox 30 Ml Oral.Susp) 30 ml PO Q6H PRN PRN Reason: Heartburn/Nausea Famotidine (Famotidine 20 Mg Tablet) 20 mg PO BID [facility] Stop: 02/04/25 20:59 Last Admin: 01/17/25 10:39 Dose: Not Given Fluvoxamine Maleate (Fluvoxamine Maleate 50 Mg Tablet) 100 mg PO BEDTIME [facility] Last Admin: 01/16/25 20:22 Dose: 100 mg Hydroxyzine HCl (Hydroxyzine Hcl 50 Mg Tablet) 50 mg PO 6XD PRN PRN Reason: mod to severe anxiety Ibuprofen (Ibuprofen 400 Mg Tablet) 400 mg PO Q6H PRN PRN Reason: Headache Last Admin: 01/14/25 21:05 Dose: 400 mg Loratadine (Loratadine 10 Mg Tablet) 10 mg PO DAILY [facility] Last Admin: 01/17/25 10:39 Dose: Not Given Magnesium Hydroxide (Milk Of Magnesia 30 Ml Oral.Susp) 30 ml PO DAILY PRN PRN Reason: Constipation Melatonin (Melatonin 3 Mg Tablet) 9 mg PO BEDTIME [facility] Last Admin: 01/16/25 20:21 Dose: 9 mg Metoprolol Succinate (Metoprolol Succinate Er 50 Mg Tab.Er.24h) 50 mg PO DAILY [facility]; Protocol Last Admin: 01/17/25 10:39 Dose: Not Given Nicotine Polacrilex (Nicotine Polacrilex 2 Mg Gum) 4 mg BUCCAL Q2H PRN PRN Reason: Nicotine Cravings Pantoprazole Sodium (Pantoprazole Sodium 20 Mg Tablet.Dr) 20 mg PO BID@0630,1630 [facility] Last Admin: 01/17/25 10:39 Dose: Not Given Polyethylene Glycol (Polyethylene Glycol 3350 17 Gm Powd.Pack) 17 gm PO DAILY PRN PRN Reason: Constipation Quetiapine Fumarate (Quetiapine Fumarate 400 Mg Tablet) 800 mg PO BEDTIME [facility] Last Admin: 01/16/25 20:22 Dose: 800 mg Trazodone HCl (Trazodone Hcl 50 Mg Tablet) 50 mg PO BEDTIME MRX1 PRN PRN Reason: Insomnia Allergies Allergies Allergy/AdvReac Type Severity Reaction Status Date / Time No Known Allergies Allergy Verified 06/19/23 18:03 Assessment & Plan Assessment & Plan (1) Bipolar I disorder with mixed features: Status: Acute Code(s): F31.9 - Bipolar disorder, unspecified Plan Hospital course: 01/08: DC clozapine and asenapine as not indicated. continue seroquel for sleep. taper and D/C tegretol. continue luvox. ECT clearance. 01/09: EKG WNL. awaiting hospitalist consult. DC tegretol after tomorrow morning. otherwise continue current mgmt. 01/10: pt declined medical eval yesterday evening due to perceived late hour and tiredness; awaiting return of hospitalist. pt appears constricted, hypomotoric, hypersomnolent. planning for ECT weds if hospitalist consult completed by then. otherwise continue current mgmt. 01/11: no medical contraindications for ECT. ECT #1 ordered for tomorrow morning. NPO p MN. pt aware, in agreement. 01/12: poor reaction to etomidate. ECT records requested from [facility] [place]. no ECT given today. continue current mgmt. 01/13: no change. case D/W neelam. ECT tomorrow. collateral obtained from [facility] [place] to guide anesthetic and paralytic choices. continue current mgmt. 01/14 Patient had ECT today; says he sore but otherwise tolerated. Remains depressed. Denies any SI or AVH. Does not want to talk much; not attending to ADLs -says no longer drooling since Clozaril discontinued 01/15: Continue current regimen and plans 01/16: Continue current regimen and plans 01/17: ECT #2 completed today, no issues. continue current mgmt. Reason for continued inpatient stay Substantial Risk for: harm to self and inability to function Time Spent With Patient Time: Total time managing care of this patient today ____ minutes.
[2025-01-17] MEDS: fluvoxaMINE Maleate 50 MG TABLET 100 MG PO (22:12)
[2025-01-17] MEDS: QUEtiapine Fumarate 400 MG TABLET 800 MG PO (22:12)
[2025-01-17] MEDS: Melatonin 3 MG TABLET 9 MG PO (22:12)
[2025-01-18 07:20] VITALS: BP 110/63; PULSE 67; RESP 16; TEMP 36.9; O2SAT 96
[2025-01-18 08:45] VITALS: BP 110/63
[2025-01-18] MEDS: Loratadine 10 MG TABLET PO (08:45)
[2025-01-18] MEDS: Pantoprazole Sodium 20 MG TABLET.DR PO ×2 (08:45→16:35)
[2025-01-18] MEDS: Metoprolol Succinate ER 50 MG TAB.ER.24H PO (08:45)
[2025-01-18] MEDS: Famotidine 20 MG TABLET PO ×2 (08:45→21:20)
[2025-01-18 19:46] VITALS: BP 141/90; PULSE 68; RESP 18; TEMP 36.5; O2SAT 97
--- NOTE | 2025-01-18 20:58 | P.PNPSI_ITS ---
Subjective Subjective Date of Service: 01/18/25 Reason For Visit: F32.9 Unspecified depressive d/o Interim History: reports rough night for sleep. otherwise no change in presentation. aware of ECT tomorrow. per staff, depressed. +SI, no plan. pacing. taking meds. reading in his room. Mental Status Exam Mental Status Exam Narrative: adequately dressed and groomed, cooperative, somewhat slow. mild PMR. no PMA. speech flattened prosody, decr amount, mildly slowed, nml loudness. thoughts linear and logical. affect constricted. mood depressed. no SI/HI/AVH expressed. Diagnostics Vital Signs (24Hr): Vital Signs - 24 hr 01/18/25 07:20 01/18/25 08:45 01/18/25 19:46 Temperature 98.4 F 97.7 F Pulse Rate 67 68 Respiratory Rate 16 18 Blood Pressure 110/63 110/63 141/90 H Pulse Oximetry 96 97 Oxygen Delivery Method Room Air Room Air BMI result Body Mass Index 38.9 Labs 01/14/25 14:17 01/14/25 14:16 Medications Medications Current Medications Acetaminophen (Acetaminophen 325 Mg Tablet) 650 mg PO Q6H PRN PRN Reason: Headache/Pain, Scale 1-10 Last Admin: 01/14/25 21:06 Dose: 650 mg Al Hydroxide/Mg Hydroxide (Magnesium Hydrox/Alum Hydrox 30 Ml Oral.Susp) 30 ml PO Q6H PRN PRN Reason: Heartburn/Nausea Famotidine (Famotidine 20 Mg Tablet) 20 mg PO BID [facility] Stop: 02/04/25 20:59 Last Admin: 01/18/25 08:45 Dose: 20 mg Fluvoxamine Maleate (Fluvoxamine Maleate 50 Mg Tablet) 100 mg PO BEDTIME [facility] Last Admin: 01/17/25 22:12 Dose: 100 mg Hydroxyzine HCl (Hydroxyzine Hcl 50 Mg Tablet) 50 mg PO 6XD PRN PRN Reason: mod to severe anxiety Ibuprofen (Ibuprofen 400 Mg Tablet) 400 mg PO Q6H PRN PRN Reason: Headache Last Admin: 01/14/25 21:05 Dose: 400 mg Loratadine (Loratadine 10 Mg Tablet) 10 mg PO DAILY [facility] Last Admin: 01/18/25 08:45 Dose: 10 mg Magnesium Hydroxide (Milk Of Magnesia 30 Ml Oral.Susp) 30 ml PO DAILY PRN PRN Reason: Constipation Melatonin (Melatonin 3 Mg Tablet) 9 mg PO BEDTIME [facility] Last Admin: 01/17/25 22:12 Dose: 9 mg Metoprolol Succinate (Metoprolol Succinate Er 50 Mg Tab.Er.24h) 50 mg PO DAILY [facility]; Protocol Last Admin: 01/18/25 08:45 Dose: 50 mg Nicotine Polacrilex (Nicotine Polacrilex 2 Mg Gum) 4 mg BUCCAL Q2H PRN PRN Reason: Nicotine Cravings Pantoprazole Sodium (Pantoprazole Sodium 20 Mg Tablet.Dr) 20 mg PO BID@0630,1630 [facility] Last Admin: 01/18/25 16:35 Dose: 20 mg Polyethylene Glycol (Polyethylene Glycol 3350 17 Gm Powd.Pack) 17 gm PO DAILY PRN PRN Reason: Constipation Quetiapine Fumarate (Quetiapine Fumarate 400 Mg Tablet) 800 mg PO BEDTIME [facility] Last Admin: 01/17/25 22:12 Dose: 800 mg Trazodone HCl (Trazodone Hcl 50 Mg Tablet) 50 mg PO BEDTIME MRX1 PRN PRN Reason: Insomnia Allergies Allergies Allergy/AdvReac Type Severity Reaction Status Date / Time No Known Allergies Allergy Verified 06/19/23 18:03 Assessment & Plan Assessment & Plan (1) Bipolar I disorder with mixed features: Status: Acute Code(s): F31.9 - Bipolar disorder, unspecified Plan Hospital course: 01/08: DC clozapine and asenapine as not indicated. continue seroquel for sleep. taper and D/C tegretol. continue luvox. ECT clearance. 01/09: EKG WNL. awaiting hospitalist consult. DC tegretol after tomorrow morning. otherwise continue current mgmt. 01/10: pt declined medical eval yesterday evening due to perceived late hour and tiredness; awaiting return of hospitalist. pt appears constricted, hypomotoric, hypersomnolent. planning for ECT weds if hospitalist consult completed by then. otherwise continue current mgmt. 01/11: no medical contraindications for ECT. ECT #1 ordered for tomorrow morning. NPO p MN. pt aware, in agreement. 01/12: poor reaction to etomidate. [place] [facility] today. continue current mgmt. 01/13: no change. case D/W neelam. ECT tomorrow. [place] [facility] [place] and paralytic choices. continue current mgmt. 01/14 Patient had ECT today; says he sore but otherwise tolerated. Remains depressed. Denies any SI or AVH. Does not want to talk much; not attending to ADLs -says no longer drooling since Clozaril discontinued 01/15: Continue current regimen and plans 01/16: Continue current regimen and plans 01/17: ECT #2 completed today, no issues. continue current mgmt. 01/18: no change in presentation. ECT #3 tomorrow. T/C addition of psychostimulant such as modafanil. NPO p MN. Reason for continued inpatient stay Substantial Risk for: harm to self and inability to function Time Spent With Patient Time: Total time managing care of this patient today __25__ minutes.
[2025-01-18] MEDS: QUEtiapine Fumarate 400 MG TABLET 800 MG PO (21:19)
[2025-01-18] MEDS: Melatonin 3 MG TABLET 9 MG PO (21:20)
[2025-01-18] MEDS: fluvoxaMINE Maleate 50 MG TABLET 100 MG PO (21:20)
[2025-01-18] MEDS: Acetaminophen 325 MG TABLET 650 MG PO (21:53)
[2025-01-19] VITALS (11 sets, daily range): BP systolic 114–161; BP diastolic 64–89; PULSE 65–97; RESP 14–18; TEMP 36.1–37.3; O2SAT 95–97; BMI 38.9
[2025-01-19] MEDS: Lactated Ringers 1,000 ML 50 ML IVCONT (06:36)
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
--- NOTE | 2025-01-19 06:56 | MHC.SHP ---
Pre-Procedural Eval Section A - 24 Hr Update-Section A only Date of Service: 01/19/25 The patient is an INPATIENT: Yes Changes since office visit: Yes Patient answered all questions; No Cold of Flu in the past 2 weeks, No New Medical Problems and No Changes in Medication The patient has been examined within 24 hours of the surgical procedure. The History & Physical has been completed within 30 days and I have reviewed it.: Yes Section B - Complete if H&P > 30 days Chief Complaint: F32.9 Unspecified depressive d/o Allergies: Allergies Allergy/AdvReac Type Severity Reaction Status Date / Time No Known Allergies Allergy Verified 06/19/23 18:03 Plan I have reviewed the history and physical and performed a pertinent physical examination on my patient. No changes have occurred unless specified. Time Spent With Patient Time: Total time managing care of this patient today ____ minutes.
--- NOTE | 2025-01-19 07:50 | HO.ECTPROC ---
ECT Procedure Note Diagnosis/Treatment Date of Service: 01/19/25 Diagnosis: Major Depressive Disorder Previous ECT Date: 01/17/25 Current Treatment Number: 3 Treatment: Series Interval Clinical Notes: no change in presentation, no improvement Time: Total time managing care of this patient today __40__ minutes. ECT Settings Device: THYMATRON DGx Electrode Placement: Right Unilateral Program/Pulse Width: 0.50 Energy Percent: 65 Seizure Duration By EEG (in seconds): 65 (EEG paper ran out at 65 seconds, propofol 30 was pushed about 15-20 seconds later.) Medications Administration General Anesthetic: Methohexital (200) Muscle Relaxant: Succinylcholine (200) Ancillary Medications Analgesics: Torodol - Pre ECT (30) Anti-emetics: Zofran - Pre ECT (4) Cardiovascular Medications: Labetolol (10) Miscillaneous Medications: Propofol (30) Airway Management Airway Management: LMA Treatment Recommendations No Changes Recommended: No change Pt Tolerated Procedure w/o Issue: Yes
[2025-01-19] MEDS: Pantoprazole Sodium 20 MG TABLET.DR PO ×2 (09:05→17:03)
[2025-01-19] MEDS: Metoprolol Succinate ER 50 MG TAB.ER.24H PO (09:05)
[2025-01-19] MEDS: Loratadine 10 MG TABLET PO (09:05)
[2025-01-19] MEDS: Famotidine 20 MG TABLET PO ×2 (09:05→21:07)
--- NOTE | 2025-01-19 13:04 | HO.PSYCHPN ---
Subjective Subjective Date of Service: 01/19/25 Reason For Visit: F32.9 Unspecified depressive d/o Interim History: no issues with ECT. no GOETZ or soreness after. no change in mood. poor sleep due to roommate's CPAP. agreeable to modafanil augmentation, to start tomorrow. per staff, taking meds. isolative. withdrawn. passive SI without plan. slept 7 hours. Mental Status Exam Mental Status Exam Narrative: adequately dressed and groomed, cooperative, somewhat slow. mild PMR. no PMA. speech flattened prosody, decr amount, mildly slowed, nml loudness. thoughts linear and logical. affect constricted. mood depressed. no SI/HI/AVH expressed. Diagnostics Vital Signs (24Hr): Vital Signs - 24 hr 01/18/25 19:46 01/19/25 05:48 01/19/25 06:17 Temperature 97.7 F 97.9 F 97 F Pulse Rate 68 79 66 Respiratory Rate 18 14 16 Blood Pressure 141/90 H 115/64 125/86 Pulse Oximetry 97 96 95 Oxygen Delivery Method Room Air Room Air Oxygen Flow Rate 01/19/25 07:30 01/19/25 07:35 01/19/25 07:40 Temperature 97.5 F Pulse Rate 87 97 97 Respiratory Rate 16 16 16 Blood Pressure 158/89 H 161/87 H 139/73 Pulse Oximetry 97 97 95 Oxygen Delivery Method Nasal Cannula with ETCO2 Nasal Cannula with ETCO2 Nasal Cannula with ETCO2 Oxygen Flow Rate 4 4 4 01/19/25 07:45 01/19/25 08:00 01/19/25 09:00 Temperature 97.0 F 99.1 F Pulse Rate 97 92 65 Respiratory Rate 16 16 17 Blood Pressure 150/75 H 144/72 H 123/74 Pulse Oximetry 97 95 97 Oxygen Delivery Method Nasal Cannula with ETCO2 Room Air Room Air Oxygen Flow Rate 4 01/19/25 09:05 01/19/25 12:37 Temperature 98.4 F Pulse Rate 65 Respiratory Rate Blood Pressure 123/74 Pulse Oximetry Oxygen Delivery Method Oxygen Flow Rate BMI result Body Mass Index 38.9 Labs 01/14/25 14:17 01/14/25 14:16 Medications Medications Current Medications Acetaminophen (Acetaminophen 325 Mg Tablet) 650 mg PO Q6H PRN PRN Reason: Headache/Pain, Scale 1-10 Last Admin: 01/18/25 21:53 Dose: 650 mg Al Hydroxide/Mg Hydroxide (Magnesium Hydrox/Alum Hydrox 30 Ml Oral.Susp) 30 ml PO Q6H PRN PRN Reason: Heartburn/Nausea Famotidine (Famotidine 20 Mg Tablet) 20 mg PO BID [facility] Stop: 02/04/25 20:59 Last Admin: 01/19/25 09:05 Dose: 20 mg Fluvoxamine Maleate (Fluvoxamine Maleate 50 Mg Tablet) 100 mg PO BEDTIME [facility] Last Admin: 01/18/25 21:20 Dose: 100 mg Hydroxyzine HCl (Hydroxyzine Hcl 50 Mg Tablet) 50 mg PO 6XD PRN PRN Reason: mod to severe anxiety Ibuprofen (Ibuprofen 400 Mg Tablet) 400 mg PO Q6H PRN PRN Reason: Headache Last Admin: 01/14/25 21:05 Dose: 400 mg Loratadine (Loratadine 10 Mg Tablet) 10 mg PO DAILY [facility] Last Admin: 01/19/25 09:05 Dose: 10 mg Magnesium Hydroxide (Milk Of Magnesia 30 Ml Oral.Susp) 30 ml PO DAILY PRN PRN Reason: Constipation Melatonin (Melatonin 3 Mg Tablet) 9 mg PO BEDTIME [facility] Last Admin: 01/18/25 21:20 Dose: 9 mg Metoprolol Succinate (Metoprolol Succinate Er 50 Mg Tab.Er.24h) 50 mg PO DAILY [facility]; Protocol Last Admin: 01/19/25 09:05 Dose: 50 mg Nicotine Polacrilex (Nicotine Polacrilex 2 Mg Gum) 4 mg BUCCAL Q2H PRN PRN Reason: Nicotine Cravings Pantoprazole Sodium (Pantoprazole Sodium 20 Mg Tablet.) 20 mg PO BID@0630,1630 [facility] Last Admin: 01/19/25 09:05 Dose: 20 mg Polyethylene Glycol (Polyethylene Glycol 3350 17 Gm Powd.Pack) 17 gm PO DAILY PRN PRN Reason: Constipation Quetiapine Fumarate (Quetiapine Fumarate 400 Mg Tablet) 800 mg PO BEDTIME [facility] Last Admin: 01/18/25 21:19 Dose: 800 mg Trazodone HCl (Trazodone Hcl 50 Mg Tablet) 50 mg PO BEDTIME MRX1 PRN PRN Reason: Insomnia Allergies Allergies Allergy/AdvReac Type Severity Reaction Status Date / Time No Known Allergies Allergy Verified 06/19/23 18:03 Assessment & Plan Assessment & Plan (1) Bipolar I disorder with mixed features: Status: Acute Code(s): F31.9 - Bipolar disorder, unspecified Plan Hospital course: 01/08: DC clozapine and asenapine as not indicated. continue seroquel for sleep. taper and D/C tegretol. continue luvox. ECT clearance. 01/09: EKG WNL. awaiting hospitalist consult. DC tegretol after tomorrow morning. otherwise continue current mgmt. 01/10: pt declined medical eval yesterday evening due to perceived late hour and tiredness; awaiting return of hospitalist. pt appears constricted, hypomotoric, hypersomnolent. planning for ECT weds if hospitalist consult completed by then. otherwise continue current mgmt. 01/11: no medical contraindications for ECT. ECT #1 ordered for tomorrow morning. NPO p MN. pt aware, in agreement. 01/12: poor reaction to etomidate. [place] [facility]. continue current mgmt. 01/13: no change. case D/W neelam. ECT tomorrow. [place] [facility] [place] and paralytic choices. continue current mgmt. 01/14 Patient had ECT today; says he sore but otherwise tolerated. Remains depressed. Denies any SI or AVH. Does not want to talk much; not attending to ADLs -says no longer drooling since Clozaril discontinued 01/15: Continue current regimen and plans 01/16: Continue current regimen and plans 01/17: ECT #2 completed today, no issues. continue current mgmt. 01/18: no change in presentation. ECT #3 tomorrow. T/C addition of psychostimulant such as modafanil. NPO p MN. 01/19: ECT #3 completed without incident. no change in presentation. start modafanil 100 mg daily tomorrow. remains with passive SI per RN demarcus. Reason for continued inpatient stay Substantial Risk for: harm to self and inability to function Time Spent With Patient Time: Total time managing care of this patient today __25__ minutes.
[2025-01-19] MEDS: fluvoxaMINE Maleate 50 MG TABLET 100 MG PO (21:07)
[2025-01-19] MEDS: QUEtiapine Fumarate 400 MG TABLET 800 MG PO (21:07)
[2025-01-19] MEDS: Melatonin 3 MG TABLET 9 MG PO (21:07)
[2025-01-20 10:57] VITALS: BP 157/77; PULSE 74; RESP 17; TEMP 36.4; O2SAT 96
[2025-01-20] MEDS: Loratadine 10 MG TABLET PO (10:58)
[2025-01-20] MEDS: Pantoprazole Sodium 20 MG TABLET.DR PO ×2 (10:59→17:16)
[2025-01-20] MEDS: modafiniL 100 MG TABLET PO (10:59)
[2025-01-20] MEDS: Metoprolol Succinate ER 50 MG TAB.ER.24H PO (10:59)
[2025-01-20] MEDS: Famotidine 20 MG TABLET PO ×2 (10:59→20:26)
--- NOTE | 2025-01-20 14:52 | HO.PSYCHPN ---
Subjective Subjective Date of Service: 01/20/25 Reason For Visit: F32.9 Unspecified depressive d/o Interim History: monosyllabic if possible in his responses. mood depressed, sleeping poorly. denies conflict over bedside table space in room or urinating on the floor of the bathroom. discuss sleep meds, pt has not tried BP meds, R/B of clonidine and prazosin discussed, pt opts for clonidine trial. per staff, denies psych Sx. midline tomorrow. irritable. angry re peer using table designated for peer, allegedly urinated on the bathroom floor in response. Mental Status Exam Mental Status Exam Narrative: adequately dressed and groomed, cooperative, somewhat slow. mild PMR. no PMA. speech flattened prosody, decr amount, mildly slowed, nml loudness. thoughts linear and logical. affect constricted. mood kind of pissed off. no SI/HI/AVH expressed. Diagnostics Vital Signs (24Hr): Vital Signs - 24 hr 01/19/25 20:00 01/20/25 10:57 Temperature 97.8 F 97.5 F Pulse Rate 70 74 Respiratory Rate 18 17 Blood Pressure 114/74 157/77 H Pulse Oximetry 95 96 Oxygen Delivery Method Room Air Room Air BMI result Body Mass Index 38.9 Labs 01/14/25 14:17 01/14/25 14:16 Medications Medications Current Medications Acetaminophen (Acetaminophen 325 Mg Tablet) 650 mg PO Q6H PRN PRN Reason: Headache/Pain, Scale 1-10 Last Admin: 01/18/25 21:53 Dose: 650 mg Al Hydroxide/Mg Hydroxide (Magnesium Hydrox/Alum Hydrox 30 Ml Oral.Susp) 30 ml PO Q6H PRN PRN Reason: Heartburn/Nausea Clonidine HCl (Clonidine Hcl 0.1 Mg Tablet) 0.1 mg PO BEDTIME [facility]; Protocol Famotidine (Famotidine 20 Mg Tablet) 20 mg PO BID [facility] Stop: 02/04/25 20:59 Last Admin: 01/20/25 10:59 Dose: 20 mg Fluvoxamine Maleate (Fluvoxamine Maleate 50 Mg Tablet) 100 mg PO BEDTIME [facility] Last Admin: 01/19/25 21:07 Dose: 100 mg Hydroxyzine HCl (Hydroxyzine Hcl 50 Mg Tablet) 50 mg PO 6XD PRN PRN Reason: mod to severe anxiety Ibuprofen (Ibuprofen 400 Mg Tablet) 400 mg PO Q6H PRN PRN Reason: Headache Last Admin: 01/14/25 21:05 Dose: 400 mg Loratadine (Loratadine 10 Mg Tablet) 10 mg PO DAILY [facility] Last Admin: 01/20/25 10:58 Dose: 10 mg Magnesium Hydroxide (Milk Of Magnesia 30 Ml Oral.Susp) 30 ml PO DAILY PRN PRN Reason: Constipation Melatonin (Melatonin 3 Mg Tablet) 9 mg PO BEDTIME [facility] Last Admin: 01/19/25 21:07 Dose: 9 mg Metoprolol Succinate (Metoprolol Succinate Er 50 Mg Tab.Er.24h) 50 mg PO DAILY [facility]; Protocol Last Admin: 01/20/25 10:59 Dose: 50 mg Modafinil (Modafinil 100 Mg Tablet) 100 mg PO DAILY [facility] Last Admin: 01/20/25 10:59 Dose: 100 mg Nicotine Polacrilex (Nicotine Polacrilex 2 Mg Gum) 4 mg BUCCAL Q2H PRN PRN Reason: Nicotine Cravings Pantoprazole Sodium (Pantoprazole Sodium 20 Mg Tablet.Dr) 20 mg PO BID@0630,1630 [facility] Last Admin: 01/20/25 10:59 Dose: 20 mg Polyethylene Glycol (Polyethylene Glycol 3350 17 Gm Powd.Pack) 17 gm PO DAILY PRN PRN Reason: Constipation Quetiapine Fumarate (Quetiapine Fumarate 400 Mg Tablet) 800 mg PO BEDTIME [facility] Last Admin: 01/19/25 21:07 Dose: 800 mg Trazodone HCl (Trazodone Hcl 50 Mg Tablet) 50 mg PO BEDTIME MRX1 PRN PRN Reason: Insomnia Allergies Allergies Allergy/AdvReac Type Severity Reaction Status Date / Time No Known Allergies Allergy Verified 06/19/23 18:03 Assessment & Plan Assessment & Plan (1) Bipolar I disorder with mixed features: Status: Acute Code(s): F31.9 - Bipolar disorder, unspecified Plan Hospital course: 01/08: DC clozapine and asenapine as not indicated. continue seroquel for sleep. taper and D/C tegretol. continue luvox. ECT clearance. 01/09: EKG WNL. awaiting hospitalist consult. DC tegretol after tomorrow morning. otherwise continue current mgmt. 01/10: pt declined medical eval yesterday evening due to perceived late hour and tiredness; awaiting return of hospitalist. pt appears constricted, hypomotoric, hypersomnolent. planning for ECT weds if hospitalist consult completed by then. otherwise continue current mgmt. 01/11: no medical contraindications for ECT. ECT #1 ordered for tomorrow morning. NPO p MN. pt aware, in agreement. 01/12: poor reaction to etomidate. ECT records requested [place] [facility] [place] no ECT given today. continue current mgmt. 01/13: no change. case D/W neelam. ECT tomorrow. collateral obtained from [facility] to guide anesthetic and paralytic choices. continue current mgmt. 01/14 Patient had ECT today; says he sore but otherwise tolerated. Remains depressed. Denies any SI or AVH. Does not want to talk much; not attending to ADLs -says no longer drooling since Clozaril discontinued 01/15: Continue current regimen and plans 01/16: Continue current regimen and plans 01/17: ECT #2 completed today, no issues. continue current mgmt. 01/18: no change in presentation. ECT #3 tomorrow. T/C addition of psychostimulant such as modafanil. NPO p MN. 01/19: ECT #3 completed without incident. no change in presentation. start modafanil 100 mg daily tomorrow. remains with passive SI per [facility] tracy. 01/20: start clonidine 0.1 mg QHS for insomnia. conflict btwn roommates re table space, pt allegedly urinated on the bathroom floor in response. pt denies both conflict as well as having urinated on the bathroom floor. Reason for continued inpatient stay Substantial Risk for: inability to function Time Spent With Patient Time: Total time managing care of this patient today _25___ minutes.
[2025-01-20 20:00] VITALS: BP 134/87; PULSE 75; TEMP 36.5; O2SAT 97
[2025-01-20 20:26] VITALS: BP 134/87
[2025-01-20] MEDS: Melatonin 3 MG TABLET 9 MG PO (20:26)
[2025-01-20] MEDS: fluvoxaMINE Maleate 50 MG TABLET 100 MG PO (20:26)
[2025-01-20] MEDS: cloNIDine HCL 0.1 MG TABLET PO (20:26)
[2025-01-20] MEDS: QUEtiapine Fumarate 400 MG TABLET 800 MG PO (20:26)
[2025-01-21] VITALS (10 sets, daily range): BP systolic 109–147; BP diastolic 63–95; PULSE 60–100; RESP 16–17; TEMP 36.1–36.8; O2SAT 93–97
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
--- NOTE | 2025-01-21 09:52 | HO.MIDLINE ---
Midline Insertion MIDLINE INSERTION Diagnosis: IV access Indication: ECT treatments Pertinent Labs: Reviewed Technique: Using sterile technique including cap and mask, glove and drape, the left arm was prepped and draped in the usual sterile fashion of full barrier technique with [facility]. Using ultrasound guidance, the patent basilic vein access was obtained in a single attempt. A 20 guage 8 cm Non-PASV Midline was positioned. The procedure was performed in 272. Ultrasound was used to document vein patency and for needle entry. A formal ultrasound picture was recorded. Vascular Family Assessment Worker has released the line for use and it is currently dressed with a StatLock, Tegaderm, and CHG disc. Verification has been performed for blood return and line patency. Arm Circumference: 37 cm Equipment: BARD PowerGlide ST Midline Catheter Catheter Type: 20 guage 8 cm Non-PASV Midline Lot #: [id number]
[2025-01-21] MEDS: Lactated Ringers 1,000 ML 100 ML IVCONT (12:13)
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
--- NOTE | 2025-01-21 13:42 | MHC.SHP ---
Pre-Procedural Eval Section A - 24 Hr Update-Section A only Date of Service: 01/21/25 The patient is an INPATIENT: Yes Changes since office visit: Yes Changes in Medication and Yes Patient answered all questions; No Cold of Flu in the past 2 weeks and No New Medical Problems The patient has been examined within 24 hours of the surgical procedure. The History & Physical has been completed within 30 days and I have reviewed it.: Yes Section B - Complete if H&P > 30 days Chief Complaint: F32.9 Unspecified depressive d/o Allergies: Allergies Allergy/AdvReac Type Severity Reaction Status Date / Time No Known Allergies Allergy Verified 06/19/23 18:03 Plan I have reviewed the history and physical and performed a pertinent physical examination on my patient. No changes have occurred unless specified. Time Spent With Patient Time: Total time managing care of this patient today __30__ minutes.
--- NOTE | 2025-01-21 14:31 | HO.ECTPROC ---
ECT Procedure Note Diagnosis/Treatment Date of Service: 01/21/25 Diagnosis: Major Depressive Disorder Previous ECT Date: 01/19/25 Current Treatment Number: 4 Treatment: Series Time: Total time managing care of this patient today __30__ minutes. ECT Settings Device: THYMATRON DGx Electrode Placement: Right Unilateral Program/Pulse Width: 0.50 Energy Percent: 65 Seizure Duration By EEG (in seconds): 54 Medications Administration General Anesthetic: Methohexital (200) Muscle Relaxant: Succinylcholine (200) Ancillary Medications Analgesics: Torodol - Pre ECT (30) Anti-emetics: Zofran - Pre ECT (4) Cardiovascular Medications: Labetolol (10) Miscillaneous Medications: Propofol (30 - post) Airway Management Airway Management: LMA Treatment Recommendations No Changes Recommended: No change
[2025-01-21] MEDS: Pantoprazole Sodium 20 MG TABLET.DR PO (15:21)
[2025-01-21] MEDS: Metoprolol Succinate ER 50 MG TAB.ER.24H PO (15:21)
[2025-01-21] MEDS: Famotidine 20 MG TABLET PO (20:12)
[2025-01-21] MEDS: Melatonin 3 MG TABLET 9 MG PO (20:12)
[2025-01-21] MEDS: fluvoxaMINE Maleate 50 MG TABLET 100 MG PO (20:13)
[2025-01-21] MEDS: cloNIDine HCL 0.1 MG TABLET PO (20:13)
[2025-01-21] MEDS: QUEtiapine Fumarate 400 MG TABLET 800 MG PO (20:13)
[2025-01-22] MEDS: Pantoprazole Sodium 20 MG TABLET.DR PO ×2 (06:42→16:46)
[2025-01-22 08:36] VITALS: BP 111/54; PULSE 59; RESP 16; TEMP 36.6; O2SAT 96
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
[2025-01-22] MEDS: 0.9 % Sodium Chloride Flush 10 ML SYRINGE 5 ML IVFLUSH ×3 (09:07→21:11)
[2025-01-22 09:14] VITALS: PULSE 72
[2025-01-22] MEDS: Famotidine 20 MG TABLET PO ×2 (09:14→20:50)
[2025-01-22] MEDS: modafiniL 100 MG TABLET PO (09:14)
[2025-01-22] MEDS: Loratadine 10 MG TABLET PO (09:14)
[2025-01-22] MEDS: Metoprolol Succinate ER 50 MG TAB.ER.24H PO (09:14)
[2025-01-22 20:50] VITALS: BP 132/82
[2025-01-22] MEDS: cloNIDine HCL 0.1 MG TABLET PO (20:50)
[2025-01-22] MEDS: QUEtiapine Fumarate 400 MG TABLET 800 MG PO (20:51)
[2025-01-22] MEDS: fluvoxaMINE Maleate 50 MG TABLET 100 MG PO (20:51)
[2025-01-22] MEDS: Melatonin 3 MG TABLET 9 MG PO (20:51)
[2025-01-23] MEDS: Pantoprazole Sodium 20 MG TABLET.DR PO ×2 (05:54→16:12)
[2025-01-23 07:56] VITALS: BP 92/53; PULSE 56; TEMP 36.9; O2SAT 93
[2025-01-23] MEDS: Famotidine 20 MG TABLET PO ×2 (08:35→20:36)
[2025-01-23] MEDS: Loratadine 10 MG TABLET PO (08:35)
[2025-01-23] MEDS: modafiniL 100 MG TABLET PO (08:35)
[2025-01-23] MEDS: 0.9 % Sodium Chloride Flush 10 ML SYRINGE 5 ML IVFLUSH ×3 (08:36→20:42)
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
[2025-01-23 20:00] VITALS: BP 143/68; PULSE 72; RESP 16; TEMP 36.6; O2SAT 98
[2025-01-23 20:36] VITALS: BP 143/68
[2025-01-23] MEDS: QUEtiapine Fumarate 400 MG TABLET 800 MG PO (20:36)
[2025-01-23] MEDS: cloNIDine HCL 0.1 MG TABLET PO (20:36)
[2025-01-23] MEDS: fluvoxaMINE Maleate 50 MG TABLET 100 MG PO (20:36)
[2025-01-23] MEDS: Melatonin 3 MG TABLET 9 MG PO (20:37)
[2025-01-24] VITALS (9 sets, daily range): BP systolic 119–160; BP diastolic 71–88; PULSE 64–90; RESP 15–16; TEMP 35.7–36.6; O2SAT 94–98
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
[2025-01-24] MEDS: Lactated Ringers 1,000 ML 50 ML IVCONT (06:56)
--- NOTE | 2025-01-24 07:07 | MHC.SHP ---
Pre-Procedural Eval Section A - 24 Hr Update-Section A only Date of Service: 01/24/25 The patient is an INPATIENT: Yes Changes since office visit: Yes Changes in Medication and Yes Patient answered all questions; No Cold of Flu in the past 2 weeks and No New Medical Problems The patient has been examined within 24 hours of the surgical procedure. The History & Physical has been completed within 30 days and I have reviewed it.: Yes Section B - Complete if H&P > 30 days Chief Complaint: F32.9 Unspecified depressive d/o Allergies: Allergies Allergy/AdvReac Type Severity Reaction Status Date / Time No Known Allergies Allergy Verified 06/19/23 18:03 Plan I have reviewed the history and physical and performed a pertinent physical examination on my patient. No changes have occurred unless specified. Time Spent With Patient Time: Total time managing care of this patient today ____ minutes.
--- NOTE | 2025-01-24 07:09 | HO.ECTPROC ---
ECT Procedure Note Diagnosis/Treatment Date of Service: 01/24/25 Diagnosis: Catatonia Previous ECT Date: 01/21/25 Current Treatment Number: 5 Treatment: Series Interval Clinical Notes: pt dysphoric irritable ? some malave affect limited motivation no c/o side effects minimal memory effects Time: Total time managing care of this patient today ____ minutes. ECT Settings Device: THYMATRON DGx Electrode Placement: Right Unilateral Program/Pulse Width: 0.50 Energy Percent: 65 Seizure Duration By EEG (in seconds): 54 Medications Administration General Anesthetic: Etomidate (16) Muscle Relaxant: Succinylcholine (100) Ancillary Medications Analgesics: Torodol - Pre ECT (30) Anti-emetics: Zofran - Pre ECT (4) Airway Management Airway Management: LMA Treatment Recommendations Pt Tolerated Procedure w/o Issue: Yes
[2025-01-24] MEDS: Metoprolol Succinate ER 50 MG TAB.ER.24H PO (09:27)
[2025-01-24] MEDS: Famotidine 20 MG TABLET PO ×2 (09:27→21:36)
[2025-01-24] MEDS: Loratadine 10 MG TABLET PO (09:29)
[2025-01-24] MEDS: Pantoprazole Sodium 20 MG TABLET.DR PO ×2 (09:29→15:28)
[2025-01-24] MEDS: Acetaminophen 325 MG TABLET 650 MG PO (09:29)
[2025-01-24] MEDS: modafiniL 100 MG TABLET PO (09:29)
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
[2025-01-24] MEDS: 0.9 % Sodium Chloride Flush 10 ML SYRINGE 5 ML IVFLUSH (15:28)
[2025-01-24] MEDS: QUEtiapine Fumarate 400 MG TABLET 800 MG PO (21:33)
[2025-01-24] MEDS: Melatonin 3 MG TABLET 9 MG PO (21:35)
[2025-01-24] MEDS: fluvoxaMINE Maleate 50 MG TABLET 100 MG PO (21:36)
[2025-01-24] MEDS: cloNIDine HCL 0.1 MG TABLET PO (21:37)
[2025-01-25 08:00] VITALS: BP 115/59; PULSE 60; RESP 16; TEMP 36.1; O2SAT 95
[2025-01-25] MEDS: Pantoprazole Sodium 20 MG TABLET.DR PO ×2 (08:40→17:37)
[2025-01-25] MEDS: Metoprolol Succinate ER 50 MG TAB.ER.24H PO (08:40)
[2025-01-25] MEDS: modafiniL 100 MG TABLET PO (08:40)
[2025-01-25] MEDS: Loratadine 10 MG TABLET PO (08:41)
[2025-01-25] MEDS: Famotidine 20 MG TABLET PO ×2 (08:41→21:08)
[2025-01-25] MEDS: 0.9 % Sodium Chloride Flush 10 ML SYRINGE 5 ML IVFLUSH ×2 (08:58→17:34)
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
[2025-01-25 20:00] VITALS: BP 137/78; PULSE 65; TEMP 36.6; O2SAT 98
[2025-01-25] MEDS: fluvoxaMINE Maleate 50 MG TABLET 100 MG PO (21:07)
[2025-01-25 21:08] VITALS: BP 137/78
[2025-01-25] MEDS: cloNIDine HCL 0.1 MG TABLET PO (21:08)
[2025-01-25] MEDS: QUEtiapine Fumarate 400 MG TABLET 800 MG PO (21:08)
[2025-01-25] MEDS: Melatonin 3 MG TABLET 9 MG PO (21:08)
[2025-01-26] VITALS (8 sets, daily range): BP systolic 102–160; BP diastolic 55–90; PULSE 63–85; RESP 12–18; TEMP 36–36.8; O2SAT 96–98
[2025-01-26] MEDS: 0.9 % Sodium Chloride Flush 10 ML SYRINGE 5 ML IVFLUSH ×2 (00:15→17:21)
[2025-01-26] MEDS: Lactated Ringers 1,000 ML 100 ML IVCONT (07:30)
--- NOTE | 2025-01-26 08:57 | MHC.SHP ---
Pre-Procedural Eval Section A - 24 Hr Update-Section A only Date of Service: 01/26/25 The patient is an INPATIENT: Yes Changes since office visit: Yes Patient answered all questions; No Cold of Flu in the past 2 weeks and No New Medical Problems The patient has been examined within 24 hours of the surgical procedure. The History & Physical has been completed within 30 days and I have reviewed it.: Yes Section B - Complete if H&P > 30 days Chief Complaint: F32.9 Unspecified depressive d/o Allergies: Allergies Allergy/AdvReac Type Severity Reaction Status Date / Time No Known Allergies Allergy Verified 06/19/23 18:03 Plan I have reviewed the history and physical and performed a pertinent physical examination on my patient. No changes have occurred unless specified. Time Spent With Patient Time: Total time managing care of this patient today ____ minutes.
--- NOTE | 2025-01-26 09:00 | HO.ECTPROC ---
ECT Procedure Note Diagnosis/Treatment Date of Service: 01/26/25 Diagnosis: Major Depressive Disorder Previous ECT Date: 01/24/25 Current Treatment Number: 6 Treatment: Series Interval Clinical Notes: pt dysphoric irritable flat no c/o side effects limited motivation Time: Total time managing care of this patient today ____ minutes. ECT Settings Device: THYMATRON DGx Electrode Placement: Right Unilateral Program/Pulse Width: 0.50 Energy Percent: 65 Seizure Duration By EEG (in seconds): 40 Medications Administration General Anesthetic: Methohexital (200) Muscle Relaxant: Succinylcholine (200) Ancillary Medications Analgesics: Torodol - Pre ECT (30) Anti-emetics: Zofran - Pre ECT (4) Cardiovascular Medications: Labetolol (5 mg post) Airway Management Airway Management: LMA Treatment Recommendations Pt Tolerated Procedure w/o Issue: Yes
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
[2025-01-26] MEDS: Famotidine 20 MG TABLET PO ×2 (10:39→20:54)
[2025-01-26] MEDS: Metoprolol Succinate ER 50 MG TAB.ER.24H PO (10:39)
[2025-01-26] MEDS: modafiniL 100 MG TABLET PO (10:39)
[2025-01-26] MEDS: Loratadine 10 MG TABLET PO (10:40)
[2025-01-26] MEDS: Pantoprazole Sodium 20 MG TABLET.DR PO ×2 (10:42→17:18)
[2025-01-26] MEDS: fluvoxaMINE Maleate 50 MG TABLET 100 MG PO (20:54)
[2025-01-26] MEDS: cloNIDine HCL 0.1 MG TABLET PO (20:54)
[2025-01-26] MEDS: Melatonin 3 MG TABLET 9 MG PO (20:54)
[2025-01-26] MEDS: QUEtiapine Fumarate 400 MG TABLET 800 MG PO (20:54)
[2025-01-27] MEDS: 0.9 % Sodium Chloride Flush 10 ML SYRINGE 5 ML IVFLUSH ×4 (01:45→22:12)
[2025-01-27 08:00] VITALS: BP 92/52; PULSE 55; RESP 16; TEMP 36.6; O2SAT 98
[2025-01-27] MEDS: Pantoprazole Sodium 20 MG TABLET.DR PO ×2 (09:58→17:22)
[2025-01-27] MEDS: modafiniL 100 MG TABLET PO (09:58)
[2025-01-27] MEDS: Famotidine 20 MG TABLET PO ×2 (09:58→20:10)
[2025-01-27] MEDS: Loratadine 10 MG TABLET PO (09:58)
[2025-01-27 10:02] VITALS: BP 112/62; PULSE 65
[2025-01-27] MEDS: Metoprolol Succinate ER 50 MG TAB.ER.24H PO (10:02)
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
[2025-01-27 19:45] VITALS: BP 145/97; PULSE 69; TEMP 36.7; O2SAT 97
[2025-01-27] MEDS: Melatonin 3 MG TABLET 9 MG PO (20:10)
[2025-01-27] MEDS: fluvoxaMINE Maleate 50 MG TABLET 100 MG PO (20:10)
[2025-01-27] MEDS: cloNIDine HCL 0.1 MG TABLET PO (20:10)
[2025-01-27] MEDS: QUEtiapine Fumarate 400 MG TABLET 800 MG PO (20:10)
[2025-01-28] VITALS (11 sets, daily range): BP systolic 113–147; BP diastolic 63–99; PULSE 58–89; RESP 13–18; TEMP 36.1–36.9; O2SAT 96–100
[2025-01-28] MEDS: 0.9 % Sodium Chloride Flush 10 ML SYRINGE 5 ML IVFLUSH ×2 (08:38→16:24)
--- NOTE | 2025-01-28 08:49 | PC.NURSE ---
Per Dr. Fitch, PO Meds held until after ECT
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
--- NOTE | 2025-01-28 10:30 | MHC.SHP ---
Pre-Procedural Eval Section A - 24 Hr Update-Section A only Date of Service: 01/28/25 The patient is an INPATIENT: Yes Changes since office visit: Yes Patient answered all questions; No Cold of Flu in the past 2 weeks and No New Medical Problems The patient has been examined within 24 hours of the surgical procedure. The History & Physical has been completed within 30 days and I have reviewed it.: Yes Section B - Complete if H&P > 30 days Chief Complaint: F32.9 Unspecified depressive d/o Allergies: Allergies Allergy/AdvReac Type Severity Reaction Status Date / Time No Known Allergies Allergy Verified 06/19/23 18:03 Plan I have reviewed the history and physical and performed a pertinent physical examination on my patient. No changes have occurred unless specified. Time Spent With Patient Time: Total time managing care of this patient today ____ minutes.
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
--- NOTE | 2025-01-28 11:40 | HO.ECTPROC ---
ECT Procedure Note Diagnosis/Treatment Date of Service: 01/28/25 Diagnosis: Major Depressive Disorder Previous ECT Date: 01/24/25 Current Treatment Number: 7 Treatment: Series Interval Clinical Notes: pt dysphoric less irritable flat no c/o side effects limited motivation perhaps malave affect no complaints of side effects Labetalol not used Time: Total time managing care of this patient today _30___ minutes. ECT Settings Device: THYMATRON DGx Electrode Placement: Right Unilateral Program/Pulse Width: 0.50 Energy Percent: 65 Seizure Duration By EEG (in seconds): 44 Medications Administration General Anesthetic: Methohexital (200) Muscle Relaxant: Succinylcholine (200) Ancillary Medications Analgesics: Torodol - Pre ECT (30) Anti-emetics: Zofran - Pre ECT (4) Airway Management Airway Management: LMA Treatment Recommendations Pt Tolerated Procedure w/o Issue: Yes
[2025-01-28] MEDS: Metoprolol Succinate ER 50 MG TAB.ER.24H PO (12:57)
[2025-01-28] MEDS: Loratadine 10 MG TABLET PO (12:57)
[2025-01-28] MEDS: modafiniL 100 MG TABLET PO (12:57)
[2025-01-28] MEDS: Famotidine 20 MG TABLET PO ×2 (12:58→21:17)
[2025-01-28] MEDS: Pantoprazole Sodium 20 MG TABLET.DR PO ×2 (12:58→16:24)
[2025-01-28] MEDS: QUEtiapine Fumarate 400 MG TABLET 800 MG PO (21:16)
[2025-01-28] MEDS: Melatonin 3 MG TABLET 9 MG PO (21:16)
[2025-01-28] MEDS: fluvoxaMINE Maleate 50 MG TABLET 100 MG PO (21:16)
[2025-01-28] MEDS: cloNIDine HCL 0.1 MG TABLET PO (21:17)
[2025-01-29] MEDS: 0.9 % Sodium Chloride Flush 10 ML SYRINGE 5 ML IVFLUSH ×3 (00:25→15:33)
[2025-01-29 08:30] VITALS: BP 112/71; PULSE 73; RESP 16; TEMP 36.5; O2SAT 98
[2025-01-29] MEDS: Loratadine 10 MG TABLET PO (08:36)
[2025-01-29] MEDS: Famotidine 20 MG TABLET PO ×2 (08:36→20:30)
[2025-01-29] MEDS: Metoprolol Succinate ER 50 MG TAB.ER.24H PO (08:36)
[2025-01-29] MEDS: modafiniL 100 MG TABLET PO (08:36)
[2025-01-29] MEDS: Pantoprazole Sodium 20 MG TABLET.DR PO ×2 (08:37→15:32)
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
[2025-01-29 20:00] VITALS: BP 138/65; PULSE 67; TEMP 36.6; O2SAT 99
[2025-01-29] MEDS: fluvoxaMINE Maleate 50 MG TABLET 100 MG PO (20:29)
[2025-01-29] MEDS: Melatonin 3 MG TABLET 9 MG PO (20:29)
[2025-01-29] MEDS: cloNIDine HCL 0.1 MG TABLET PO (20:30)
[2025-01-29] MEDS: QUEtiapine Fumarate 400 MG TABLET 800 MG PO (20:30)
[2025-01-30] MEDS: 0.9 % Sodium Chloride Flush 10 ML SYRINGE 5 ML IVFLUSH ×3 (00:28→15:50)
[2025-01-30] MEDS: Famotidine 20 MG TABLET PO ×2 (08:55→20:24)
[2025-01-30] MEDS: Pantoprazole Sodium 20 MG TABLET.DR PO ×2 (08:55→15:49)
[2025-01-30] MEDS: Metoprolol Succinate ER 50 MG TAB.ER.24H PO (08:55)
[2025-01-30] MEDS: Loratadine 10 MG TABLET PO (08:55)
[2025-01-30] MEDS: modafiniL 100 MG TABLET PO (08:55)
[2025-01-30 09:01] VITALS: BP 107/59; PULSE 60; RESP 16; TEMP 37; O2SAT 93
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
[2025-01-30 19:45] VITALS: BP 127/77; PULSE 62; TEMP 36.6; O2SAT 98
[2025-01-30] MEDS: fluvoxaMINE Maleate 50 MG TABLET 100 MG PO (20:24)
[2025-01-30] MEDS: cloNIDine HCL 0.1 MG TABLET PO (20:24)
[2025-01-30] MEDS: QUEtiapine Fumarate 400 MG TABLET 800 MG PO (20:24)
[2025-01-30] MEDS: Melatonin 3 MG TABLET 9 MG PO (20:24)
[2025-01-31] MEDS: 0.9 % Sodium Chloride Flush 10 ML SYRINGE 5 ML IVFLUSH ×3 (00:36→15:53)
[2025-01-31 08:30] VITALS: BP 117/59; PULSE 70; RESP 16; TEMP 36.4; O2SAT 96
[2025-01-31] MEDS: Pantoprazole Sodium 20 MG TABLET.DR PO ×2 (08:34→15:53)
[2025-01-31] MEDS: Metoprolol Succinate ER 50 MG TAB.ER.24H PO (08:34)
[2025-01-31] MEDS: Loratadine 10 MG TABLET PO (08:34)
[2025-01-31] MEDS: Famotidine 20 MG TABLET PO ×2 (08:34→20:43)
[2025-01-31] MEDS: modafiniL 100 MG TABLET PO (08:34)
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
[2025-01-31 20:00] VITALS: BP 137/77; PULSE 71; RESP 16; TEMP 36.4; O2SAT 98
[2025-01-31] MEDS: cloNIDine HCL 0.1 MG TABLET PO (20:42)
[2025-01-31] MEDS: Melatonin 3 MG TABLET 9 MG PO (20:43)
[2025-01-31] MEDS: fluvoxaMINE Maleate 50 MG TABLET 100 MG PO (20:43)
[2025-01-31] MEDS: QUEtiapine Fumarate 400 MG TABLET 800 MG PO (20:44)
[2025-02-01] MEDS: 0.9 % Sodium Chloride Flush 10 ML SYRINGE 5 ML IVFLUSH ×3 (00:04→17:33)
[2025-02-01 08:00] VITALS: BP 136/70; PULSE 80; RESP 16; TEMP 37; O2SAT 98
[2025-02-01] MEDS: Pantoprazole Sodium 20 MG TABLET.DR PO ×2 (08:33→17:33)
[2025-02-01] MEDS: Loratadine 10 MG TABLET PO (08:33)
[2025-02-01 08:34] VITALS: BP 135/70; PULSE 80
[2025-02-01] MEDS: Famotidine 20 MG TABLET PO ×2 (08:34→20:47)
[2025-02-01] MEDS: Metoprolol Succinate ER 50 MG TAB.ER.24H PO (08:34)
[2025-02-01] MEDS: modafiniL 100 MG TABLET PO (08:34)
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
[2025-02-01 19:53] VITALS: BP 138/85; PULSE 74; RESP 18; TEMP 36.5; O2SAT 96
[2025-02-01 20:47] VITALS: BP 138/85
[2025-02-01] MEDS: QUEtiapine Fumarate 400 MG TABLET 800 MG PO (20:47)
[2025-02-01] MEDS: Melatonin 3 MG TABLET 9 MG PO (20:47)
[2025-02-01] MEDS: cloNIDine HCL 0.1 MG TABLET PO (20:47)
[2025-02-01] MEDS: fluvoxaMINE Maleate 50 MG TABLET 100 MG PO (20:48)
[2025-02-02] VITALS (8 sets, daily range): BP systolic 127–164; BP diastolic 63–97; PULSE 68–89; RESP 16; TEMP 36.2–37; O2SAT 95–98
[2025-02-02] MEDS: 0.9 % Sodium Chloride Flush 10 ML SYRINGE 5 ML IVFLUSH ×2 (00:09→17:06)
--- NOTE | 2025-02-02 08:42 | MHC.SHP ---
Pre-Procedural Eval Section A - 24 Hr Update-Section A only Date of Service: 02/02/25 Section B - Complete if H&P > 30 days Chief Complaint: F32.9 Unspecified depressive d/o Allergies: Allergies Allergy/AdvReac Type Severity Reaction Status Date / Time No Known Allergies Allergy Verified 06/19/23 18:03 Plan I have reviewed the history and physical and performed a pertinent physical examination on my patient. No changes have occurred unless specified. Time Spent With Patient Time: Total time managing care of this patient today ____ minutes.
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
[2025-02-02] MEDS: Loratadine 10 MG TABLET PO (10:44)
[2025-02-02] MEDS: Famotidine 20 MG TABLET PO ×2 (10:44→20:32)
[2025-02-02] MEDS: modafiniL 100 MG TABLET PO (10:44)
[2025-02-02] MEDS: Metoprolol Succinate ER 50 MG TAB.ER.24H PO (10:44)
[2025-02-02] MEDS: Pantoprazole Sodium 20 MG TABLET.DR PO ×2 (10:44→17:06)
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
[2025-02-02] MEDS: Melatonin 3 MG TABLET 9 MG PO (20:32)
[2025-02-02] MEDS: QUEtiapine Fumarate 400 MG TABLET 800 MG PO (20:32)
[2025-02-02] MEDS: cloNIDine HCL 0.1 MG TABLET PO (20:32)
[2025-02-02] MEDS: fluvoxaMINE Maleate 50 MG TABLET 100 MG PO (20:32)
[2025-02-03 08:30] VITALS: BP 125/75; PULSE 88; RESP 16; TEMP 36.7; O2SAT 96
[2025-02-03] MEDS: Acetaminophen 325 MG TABLET 650 MG PO ×2 (08:52→20:18)
[2025-02-03] MEDS: Pantoprazole Sodium 20 MG TABLET.DR PO ×2 (08:53→16:26)
[2025-02-03] MEDS: modafiniL 100 MG TABLET 200 MG PO (08:53)
[2025-02-03] MEDS: Famotidine 20 MG TABLET PO ×2 (08:53→20:15)
[2025-02-03] MEDS: Metoprolol Succinate ER 50 MG TAB.ER.24H PO (08:53)
[2025-02-03] MEDS: Loratadine 10 MG TABLET PO (08:53)
[2025-02-03] MEDS: 0.9 % Sodium Chloride Flush 10 ML SYRINGE 5 ML IVFLUSH ×2 (08:54→16:26)
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
--- NOTE | 2025-02-03 12:26 | P.PCN_ITS ---
ECT Procedure Note Diagnosis/Treatment Date of Service: 02/02/25 Diagnosis: Major Depressive Disorder Previous ECT Date: 01/28/25 Current Treatment Number: 8 Treatment: Series Interval Clinical Notes: pt dysphoric but improved less irritable flat no c/o side effects limited motivation perhaps malave affects Labetalol not needed , Energy increased to 100% secondary to lack of response consider bifrontal but bilateral treatment at [facility] cause some cognitive issues Time: Total time managing care of this patient today _30___ minutes. ECT Settings Device: THYMATRON DGx Electrode Placement: Right Unilateral Program/Pulse Width: 0.50 Energy Percent: 100 Seizure Duration By EEG (in seconds): 68 Medications Administration General Anesthetic: Methohexital (200) Muscle Relaxant: Succinylcholine (200) Ancillary Medications Analgesics: Torodol - Pre ECT (30) Anti-emetics: Zofran - Pre ECT (4) Airway Management Airway Management: LMA Treatment Recommendations Pt Tolerated Procedure w/o Issue: Yes
[2025-02-03 13:09] VITALS: BMI 40.0
[2025-02-03 20:00] VITALS: BP 135/80; PULSE 71; TEMP 36.4; O2SAT 97
[2025-02-03] MEDS: QUEtiapine Fumarate 400 MG TABLET 800 MG PO (20:14)
[2025-02-03] MEDS: fluvoxaMINE Maleate 50 MG TABLET 100 MG PO (20:14)
[2025-02-03 20:15] VITALS: BP 135/80
[2025-02-03] MEDS: Melatonin 3 MG TABLET 9 MG PO (20:15)
[2025-02-03] MEDS: cloNIDine HCL 0.1 MG TABLET PO (20:15)
[2025-02-04] VITALS (13 sets, daily range): BP systolic 105–174; BP diastolic 51–91; PULSE 68–106; RESP 14–20; TEMP 2.7–37.1; O2SAT 95–97
[2025-02-04] MEDS: Lactated Ringers 1,000 ML 50 ML IVCONT (06:42)
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
--- NOTE | 2025-02-04 07:48 | MHC.SHP ---
Pre-Procedural Eval Section A - 24 Hr Update-Section A only Date of Service: 02/04/25 The patient is an INPATIENT: Yes Changes since office visit: Yes Patient answered all questions; No Cold of Flu in the past 2 weeks, No New Medical Problems and No Changes in Medication The patient has been examined within 24 hours of the surgical procedure. The History & Physical has been completed within 30 days and I have reviewed it.: Yes Section B - Complete if H&P > 30 days Chief Complaint: F32.9 Unspecified depressive d/o Allergies: Allergies Allergy/AdvReac Type Severity Reaction Status Date / Time No Known Allergies Allergy Verified 06/19/23 18:03 Plan I have reviewed the history and physical and performed a pertinent physical examination on my patient. No changes have occurred unless specified. Time Spent With Patient Time: Total time managing care of this patient today __30__ minutes.
--- NOTE | 2025-02-04 08:39 | HO.ECTPROC ---
ECT Procedure Note Diagnosis/Treatment Date of Service: 02/04/25 Diagnosis: Major Depressive Disorder Previous ECT Date: 02/02/25 Current Treatment Number: 9 Treatment: Series Interval Clinical Notes: stable presentation. reporting improved mood and less SI, but affect and motor appearance unchanged. Time: Total time managing care of this patient today __35__ minutes. ECT Settings Device: THYMATRON DGx Electrode Placement: Right Unilateral Program/Pulse Width: 0.50 Energy Percent: 100 Seizure Duration By EEG (in seconds): 61 Medications Administration General Anesthetic: Methohexital (200) Muscle Relaxant: Succinylcholine (200) Ancillary Medications Analgesics: Torodol - Pre ECT (30) Anti-emetics: Zofran - Pre ECT (4) Airway Management Airway Management: Bag Mask Ventilation Treatment Recommendations No Changes Recommended: No change Notes: could consider bifrontal if progress is considered inadequate Pt Tolerated Procedure w/o Issue: Yes
[2025-02-04] MEDS: modafiniL 100 MG TABLET 200 MG PO (09:02)
[2025-02-04] MEDS: Famotidine 20 MG TABLET PO (09:02)
[2025-02-04] MEDS: Metoprolol Succinate ER 50 MG TAB.ER.24H PO (09:02)
[2025-02-04] MEDS: Loratadine 10 MG TABLET PO (09:02)
[2025-02-04] MEDS: Pantoprazole Sodium 20 MG TABLET.DR PO ×2 (09:02→16:41)
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
[2025-02-04] MEDS: 0.9 % Sodium Chloride Flush 10 ML SYRINGE 5 ML IVFLUSH ×2 (16:24)
[2025-02-04] MEDS: fluvoxaMINE Maleate 50 MG TABLET 100 MG PO (21:23)
[2025-02-04] MEDS: Melatonin 3 MG TABLET 9 MG PO (21:24)
[2025-02-04] MEDS: QUEtiapine Fumarate 400 MG TABLET 800 MG PO (21:25)
[2025-02-04] MEDS: cloNIDine HCL 0.1 MG TABLET PO (21:25)
[2025-02-05 08:00] VITALS: BP 106/52; PULSE 63; TEMP 36.9; O2SAT 97
[2025-02-05] MEDS: modafiniL 100 MG TABLET 200 MG PO (08:53)
[2025-02-05] MEDS: Acetaminophen 325 MG TABLET 650 MG PO (08:54)
[2025-02-05] MEDS: Loratadine 10 MG TABLET PO (08:54)
[2025-02-05] MEDS: Metoprolol Succinate ER 50 MG TAB.ER.24H PO (08:54)
[2025-02-05] MEDS: Pantoprazole Sodium 20 MG TABLET.DR PO ×2 (08:54→16:55)
[2025-02-05] MEDS: 0.9 % Sodium Chloride Flush 10 ML SYRINGE 5 ML IVFLUSH ×2 (08:56→16:56)
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
[2025-02-05 20:00] VITALS: BP 133/84; PULSE 79; RESP 16; TEMP 36.9; O2SAT 95
[2025-02-05] MEDS: Melatonin 3 MG TABLET 9 MG PO (20:45)
[2025-02-05] MEDS: QUEtiapine Fumarate 400 MG TABLET 800 MG PO (20:46)
[2025-02-05] MEDS: fluvoxaMINE Maleate 50 MG TABLET 100 MG PO (20:46)
[2025-02-05] MEDS: cloNIDine HCL 0.1 MG TABLET PO (20:47)
[2025-02-06 08:00] VITALS: BP 137/67; PULSE 82; TEMP 36.4; O2SAT 94
[2025-02-06] MEDS: Pantoprazole Sodium 20 MG TABLET.DR PO ×2 (08:52→16:35)
[2025-02-06] MEDS: Loratadine 10 MG TABLET PO (08:52)
[2025-02-06] MEDS: modafiniL 100 MG TABLET 200 MG PO (08:52)
[2025-02-06] MEDS: Metoprolol Succinate ER 50 MG TAB.ER.24H PO (08:52)
[2025-02-06] MEDS: 0.9 % Sodium Chloride Flush 10 ML SYRINGE 5 ML IVFLUSH ×3 (08:53→23:49)
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
[2025-02-06 20:00] VITALS: BP 149/73; PULSE 65; TEMP 36.5; O2SAT 96
[2025-02-06] MEDS: Melatonin 3 MG TABLET 9 MG PO (21:14)
[2025-02-06] MEDS: fluvoxaMINE Maleate 50 MG TABLET 100 MG PO (21:15)
[2025-02-06] MEDS: QUEtiapine Fumarate 400 MG TABLET 800 MG PO (21:15)
[2025-02-06] MEDS: cloNIDine HCL 0.1 MG TABLET PO (21:16)
[2025-02-07 08:00] VITALS: BP 129/82; PULSE 82; RESP 16; TEMP 36.8; O2SAT 96
[2025-02-07] MEDS: 0.9 % Sodium Chloride Flush 10 ML SYRINGE 5 ML IVFLUSH ×2 (09:31→18:03)
[2025-02-07 13:58] VITALS: BP 134/88; PULSE 78
[2025-02-07] MEDS: Metoprolol Succinate ER 50 MG TAB.ER.24H PO (13:58)
[2025-02-07] MEDS: Loratadine 10 MG TABLET PO (13:58)
[2025-02-07] MEDS: modafiniL 100 MG TABLET 200 MG PO (13:58)
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
[2025-02-07] MEDS: Pantoprazole Sodium 20 MG TABLET.DR PO (18:04)
[2025-02-07 21:10] VITALS: BP 142/78; PULSE 64; TEMP 36.8; O2SAT 97
[2025-02-07] MEDS: fluvoxaMINE Maleate 50 MG TABLET 100 MG PO (21:13)
[2025-02-07] MEDS: Melatonin 3 MG TABLET 9 MG PO (21:13)
[2025-02-07 21:14] VITALS: BP 142/78
[2025-02-07] MEDS: cloNIDine HCL 0.1 MG TABLET PO (21:14)
[2025-02-07] MEDS: QUEtiapine Fumarate 400 MG TABLET 800 MG PO (21:14)
[2025-02-08] MEDS: 0.9 % Sodium Chloride Flush 10 ML SYRINGE 5 ML IVFLUSH ×3 (00:28→16:04)
[2025-02-08 08:30] VITALS: BP 120/67; PULSE 84; RESP 16; TEMP 36.5; O2SAT 98
[2025-02-08] MEDS: Pantoprazole Sodium 20 MG TABLET.DR PO ×2 (09:04→16:03)
[2025-02-08] MEDS: modafiniL 100 MG TABLET 200 MG PO (09:04)
[2025-02-08] MEDS: Metoprolol Succinate ER 50 MG TAB.ER.24H PO (09:04)
[2025-02-08] MEDS: Loratadine 10 MG TABLET PO (09:04)
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
[2025-02-08 20:00] VITALS: BP 151/84; PULSE 68; TEMP 36.4; O2SAT 98
[2025-02-08 20:03] VITALS: BP 157/84
[2025-02-08] MEDS: QUEtiapine Fumarate 400 MG TABLET 800 MG PO (20:03)
[2025-02-08] MEDS: cloNIDine HCL 0.1 MG TABLET PO (20:03)
[2025-02-08] MEDS: Melatonin 3 MG TABLET 9 MG PO (20:03)
[2025-02-08] MEDS: fluvoxaMINE Maleate 50 MG TABLET 100 MG PO (20:04)
[2025-02-09] VITALS (10 sets, daily range): BP systolic 120–173; BP diastolic 68–96; PULSE 81–106; RESP 12–18; TEMP 35.9–37.4; O2SAT 93–96
[2025-02-09] MEDS: 0.9 % Sodium Chloride Flush 10 ML SYRINGE 5 ML IVFLUSH ×2 (00:38→16:15)
[2025-02-09] MEDS: Lactated Ringers 1,000 ML 100 ML IVCONT (06:31)
--- NOTE | 2025-02-09 07:57 | MHC.SHP ---
Pre-Procedural Eval Section A - 24 Hr Update-Section A only Date of Service: 02/09/25 The patient is an INPATIENT: Yes Changes since office visit: No Cold of Flu in the past 2 weeks, No New Medical Problems, No Changes in Medication and No Patient answered all questions The patient has been examined within 24 hours of the surgical procedure. The History & Physical has been completed within 30 days and I have reviewed it.: Yes Section B - Complete if H&P > 30 days Chief Complaint: F32.9 Unspecified depressive d/o Details of Present Illness: little better Allergies: Allergies Allergy/AdvReac Type Severity Reaction Status Date / Time No Known Allergies Allergy Verified 06/19/23 18:03 Review of Systems Sugical H&P ROS: Negative: Constitution, Cardiovascular, Respiratory, Neurological and Gastrointestinal Exam Surgical H&P Exam: Normal: Neurological Plan Diagnosis/Plan: Unchanged I have reviewed the history and physical and performed a pertinent physical examination on my patient. No changes have occurred unless specified. Time Spent With Patient Time: Total time managing care of this patient today ____ minutes.
--- NOTE | 2025-02-09 08:03 | HO.ECTPROC ---
ECT Procedure Note Diagnosis/Treatment Date of Service: 02/09/25 Diagnosis: Major Depressive Disorder Previous ECT Date: 02/02/25 Current Treatment Number: 9 Interval Clinical Notes: little better Time: Total time managing care of this patient today ____ minutes. ECT Settings Device: THYMATRON DGx Electrode Placement: Right Unilateral Program/Pulse Width: 0.50 Energy Percent: 100 Seizure Duration By EEG (in seconds): 41 By Motor Observation (in seconds): 2 Medications Administration General Anesthetic: Methohexital (200) Muscle Relaxant: Succinylcholine (200) Ancillary Medications Analgesics: Torodol - Pre ECT (30) Anti-emetics: Zofran - Pre ECT (4) Airway Management Airway Management: LMA Treatment Recommendations No Changes Recommended: No change Electrode Placement: Right Unilateral Program/Pulse Width: 0.50 Energy Percent: 100 Notes: pt mood little better continue with current treatment parameters Pt Tolerated Procedure w/o Issue: Yes
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
[2025-02-09] MEDS: Metoprolol Succinate ER 50 MG TAB.ER.24H PO (09:27)
[2025-02-09] MEDS: Pantoprazole Sodium 20 MG TABLET.DR PO ×2 (09:27→16:14)
[2025-02-09] MEDS: Loratadine 10 MG TABLET PO (09:28)
[2025-02-09] MEDS: modafiniL 100 MG TABLET 200 MG PO (09:28)
[2025-02-09] MEDS: Dextroamphetamine/Amphetamine XR 10 MG CAP.ER.24H PO (10:16)
[2025-02-09] MEDS: Melatonin 3 MG TABLET 9 MG PO (21:00)
[2025-02-09] MEDS: fluvoxaMINE Maleate 50 MG TABLET 100 MG PO (21:00)
[2025-02-09] MEDS: QUEtiapine Fumarate 400 MG TABLET 800 MG PO (21:00)
[2025-02-09] MEDS: cloNIDine HCL 0.1 MG TABLET PO (21:00)
[2025-02-10] MEDS: 0.9 % Sodium Chloride Flush 10 ML SYRINGE 5 ML IVFLUSH ×4 (00:07→22:05)
[2025-02-10 07:00] VITALS: BMI 40.3
[2025-02-10 08:21] VITALS: BP 131/83; PULSE 87; TEMP 36.9; O2SAT 97
[2025-02-10] MEDS: modafiniL 100 MG TABLET 200 MG PO (08:25)
[2025-02-10] MEDS: Metoprolol Succinate ER 50 MG TAB.ER.24H PO (08:25)
[2025-02-10] MEDS: Pantoprazole Sodium 20 MG TABLET.DR PO ×2 (08:25→16:36)
[2025-02-10] MEDS: Loratadine 10 MG TABLET PO (08:25)
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
[2025-02-10 20:00] VITALS: BP 128/84; RESP 18; TEMP 37.2; O2SAT 97
[2025-02-10] MEDS: QUEtiapine Fumarate 400 MG TABLET 800 MG PO (21:58)
[2025-02-10 21:59] VITALS: BP 118/70
[2025-02-10] MEDS: cloNIDine HCL 0.1 MG TABLET PO (21:59)
[2025-02-10] MEDS: Melatonin 3 MG TABLET 9 MG PO (21:59)
[2025-02-10] MEDS: fluvoxaMINE Maleate 50 MG TABLET 100 MG PO (22:00)
[2025-02-11] VITALS (9 sets, daily range): BP systolic 134–172; BP diastolic 76–92; PULSE 69–85; RESP 12–18; TEMP 36.1–37.1; O2SAT 94–97
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
--- NOTE | 2025-02-11 07:40 | MHC.SHP ---
Pre-Procedural Eval Section A - 24 Hr Update-Section A only Date of Service: 02/11/25 The patient is an INPATIENT: Yes Changes since office visit: No Cold of Flu in the past 2 weeks, No New Medical Problems, No Changes in Medication and No Patient answered all questions The patient has been examined within 24 hours of the surgical procedure. The History & Physical has been completed within 30 days and I have reviewed it.: Yes Section B - Complete if H&P > 30 days Chief Complaint: F32.9 Unspecified depressive d/o Details of Present Illness: little better Allergies: Allergies Allergy/AdvReac Type Severity Reaction Status Date / Time No Known Allergies Allergy Verified 06/19/23 18:03 Review of Systems Sugical H&P ROS: Negative: Constitution, Cardiovascular, Respiratory, Neurological and Gastrointestinal Exam Surgical H&P Exam: Normal: Neurological Plan Diagnosis/Plan: Unchanged I have reviewed the history and physical and performed a pertinent physical examination on my patient. No changes have occurred unless specified. Time Spent With Patient Time: Total time managing care of this patient today ____ minutes.
--- NOTE | 2025-02-11 07:55 | HO.ECTPROC ---
ECT Procedure Note Diagnosis/Treatment Date of Service: 02/11/25 Diagnosis: Major Depressive Disorder Previous ECT Date: 02/09/25 Current Treatment Number: 10 Treatment: Series Interval Clinical Notes: Pt states some improvement no c/o side effects Time: Total time managing care of this patient today ____ minutes. ECT Settings Device: THYMATRON DGx Electrode Placement: Right Unilateral Program/Pulse Width: 0.50 Energy Percent: 100 Seizure Duration By EEG (in seconds): 60 Medications Administration General Anesthetic: Methohexital (200) Muscle Relaxant: Succinylcholine (200) Ancillary Medications Analgesics: Torodol - Pre ECT (30) Anti-emetics: Zofran - Pre ECT (4) Airway Management Airway Management: LMA Treatment Recommendations No Changes Recommended: No change Pt Tolerated Procedure w/o Issue: Yes
[2025-02-11] MEDS: Metoprolol Succinate ER 50 MG TAB.ER.24H PO (09:10)
[2025-02-11] MEDS: modafiniL 100 MG TABLET 200 MG PO (09:10)
[2025-02-11] MEDS: Pantoprazole Sodium 20 MG TABLET.DR PO ×2 (09:10→16:32)
[2025-02-11] MEDS: Dextroamphetamine/Amphetamine XR 10 MG CAP.ER.24H 20 MG PO (09:10)
[2025-02-11] MEDS: Loratadine 10 MG TABLET PO (09:11)
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
[2025-02-11] MEDS: 0.9 % Sodium Chloride Flush 10 ML SYRINGE 5 ML IVFLUSH (16:31)
[2025-02-11] MEDS: QUEtiapine Fumarate 400 MG TABLET 800 MG PO (20:26)
[2025-02-11] MEDS: cloNIDine HCL 0.1 MG TABLET PO (20:26)
[2025-02-11] MEDS: Melatonin 3 MG TABLET 9 MG PO (20:26)
[2025-02-11] MEDS: fluvoxaMINE Maleate 50 MG TABLET 100 MG PO (20:26)
[2025-02-12] MEDS: 0.9 % Sodium Chloride Flush 10 ML SYRINGE 5 ML IVFLUSH ×3 (00:17→16:40)
[2025-02-12 08:00] VITALS: BP 132/71; PULSE 83; RESP 18; TEMP 36.1; O2SAT 95
[2025-02-12] MEDS: Metoprolol Succinate ER 50 MG TAB.ER.24H PO (08:43)
[2025-02-12] MEDS: modafiniL 100 MG TABLET 200 MG PO (08:43)
[2025-02-12] MEDS: Loratadine 10 MG TABLET PO (08:44)
[2025-02-12] MEDS: Pantoprazole Sodium 20 MG TABLET.DR PO ×2 (08:44→16:40)
[2025-02-12] MEDS: Dextroamphetamine/Amphetamine XR 10 MG CAP.ER.24H 30 MG PO (08:44)
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
[2025-02-12 20:00] VITALS: BP 149/74; PULSE 83; TEMP 36.9; O2SAT 94
[2025-02-12 21:35] VITALS: BP 149/74
[2025-02-12] MEDS: Melatonin 3 MG TABLET 9 MG PO (21:35)
[2025-02-12] MEDS: fluvoxaMINE Maleate 50 MG TABLET 100 MG PO (21:35)
[2025-02-12] MEDS: cloNIDine HCL 0.1 MG TABLET PO (21:35)
[2025-02-12] MEDS: QUEtiapine Fumarate 400 MG TABLET 800 MG PO (21:35)
[2025-02-13] MEDS: 0.9 % Sodium Chloride Flush 10 ML SYRINGE 5 ML IVFLUSH ×3 (00:04→16:27)
[2025-02-13 08:00] VITALS: BP 108/57; PULSE 68; RESP 18; TEMP 36.5; O2SAT 98
[2025-02-13] MEDS: Pantoprazole Sodium 20 MG TABLET.DR PO ×2 (09:08→16:27)
[2025-02-13] MEDS: modafiniL 100 MG TABLET 200 MG PO (09:08)
[2025-02-13] MEDS: Metoprolol Succinate ER 50 MG TAB.ER.24H PO (09:08)
[2025-02-13] MEDS: Loratadine 10 MG TABLET PO (09:08)
[2025-02-13] MEDS: Dextroamphetamine/Amphetamine XR 10 MG CAP.ER.24H 30 MG PO (09:08)
[2025-02-13 20:00] VITALS: BP 139/73; PULSE 80; RESP 16; TEMP 37.1; O2SAT 98
[2025-02-13] MEDS: Melatonin 3 MG TABLET 9 MG PO (20:46)
[2025-02-13] MEDS: fluvoxaMINE Maleate 50 MG TABLET 100 MG PO (20:47)
[2025-02-13] MEDS: QUEtiapine Fumarate 400 MG TABLET 800 MG PO (20:47)
[2025-02-13] MEDS: cloNIDine HCL 0.1 MG TABLET PO (20:48)
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
[2025-02-14] VITALS (10 sets, daily range): BP systolic 113–183; BP diastolic 46–98; PULSE 71–97; RESP 14–18; TEMP 36.1–36.9; O2SAT 94–99
[2025-02-14] MEDS: 0.9 % Sodium Chloride Flush 10 ML SYRINGE 5 ML IVFLUSH ×2 (00:20→16:10)
--- NOTE | 2025-02-14 06:59 | MHC.SHP ---
Pre-Procedural Eval Section A - 24 Hr Update-Section A only Date of Service: 02/14/25 The patient is an INPATIENT: Yes Changes since office visit: Yes Patient answered all questions; No Cold of Flu in the past 2 weeks, No New Medical Problems and No Changes in Medication The patient has been examined within 24 hours of the surgical procedure. The History & Physical has been completed within 30 days and I have reviewed it.: Yes Section B - Complete if H&P > 30 days Chief Complaint: F32.9 Unspecified depressive d/o Allergies: Allergies Allergy/AdvReac Type Severity Reaction Status Date / Time No Known Allergies Allergy Verified 06/19/23 18:03 Plan I have reviewed the history and physical and performed a pertinent physical examination on my patient. No changes have occurred unless specified. Time Spent With Patient Time: Total time managing care of this patient today ____ minutes.
--- NOTE | 2025-02-14 07:47 | HO.ECTPROC ---
ECT Procedure Note Diagnosis/Treatment Date of Service: 02/14/25 Diagnosis: Major Depressive Disorder Previous ECT Date: 02/03/25 Current Treatment Number: 9 Treatment: Series Interval Clinical Notes: no change in clinical status Time: Total time managing care of this patient today __30__ minutes. ECT Settings Device: THYMATRON DGx Electrode Placement: Right Unilateral Program/Pulse Width: 0.50 Energy Percent: 100 Seizure Duration By EEG (in seconds): 79 Medications Administration General Anesthetic: Methohexital (200) Muscle Relaxant: Succinylcholine (200) Ancillary Medications Analgesics: Torodol - Pre ECT (30) Anti-emetics: Zofran - Pre ECT (4) Airway Management Airway Management: Bag Mask Ventilation Treatment Recommendations No Changes Recommended: No change Pt Tolerated Procedure w/o Issue: Yes
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
[2025-02-14] MEDS: Pantoprazole Sodium 20 MG TABLET.DR PO ×2 (09:05→16:10)
[2025-02-14] MEDS: Loratadine 10 MG TABLET PO (09:05)
[2025-02-14] MEDS: Metoprolol Succinate ER 50 MG TAB.ER.24H PO (09:05)
[2025-02-14] MEDS: Dextroamphetamine/Amphetamine XR 10 MG CAP.ER.24H 30 MG PO (09:05)
[2025-02-14] MEDS: modafiniL 100 MG TABLET 200 MG PO (09:05)
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
[2025-02-14] MEDS: Melatonin 3 MG TABLET 9 MG PO (21:25)
[2025-02-14] MEDS: cloNIDine HCL 0.1 MG TABLET PO (21:27)
[2025-02-14] MEDS: fluvoxaMINE Maleate 50 MG TABLET 100 MG PO (21:27)
[2025-02-14] MEDS: QUEtiapine Fumarate 400 MG TABLET 800 MG PO (21:28)
[2025-02-15 08:00] VITALS: BP 113/56; PULSE 75; TEMP 36.5; O2SAT 94
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
[2025-02-15] MEDS: 0.9 % Sodium Chloride Flush 10 ML SYRINGE 5 ML IVFLUSH (08:59)
[2025-02-15] MEDS: Metoprolol Succinate ER 50 MG TAB.ER.24H PO (09:00)
[2025-02-15] MEDS: Loratadine 10 MG TABLET PO (09:00)
[2025-02-15] MEDS: Acetaminophen 325 MG TABLET 650 MG PO (09:00)
[2025-02-15] MEDS: Ibuprofen 400 MG TABLET PO (09:00)
[2025-02-15] MEDS: Pantoprazole Sodium 20 MG TABLET.DR PO ×2 (09:01→17:13)
[2025-02-15] MEDS: Dextroamphetamine/Amphetamine XR 10 MG CAP.ER.24H 30 MG PO (09:01)
--- NOTE | 2025-02-15 09:58 | HO.REMOVAL ---
Removal of PICC/Midline Removal of PICC/Midline: Removal of Midline: 1. Date: 02/15/2025 2. Reason removed: MD order done with therapy 3. Inserted length: 8cm 4. Removed length: 8cm 5. A dressing was placed over the site upon removal. No edema or bleeding at the site.
[2025-02-15 20:00] VITALS: BP 135/85; PULSE 74; TEMP 36.7; O2SAT 97
[2025-02-15] MEDS: cloNIDine HCL 0.1 MG TABLET PO (20:54)
[2025-02-15] MEDS: Melatonin 3 MG TABLET 9 MG PO (20:54)
[2025-02-15] MEDS: QUEtiapine Fumarate 400 MG TABLET 800 MG PO (20:54)
[2025-02-15] MEDS: fluvoxaMINE Maleate 50 MG TABLET 100 MG PO (20:55)
[2025-02-16 09:00] VITALS: BP 144/79; PULSE 85; RESP 18; TEMP 36.6; O2SAT 98
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
[2025-02-16] MEDS: Metoprolol Succinate ER 50 MG TAB.ER.24H PO (09:12)
[2025-02-16] MEDS: Pantoprazole Sodium 20 MG TABLET.DR PO (09:12)
[2025-02-16] MEDS: Dextroamphetamine/Amphetamine XR 10 MG CAP.ER.24H 30 MG PO (09:12)
[2025-02-16] MEDS: Loratadine 10 MG TABLET PO (09:12)
== END 2025-02-16 04:00 | disposition home or self-care (01) | DRG 885 ==
LOC: HO.PADLT16 01-17 08:51 → HO.PM5 01-21 12:17
PROVIDERS: Nurse Practitioner Family; Psychiatry & Neurology Psychiatry; Admitting Provider Psychiatry & Neurology Psychiatry; Visit Provider Psychiatry & Neurology Psychiatry
PROC: (CPT 90870; principal; 2025-01-12 14:30)
PROC: GZB4ZZZ Other Electroconvulsive Therapy (ICD-10-PCS; CPT 90870; principal; 2025-01-14 09:30)
DX: F31.60 Bipolar disorder, current episode mixed, unspecified (principal); R45.851 Suicidal ideations; K21.9 Gastro-esophageal reflux disease without esophagitis; E78.2 Mixed hyperlipidemia; Z87.891 Personal history of nicotine dependence; Z79.899 Other long term (current) drug therapy
CPT/HCPCS: 36410; 36415; 80053; 80061; 81003; 82248; 82607; 82746; 83036; 84439; 84443; 85025; 90870; 93005; 99235; J0330; J1596; J1805; J1885; J1920; J2250; J2405; J2704; J7120

== ENCOUNTER → 2025-01-07 16:36 | Outpatient (BNV) | payer OTHER, SELFPAY | PROVIDERS: Admitting Provider Psychiatry & Neurology Psychiatry; Visit Provider Nurse Practitioner Family | DX: K21.9 Gastro-esophageal reflux disease without esophagitis (principal) | CPT/HCPCS: 99221; 99499 ==

== ENCOUNTER → 2025-01-07 16:36 | Outpatient (BNV) | payer OTHER, SELFPAY | PROVIDERS: Admitting Provider Psychiatry & Neurology Psychiatry; Visit Provider Psychiatry & Neurology Psychiatry | DX: F33.2 Major depressive disorder, recurrent severe without psychotic features (principal) | CPT/HCPCS: 90870 ==

== ENCOUNTER → 2025-01-07 16:36 | Outpatient (BNV) | payer OTHER, SELFPAY | PROVIDERS: Admitting Provider Psychiatry & Neurology Psychiatry; Visit Provider Psychiatry & Neurology Psychiatry | DX: F31.9 Bipolar disorder, unspecified (principal) | CPT/HCPCS: 90792; 90870; 99231; 99232 ==